=== PATIENT | female | born 1945 | race Two or more races ===

== ENCOUNTER 2019-11-11 18:24 | Inpatient (IN) | payer OTHER, MEDICAID ==
[~2019-11-11] VITALS: Ht 167.6 cm; Wt 69.5 kg
[~2019-11-11 18:24] MED LIST: LEVO25TA6
[2019-11-11 19:10] LABS: Basophils # (auto) 0 10 ^3/uL (0-0.2); Basophils % (auto) 0.5 % (0.0-2.0); Eosinophils # (auto) 0.1 10 ^3/uL (0-0.8); Eosinophils % (auto) 2.9 % (0.0-7.0); Hematocrit 39.8 % (36.0-46.0); Hemoglobin 13.4 g/dL (12.2-16.2); Lymphocytes # (auto) 0.8 10 ^3/uL (0.4-5.4); Lymphocytes % (auto) 25.9 % (10.0-50.0); Mean Corpuscular Hemoglobin 29.8 pg (28.0-32.0); Mean Corpuscular Hgb Conc. 33.8 g/dL (32.0-36.0); Mean Corpuscular Volume 88.4 fL (80.0-100.0); Monocytes # (auto) 0.4 10 ^3/uL (0-1.3); Neutrophils # (auto) 1.9 10 ^3/uL (1.6-8.6); Neutrophils % (auto) 59.7 % (37.0-80.0); Nucleated Red Blood Cells % 0.1 %; Platelet Count (auto) 182 10^3/uL (140-450); Red Cell Distribution Width 16.1 % (11.8-14.3); White Blood Cell 3.3 10^3/uL (4.4-10.8)
[2019-11-11 19:27] LABS: Albumin 3.4 g/dL (3.4-5.0); Calcium 8.3 mg/dL (8.5-10.1); Potassium 3.6 mmol/L (3.5-5.1)
[2019-11-11 19:30] LABS: Bilirubin, Total 0.5 mg/dL (0.2-1.0); Total Protein 7.1 g/dL (6.4-8.2)
[2019-11-11] MEDS ORDERED: cefTRIAXone 1GM/50ML D5W 50 ML IV ONE (20:00)
[2019-11-11] MEDS ORDERED: CLINDAMYCIN 900MG IV 50 ML IV ONE (20:00)
[2019-11-12] VITALS (10 sets, daily range): BP systolic 118–139; BP diastolic 54–79
[2019-11-12] MEDS ORDERED: DOCUSATE SOD 100 MG CAP PO PRN (02:30)
[2019-11-12] MEDS ORDERED: ACETAMINOPHEN 325 MG TAB PO PRN (02:30)
[2019-11-12] MEDS ORDERED: ONDANSETRON HCL 4 MG/2 ML VIAL IV PRN (02:30)
[2019-11-12] MEDS ORDERED: TEMAZEPAM 15 MG CAP PO PRN (02:30)
--- NOTE | 2019-11-12 05:00 | NUR ---
MS admit from ER TON LAY admitted to tele/MS. No SBAR received. Patient oriented to Satnam pleitez RN, west unit, 274 room, A bed, and unit policies regarding patient care and visiting hours. Patient weighed by bedscale and encouraged to call if they need something. All questions and concerns addressed, patient verbalized understanding. Pictures taken of right lower leg anterior for documentation of skin condition.
[2019-11-12] MEDS ORDERED: LEVO100T8 PO (05:11)
[2019-11-12] MEDS: CLINDAMYCIN 600MG IV 50 ML IV SCH ×3 (05:48→21:44)
[2019-11-12] MEDS: LEVOTHYROXINE SODIUM 50 MCG TAB PO SCH (06:11)
[2019-11-12] MEDS: cefTRIAXone 1GM/50ML D5W 50 ML IV SCH (08:46)
[2019-11-12] MEDS: FAMOTIDINE 20 MG TAB PO SCH ×2 (09:12→21:44)
--- NOTE | 2019-11-12 09:20 | NUR ---
REPORT RECEIVED FROM AMEYA OVIEDO Patient was upgraded to telemetry after cardiology consult. Awaiting Tele box.
--- NOTE | 2019-11-12 09:29 | NUR ---
EKG DONE sinus bradycardia 46 noted. Orion confirmed.
[2019-11-12 09:35] LABS: Magnesium 2.5 mg/dL (1.6-2.6)
--- NOTE | 2019-11-12 10:15 | NUR ---
RECYCLING WORKER AT BEDSIDE
--- NOTE | 2019-11-12 10:38 | NUR ---
TELE MONITOR PLACED ON PATIENT tele #55, reading shows SB 51.
--- NOTE | 2019-11-12 15:03 | NUR ---
AT BEDSIDE updated on patient status, plan of care reviewed with patient and she verbalized understanding. No new orders received.
--- NOTE | 2019-11-12 15:27 | NUR ---
PATIENT CONFUSED Patient pulled IV out and got dressed stating she was going home, Moved to 275A with a sitter.
--- NOTE | 2019-11-12 15:40 | NUR ---
CALLED PATIENT FAMILY after password verification, patient's daughter Danii was updated on patient being moved to a new room with a sitter. plan of care was discussed with the patient and she verbalized understanding. All questions answered.
--- NOTE | 2019-11-12 16:15 | NUR ---
IV insertion IV access obtained, via clean sterile technique by inserting 22 gauge catheter at left wrist after 2 attempts. IV secured properly. No trauma to site. Patient tolerated well. IV to left forearm was removed, pressure dressing applied, catheter intact. Patient tolerated well.
--- NOTE | 2019-11-12 19:30 | NUR ---
Opening Shift Note Received report from Samantha HOU. Assumed care of patient, awake and alert. Sitter at bedside. No S/S of distress/SOB or pain. Instructed on POC and to call for assist PRN. Fall precaution measures in place, will continue to monitor for changes Q1hr and PRN.
--- NOTE | 2019-11-12 23:21 | NUR ---
Received call from patient's daughter Danii requesting for update. I update her that patient is stable at this time and resting with sitter in the room.
--- NOTE | 2019-11-13 00:35 | NUR ---
Spoke to hospitalist Laurita Geronimo MD to request pain medication for severe pain since patient doesn't have one. made aware of allergy to Codeine, ordered Morphine IV see eMAR.
[2019-11-13] MEDS ORDERED: MORPHINE SULF INJ 2 MG/ML SYRINGE 1ML IV PRN (00:45)
--- NOTE | 2019-11-13 02:48 | NUR ---
Rounding Patient awake at this time with the sitter at bedside, no sob/distress or pain. Continue care.
[2019-11-13] MEDS: CLINDAMYCIN 600MG IV 50 ML IV SCH ×2 (06:05→14:35)
[2019-11-13 06:07] VITALS: BP 109/55
[2019-11-13] MEDS: LEVOTHYROXINE SODIUM 50 MCG TAB PO SCH (06:39)
[2019-11-13 07:28] LABS: Basophils # (auto) 0 10 ^3/uL (0-0.2); Basophils % (auto) 0.4 % (0.0-2.0); Eosinophils # (auto) 0.1 10 ^3/uL (0-0.8); Eosinophils % (auto) 3.3 % (0.0-7.0); Hematocrit 41.1 % (36.0-46.0); Hemoglobin 13.7 g/dL (12.2-16.2); Lymphocytes # (auto) 1.4 10 ^3/uL (0.4-5.4); Lymphocytes % (auto) 47.8 % (10.0-50.0); Mean Corpuscular Hemoglobin 29.5 pg (28.0-32.0); Mean Corpuscular Hgb Conc. 33.3 g/dL (32.0-36.0); Mean Corpuscular Volume 88.4 fL (80.0-100.0); Monocytes # (auto) 0.3 10 ^3/uL (0-1.3); Monocytes % (auto) 11.9 % (0.0-12.0); Neutrophils # (auto) 1.1 10 ^3/uL (1.6-8.6); Neutrophils % (auto) 36.6 % (37.0-80.0); Nucleated Red Blood Cells % 0.1 %; Platelet Count (auto) 217 10^3/uL (140-450); Red Blood Cells 4.65 10^6/uL (4.0-5.20); Red Cell Distribution Width 16.4 % (11.8-14.3); White Blood Cell 2.9 10^3/uL (4.4-10.8)
--- NOTE | 2019-11-13 07:30 | NUR ---
Opening Shift Note Assumed care of patient, awake and alert. No S/S of distress/SOB or pain. Instructed on POC and to call for assist PRN, will continue to monitor for changes Q1hr and PRN.
[2019-11-13 07:43] LABS: Calcium 8.5 mg/dL (8.5-10.1); Potassium 3.9 mmol/L (3.5-5.1)
[2019-11-13 07:45] LABS: BUN/Creatinine Ratio 15.4
[2019-11-13] MEDS: cefTRIAXone 1GM/50ML D5W 50 ML IV SCH (09:42)
[2019-11-13] MEDS: FAMOTIDINE 20 MG TAB PO SCH (09:42)
[2019-11-13] MEDS ORDERED: SACC250C PO (11:00)
[2019-11-13] MEDS ORDERED: CLIN300C8 PO (11:00)
--- NOTE | 2019-11-13 13:12 | NUR ---
assessment Patient is a 73 year old female who is alert and oriented. Patients cognitive abilities are intact. Prior to admission patient lived home with family and functioned independently. Patient informed me she is able to care for her own ADLs. Per patient she will return home to her prior living arrangements post discharge and family will transport her home. Patient has a cane for home use. Patient feels safe returning home on discharge. I informed patient she has a consult for home health PT, wound care, and medication management, vitals. Patient agreed. MD order has been sent to [facility]. Per Jackeline at [facility] she has accepted patient for service on 11/15/19. Patient has been notified. I informed patient she has a right to speak to a transition social worker regarding all care. I informed patient she has a right to participate in any and all discharge planning. Patient does not have a POA and advanced directive. I have offered patient information on POA and advanced directives. I informed the patient the advantages and benefits of having an Advanced Directive. Patient verbalized understanding and agreed to discharge plan. Addendum: 11/13/19 at 1318 by Dalila ALEXANDER Amended: Links added.
--- NOTE | 2019-11-13 14:52 | NUR ---
re-assessment Per Rosina from [facility] auth for Rachna Alberts is [id number]. Jackeline has been notified at [facility] health Addendum: 11/13/19 at 1452 by Dalila ALEXANDER Amended: Links added.
--- NOTE | 2019-11-13 17:34 | NUR ---
Discharge instructions given as ordered. Encourage to follow up with PMD as instructed. All questions and concerns addressed. Patient verbalized understanding. IV removed with catheter intact, pressure dressing applied. Telemetry unit returned to ICU. Patient taken to vehicle via wheelchair with all personal belongings, accompanied by staff and family member. No distress noted at time of departure.
== END 2019-11-13 18:40 | disposition home health service (06) | DRG 603 ==
LOC: ER 18:27 → WEST WING 18:28 → TELE-WESTW 11-12 09:21
PROVIDERS: ADMIT Nurse Practitioner; ATTEND Internal Medicine
DX: L03.115 Cellulitis of right lower limb (principal); E87.6 Hypokalemia; D72.829 Elevated white blood cell count, unspecified; F03.90 Unspecified dementia, unspecified severity, without behavioral disturbance, psychotic disturbance, mood disturbance, and anxiety; E03.9 Hypothyroidism, unspecified; Z88.5 Allergy status to narcotic agent; Z83.3 Family history of diabetes mellitus
CPT/HCPCS: 36415; 71045; 73700; 80048; 80053; 83735; 84443; 84484; 85025; 85379; 87040; 93306; 93886; 93971; 96365; 96368; G0378; J0696; J3490

== ENCOUNTER 2020-01-27 13:50 | Inpatient (IN) | payer OTHER, MEDICAID ==
[~2020-01-27] VITALS: Ht 165.1 cm; Wt 75.4 kg
[~2020-01-27 13:50] MED LIST changes: +CLIN300C8 PO; +LEVO100T8 PO; +SACC250C PO
[2020-01-27 15:14] LABS: Basophils # (auto) 0 10 ^3/uL (0-0.2); Basophils % (auto) 0.3 % (0.0-2.0); Eosinophils # (auto) 0 10 ^3/uL (0-0.8); Eosinophils % (auto) 0.4 % (0.0-7.0); Hematocrit 40.5 % (36.0-46.0); Hemoglobin 13.2 g/dL (12.2-16.2); Lymphocytes % (auto) 13.6 % (10.0-50.0); Mean Corpuscular Hemoglobin 29.8 pg (28.0-32.0); Mean Corpuscular Hgb Conc. 32.6 g/dL (32.0-36.0); Mean Corpuscular Volume 91.6 fL (80.0-100.0); Monocytes # (auto) 0.6 10 ^3/uL (0-1.3); Monocytes % (auto) 7.5 % (0.0-12.0); Neutrophils # (auto) 5.9 10 ^3/uL (1.6-8.6); Neutrophils % (auto) 78.2 % (37.0-80.0); Platelet Count (auto) 164 10^3/uL (140-450); Red Blood Cells 4.42 10^6/uL (4.0-5.20); Red Cell Distribution Width 14.5 % (11.8-14.3); White Blood Cell 7.6 10^3/uL (4.4-10.8)
[2020-01-27 15:25] LABS: Albumin 3.3 g/dL (3.4-5.0); Anion Gap 7 (5-15); Blood Urea Nitrogen 8 mg/dL (7-18); Calcium 8.8 mg/dL (8.5-10.1); Carbon Dioxide 28 mmol/L (21-32); Chloride 103 mmol/L (98-107); Glucose 90 mg/dL (74-106); Magnesium 2.4 mg/dL (1.6-2.6); Potassium 3.2 mmol/L (3.5-5.1); Sodium 138 mmol/L (136-145)
[2020-01-27 15:32] LABS: Alanine Aminotransferase 19 U/L (13-56); Alkaline Phosphatase 77 U/L (45-117); Aspartate Aminotransferase 16 U/L (15-37); Bilirubin, Total 0.9 mg/dL (0.2-1.0); GFR African American 90 mL/min; GFR Non-African American 75 mL/min; Total Protein 7.2 g/dL (6.4-8.2)
[2020-01-27] MEDS ORDERED: SODIUM CHLORIDE 0.9% 1,000 ML IVB ONE (15:34)
[2020-01-27] MEDS ORDERED: ONDANSETRON HCL 4 MG/2 ML VIAL IV ONE (15:45)
[2020-01-27] MEDS ORDERED: MORPHINE SULF INJ 2 MG/ML SYRINGE 1ML IV ONE (15:45)
[2020-01-27] MEDS ORDERED: cefTRIAXone 1GM/50ML D5W 50 ML IV ONE (16:30)
[2020-01-27] MEDS ORDERED: metroNIDAZOLE 500MG/100ML 100 ML IV ONE (16:30)
[2020-01-27 16:55] LABS: Urine Bacteria MOD /hpf (None Seen); Urine Blood 2+ /uL (Negative); Urine Specific Gravity 1.003 (1.001-1.035); Urine WBC 28 /hpf (0 - 5)
[2020-01-27] MEDS ORDERED: SODIUM CHLORIDE 0.9% 1,000 ML IV SCH ×2 (19:30→23:05)
[2020-01-27] MEDS ORDERED: MORPHINE SULF INJ 2 MG/ML SYRINGE 1ML IV PRN ×2 (19:30→23:15)
[2020-01-27] MEDS ORDERED: NITROGLYCERIN 0.4 MG SL TAB SL PRN ×2 (19:30→23:15)
[2020-01-27] MEDS ORDERED: POTASSIUM CHL 20MEQ/100ML 100 ML IV ONE (19:30)
--- NOTE | 2020-01-27 22:30 | NUR ---
Telemetry admit from ER TON LAY admitted to Telemetry unit after no SBAR received. With infiltrated IV to left outer AC. Patient oriented to BERTRAND PALACIOS RN primary RN, unit, room, bed, and unit policies regarding patient care and visiting hours. Patient now on continuous telemetry monitoring, tele box #53 and telemetry reading on arrival to unit is sinus bradycardia at 54. Patient weighed by bed scale and encouraged to call if they need something. All questions and concerns addressed, patient verbalized understanding. Note: Wound photos taken for reference. IV infusion stopped d/t infiltrated IV.
[2020-01-27] MEDS ORDERED: ALUM & MAG HYDROX-SIMETH LIQ(MAALOX) 30 ML PO PRN (23:15)
[2020-01-27] MEDS ORDERED: DOCUSATE SOD 100 MG CAP PO PRN (23:15)
[2020-01-27] MEDS ORDERED: ONDANSETRON HCL 4 MG/2 ML VIAL IV PRN (23:15)
[2020-01-27] MEDS ORDERED: LORazepam 0.5 MG TAB PO PRN (23:15)
[2020-01-27] MEDS ORDERED: ACETAMINOPHEN 325 MG TAB PO PRN (23:15)
--- NOTE | 2020-01-27 23:30 | NUR ---
IV insertion IV access obtained, via clean sterile technique by inserting 22 gauge catheter at right wrist after 2 attempts. IV secured properly. No trauma to site. Patient tolerated well.
--- NOTE | 2020-01-28 02:14 | NUR ---
Received call from [employer] reporting that patient is bradycardic at 40. Patient is resting in bed with eyes closed at this time. Respirations are even and non-labored. No distress noted.
--- NOTE | 2020-01-28 04:25 | NUR ---
Spoke with Gilles in lab. Previous urine sample sent for UA will be utilized for Bacterial culture.
[2020-01-28 05:00] VITALS: BP 106/67
[2020-01-28] MEDS: metroNIDAZOLE 500MG/100ML 100 ML IV SCH ×3 (06:20→21:17)
[2020-01-28] MEDS: GABAPENTIN 100 MG CAP PO SCH ×3 (06:20→21:17)
[2020-01-28] MEDS: LEVOTHYROXINE SODIUM 100 MCG TAB PO SCH (06:21)
[2020-01-28] MEDS ORDERED: LEVOTHYROXINE SODIUM 100 MCG TAB PO SCH (07:00)
[2020-01-28 07:15] LABS: Basophils # (auto) 0 10 ^3/uL (0-0.2); Basophils % (auto) 0.3 % (0.0-2.0); Eosinophils # (auto) 0.1 10 ^3/uL (0-0.8); Hematocrit 39.8 % (36.0-46.0); Hemoglobin 13.2 g/dL (12.2-16.2); Lymphocytes # (auto) 0.9 10 ^3/uL (0.4-5.4); Lymphocytes % (auto) 17.6 % (10.0-50.0); Mean Corpuscular Hemoglobin 29.9 pg (28.0-32.0); Mean Corpuscular Hgb Conc. 33.3 g/dL (32.0-36.0); Monocytes # (auto) 0.4 10 ^3/uL (0-1.3); Monocytes % (auto) 8.4 % (0.0-12.0); Neutrophils # (auto) 3.5 10 ^3/uL (1.6-8.6); Neutrophils % (auto) 71.7 % (37.0-80.0); Platelet Count (auto) 183 10^3/uL (140-450); Red Blood Cells 4.42 10^6/uL (4.0-5.20); Red Cell Distribution Width 14.3 % (11.8-14.3); White Blood Cell 4.8 10^3/uL (4.4-10.8)
[2020-01-28 07:29] LABS: INR 0.97 (0.9-1.15); Partial Thromboplastin Time 26.2 sec (23.0-31.2)
[2020-01-28 07:32] LABS: Albumin 2.8 g/dL (3.4-5.0); Magnesium 2.3 mg/dL (1.6-2.6)
[2020-01-28 07:36] LABS: Bilirubin, Total 0.6 mg/dL (0.2-1.0); Phosphorus 3.2 mg/dL (2.5-4.90); Total Protein 5.9 g/dL (6.4-8.2)
[2020-01-28 07:37] LABS: Cholesterol 140 mg/dL (< 200); HDL Cholesterol 63 mg/dL (40-59); LDL Cholesterol 66 mg/dL (< 100); Triglycerides 64 mg/dL (< 150)
--- NOTE | 2020-01-28 08:00 | NUR ---
Received pt resting in bed, call light within reach, pt reports mild back pain 3/10, pt offered pain medication, pt refused at this time, bed alarm on, will continue to monitor pt.
[2020-01-28 09:14] VITALS: BP 117/61
[2020-01-28] MEDS: cefTRIAXone 1GM/50ML D5W 50 ML IV SCH (09:30)
[2020-01-28] MEDS: FLORASTOR (S. BOULARDII) 250 MG CAP PO SCH (09:31)
[2020-01-28] MEDS: ENOXAPARIN SOD 40 MG/0.4 ML SYRINGE SC SCH (09:31)
--- NOTE | 2020-01-28 10:12 | NUR ---
WOUND CARE NOTE: Wound care in to see patient per wound care request regarding "chronic wound RLE, prolapse" that are noted present on admission. Bedside nurse took photograph of patient's wound/skin issue upon admission for reference. Patient is 74 years old female admitted for Acute Pyelonephritis likely secondary to Gram Negative Bacteria. Patient is resting in bed in Rm. 297A. Patient is awake,alert and fully oriented. She's in no stated pain at this time. She's self turning and repositioning and her Nathanael score is 20. Noted patient's open ulceration to her Rt distal hatch. Wound measuring 1.8x1cm. Wound bed is red with dark red sil wound, minimal serous drainage noted, no odor noted. Patient reported that she has had the R hatch wound "years ago" when she hurt her legs and "wound never heal". Patient denies Diabetes. Cleansed patient's Rt lower leg wound with NS, patted dry with gauze, applied Thera honey gel and covered with Opti foam gentle dressing. Patient also came in with bladder prolapse, advised to keep site clean and moist. AMEYA Chan made aware. Patient tolerated well, bed in low position, call wolf on hand, bed alarm on. RECOMMENDATION: Nursing to continue with EOD/PRN dressing change to Rt lower leg wound per MD order,redistribute pressure points with pillows, continue monitoring by wound care while patient is hospitalized. Addendum: 01/28/20 at 1608 by Kerry Guerrero RN Amended: Links added.
[2020-01-28] MEDS: POTASSIUM CHL 20MEQ/100ML 100 ML IV SCH ×2 (11:12→13:07)
--- NOTE | 2020-01-28 12:40 | NUR ---
Dr. Saavedra / GI at bed side to see pt, doctor discussed the plan of care for pt, pt educated to be npo for MRCP by nurse and doctor, pt verbalized understanding.
[2020-01-28 13:13] VITALS: BP 101/50
--- NOTE | 2020-01-28 16:28 | NUR ---
As per MRI, unable to do the MRCP due to pt drinking fluids. Pt was re-educated not to eat or drink after midnight for procedure.
[2020-01-28 16:41] VITALS: BP 108/63
--- NOTE | 2020-01-28 17:14 | NUR ---
Gutierrez catheter insertion Patient assessed by Dr. Marie / urologist and determined to be in need of gutierrez catheter. Order received from MD. Patient educated on catheter and reason for insertion. All questions answered. Gutierrez catheter 16 guage Italian inserted with clean sterile technique. Patient tolerated well.
--- NOTE | 2020-01-28 20:00 | NUR ---
Opening Shift Note Assumed care of patient, awake and alert. No S/S of distress/SOB or pain. Instructed on POC and to call for assist PRN, will continue to monitor for changes Q1hr and PRN.
[2020-01-28 22:00] VITALS: BP 135/62
[2020-01-29 05:00] VITALS: BP 112/48
[2020-01-29] MEDS: GABAPENTIN 100 MG CAP PO SCH ×3 (05:13→22:17)
[2020-01-29] MEDS: LEVOTHYROXINE SODIUM 100 MCG TAB PO SCH (05:13)
[2020-01-29] MEDS: metroNIDAZOLE 500MG/100ML 100 ML IV SCH ×3 (05:30→22:16)
--- NOTE | 2020-01-29 08:10 | NUR ---
URINE SENT TO LAB FOR PENDING CULTURE ORDER.
--- NOTE | 2020-01-29 08:21 | NUR ---
OPENING SHIFT NOTE: PATIENT RESTING IN BED AWAKE. PATIENT A/OX4 WITH MILD FORGETFULNESS, RESPIRATIONS EVEN AND UNLABORED. NORRIS HUNG BELOW BLADDER, FREE OF KINKS. THIS RN OBTAINED URINE SPECIMEN FOR CULTURE. PATIENT UPDATED ON PLAN OF CARE. CALL LIGHT PLACED WITHIN REACH, WILL CONTINUE TO MONITOR.
[2020-01-29 08:28] LABS: Urine Bacteria FEW /hpf (None Seen); Urine Blood 2+ /uL (Negative); Urine Mucus FEW (None Seen); Urine WBC 3 /hpf (0 - 5)
[2020-01-29 08:36] LABS: Alcohol, Urine < 3.0 mg/dL (0-10); Amphetamine Screen, Urine NEGATIVE (NEGATIVE); Barbiturate Scree,Urine NEGATIVE (NEGATIVE); Benzodiazephine Screen, Urine NEGATIVE (NEGATIVE); Cannabinoid Screen, Urine NEGATIVE (NEGATIVE); Cocaine Screen, Urine NEGATIVE (NEGATIVE); Opiate Scree,Urine NEGATIVE (NEGATIVE); Phencyclidine Screen, Urine NEGATIVE (NEGATIVE)
[2020-01-29 09:00] VITALS: BP 113/58
[2020-01-29] MEDS: cefTRIAXone 1GM/50ML D5W 50 ML IV SCH (09:24)
[2020-01-29] MEDS: FLORASTOR (S. BOULARDII) 250 MG CAP PO SCH (09:25)
[2020-01-29] MEDS: ENOXAPARIN SOD 40 MG/0.4 ML SYRINGE SC SCH (09:25)
--- NOTE | 2020-01-29 09:40 | NUR ---
MD CHAPMAN ROUNDING.
--- NOTE | 2020-01-29 09:48 | NUR ---
MD KARINE NAGEL.
--- NOTE | 2020-01-29 09:48 | NUR ---
MRI VERIFIED PATIENT IS ON THE SCHEDULE FOR MRCP TODAY.
--- NOTE | 2020-01-29 09:50 | NUR ---
UNABLE TO SCHEDULE FOLLOW UP WITH DR. CORCORAN: PATIENT IS [facility], AND PER UROLOGY RISK PROFESSIONAL PATIENT MUST GET REFERRAL FROM PRIMARY
--- NOTE | 2020-01-29 12:00 | NUR ---
PATIENT TAKEN DOWN TO MRI.
[2020-01-29 13:00] VITALS: BP 133/79
--- NOTE | 2020-01-29 15:30 | NUR ---
HOME HEALTH: PER PATIENT AND PATIENT FAMILY, THEY CURRENTLY HAVE HOME CARE, HOME HEALTH FOR WOUND CARE.
--- NOTE | 2020-01-29 17:54 | NUR ---
CONSENTS: PATIENT UNABLE TO RECALL MD YIN SPEAKING WITH HER ABOUT ERCP PROCEDURE . PATIENT UNABLE TO SIGN INFORMED CONSENTS AT THIS TIME. BLOOD TRANSFUSION CONSENT SIGNED AND PLACED IN THE HARD CHART.
[2020-01-29 18:02] VITALS: BP 133/69
--- NOTE | 2020-01-29 18:52 | NUR ---
CARE ENDORSED TO NOC RN.
--- NOTE | 2020-01-29 19:00 | NUR ---
Received report from the Day RN. Bullock.
--- NOTE | 2020-01-29 19:24 | NUR ---
SB @ 58 per minute @ the Tele # 54. Pt. SB @ the 50's to 60's per minute.
--- NOTE | 2020-01-29 20:00 | NUR ---
Complete assessment done.
[2020-01-29 22:00] VITALS: BP 149/67
--- NOTE | 2020-01-29 22:16 | NUR ---
Meds. as scheduled given. Pt. made aware about the mechanism of action of the scheduled meds. Pt. verbalized understanding.
--- NOTE | 2020-01-30 00:10 | NUR ---
Pt. SB @ the monitor, stimulated pt. by waking up. Pt. HR returned to 50's to 60's
--- NOTE | 2020-01-30 02:00 | NUR ---
Pt. sleeping well. No s/s of pain or discomfort.
[2020-01-30 05:00] VITALS: BP 115/62
[2020-01-30] MEDS: GABAPENTIN 100 MG CAP PO SCH ×3 (06:31→21:36)
[2020-01-30] MEDS: metroNIDAZOLE 500MG/100ML 100 ML IV SCH ×3 (06:31→21:36)
[2020-01-30] MEDS: LEVOTHYROXINE SODIUM 100 MCG TAB PO SCH (06:32)
--- NOTE | 2020-01-30 08:00 | NUR ---
OPENING SHIFT NOTE: PATIENT RESTING IN BED AWAKE. PATIENT A/OX4 WITH MILD FORGETFULNESS, RESPIRATIONS EVEN AND UNLABORED. NORRIS HUNG BELOW BLADDER, FREE OF KINKS. PATIENT UPDATED ON PLAN OF CARE. CURRENTLY NPO STATUS. CALL LIGHT PLACED WITHIN REACH, WILL CONTINUE TO MONITOR.
[2020-01-30 09:00] VITALS: BP 130/72
[2020-01-30] MEDS: HYDROcodone-ACET 5/325MG TAB PO PRN (09:33)
[2020-01-30] MEDS: ENOXAPARIN SOD 40 MG/0.4 ML SYRINGE SC SCH (09:33)
[2020-01-30] MEDS: FLORASTOR (S. BOULARDII) 250 MG CAP PO SCH (09:33)
[2020-01-30] MEDS: cefTRIAXone 1GM/50ML D5W 50 ML IV SCH (09:33)
--- NOTE | 2020-01-30 10:29 | NUR ---
MD SAINZ ROUNDING: EKG TO BE DONE PRIOR TO PROCEDURE. PATIENT UPDATED ON PLAN OF CARE.
--- NOTE | 2020-01-30 11:20 | NUR ---
EKG: MD AT BEDSIDE, HR 38 AND 41BPM. SINUS BRADYCARDIA. PATIENT ASYMPTOMATIC. MD TO PLACE CARDIOLOGY CONSULT.
--- NOTE | 2020-01-30 11:40 | NUR ---
CALL FROM PRINTING PRESS MACHINIST VIRI: UPDATED ON CURRENT CARDIAC STATUS, PRINTING PRESS MACHINIST TO UPDATE ANAESTHESIA. SHE ALSO RECOMMEND PER PROTOCOL COVID SWAB. THIS RN TO CALL LAB FOR SWAB. MD SAINZ MADE AWARE.
[2020-01-30 11:49] LABS: BUN/Creatinine Ratio 5.9; Calcium 8.3 mg/dL (8.5-10.1)
[2020-01-30 12:00] LABS: Potassium 2.9 mmol/L (3.5-5.1)
--- NOTE | 2020-01-30 12:06 | NUR ---
CRITICAL LAB: K+ 2.9 PAGE MADE TO EMELI.
--- NOTE | 2020-01-30 12:18 | NUR ---
MD DINH ROUNDING: "PATIENT CLEARED FOR PROCEDURE FROM CARDIAC STANDPOINT," PER DR. DINH.
--- NOTE | 2020-01-30 12:21 | NUR ---
CALL FROM MD YIN: INQUIRING ABOUT CARDIAC CLEARANCE, INFORMED MD THAT DR. DINH JUST CLEARED PATIENT. THEN MD YIN INQUIRED ABOUT POTASSIUM, INFORMED HIM THAT I AM WAITING FOR CALL BACK FROM MD SAINZ. INSISTED I BRING PATIENT DOWN TO OR AND THEY CAN HANG POTASSIUM IN THE OR.
[2020-01-30] MEDS ORDERED: POTASSIUM CHL 20MEQ/100ML 100 ML IV SCH (12:30)
--- NOTE | 2020-01-30 12:31 | NUR ---
CANCELLED: THIS RN EN ROUTE TO OR WITH COVID SWAB IN HAND. CALL FROM MD YIN STATING PROCEDURE IS CANCELLED AND SCHEDULED TOMORROW. THIS RN INFORMED MD PATIENT CONFUSED AND WOULD LIKE A DR. TO COME SPEAK WITH HER AT BEDSIDE REGARDING, "WHAT IS HAPPENING." MD AGREED. PATIENT TAKEN BACK TO ROOM.
--- NOTE | 2020-01-30 12:35 | NUR ---
CECI WALKED TO LAB.
--- NOTE | 2020-01-30 12:35 | NUR ---
MD YIN SEEN LEAVING PATIENT BEDSIDE. PATIENT CONFIRMED HE UPDATED HER ON PLAN OF CARE.
[2020-01-30 13:00] VITALS: BP 126/70
--- NOTE | 2020-01-30 15:31 | NUR ---
ECHO READ FROM OCTOBER VISIT. CURRENT ORDER CANCELLED.
[2020-01-30] MEDS ORDERED: POTASSIUM EFFERVESENT TAB 25 MEQ PO ONE (15:45)
--- NOTE | 2020-01-30 16:16 | NUR ---
CALL FROM EMELI: CMP SCHEDULED FOR 01/30 0000 CHANGED TO 0400 01/30, AND ADDITIONAL BMP ORDER PLACED FOR 01/29 FOR PRIMARY MD SAINZ TO ADDRESS PRIOR TO GOING HOME PER REQUEST. COMMUNICATION ORDER ALSO CHANGED, TEXT KEPT THE SAME BUT TO NOTIFY TOWER EQUIPMENT INSTALLER NIGHT HOSPITALIST IF K+ IS LESS THAN OR EQUAL TO 3.5 AT 0400.
[2020-01-30] MEDS: POTASSIUM CHLORIDE 40 MEQ in D5W 5% 1,000 ML IV SCH (16:20)
[2020-01-30 17:00] VITALS: BP 127/76
--- NOTE | 2020-01-30 18:42 | NUR ---
WOUND CARE PERFORMED ORDERED.
--- NOTE | 2020-01-30 18:43 | NUR ---
CARE ENDORSED TO NOC RN.
--- NOTE | 2020-01-30 19:10 | NUR ---
Received report to from the Day Shift RN. Bullock. Initial assessment done.
--- NOTE | 2020-01-30 19:38 | NUR ---
Pt. SB @ 45/min. with BBB @ [employer] # 54. Pt. denies chest pain and denies chest discomfort.
--- NOTE | 2020-01-30 20:00 | NUR ---
Complete assessment done. Pt. resting in bed, calm and resting quietly watching TV. Pt. with D5 W with 40 meq. KCl @ 50 ml./hr. @ the Right Wrist G # 22 running continuous to consume for K level today of 2.9. Will continue to monitor pt. lab. result of K level as ordered by .
--- NOTE | 2020-01-30 21:36 | NUR ---
Meds. as scheduled given. Pt. provided health teachings on the use and benefits of these meds. Pt. verbalized understanding. Pt. ready to sleep, keep safe and fundraising director bed. Keep room free from clutter. Call-light @ the bedside.
[2020-01-30 21:40] LABS: Anion Gap 7 (5-15); BUN/Creatinine Ratio 5.6; Blood Urea Nitrogen 3 mg/dL (7-18); Calcium 7.9 mg/dL (8.5-10.1); Carbon Dioxide 26 mmol/L (21-32); Chloride 108 mmol/L (98-107); GFR African American 142 mL/min; GFR Non-African American 118 mL/min; Glucose 106 mg/dL (74-106); Sodium 141 mmol/L (136-145)
[2020-01-30 23:12] VITALS: BP 137/72
--- NOTE | 2020-01-31 00:10 | NUR ---
Pt. calm and sleeping undisturbed. No s/s of pain or discomfort. Pt. still SB @ the 40's to 50's. Pt. on NPO post MN for possible ERCP tomorrow once K level is within normal range. Pt. on D5W with 40 meq. KCL @ 50 ml./hr. continuous till 1 liter bag consume. Continue to monitor pt. telemetry status and labs. q daily. Call-light @ the bedside.
--- NOTE | 2020-01-31 02:00 | NUR ---
Pt. sleeping and resting quietly. No s/s of pain or discomfort. Kept on NPO since midnight for possible ERCP today as ordered once K level is within normal range result.
--- NOTE | 2020-01-31 04:00 | NUR ---
Sleeping well. Kept. pt. on NPO for possible ERCP today. Latest K Level = 4.0
[2020-01-31 05:28] VITALS: BP 121/66
[2020-01-31] MEDS: GABAPENTIN 100 MG CAP PO SCH ×3 (06:22→21:55)
[2020-01-31] MEDS: metroNIDAZOLE 500MG/100ML 100 ML IV SCH ×3 (06:22→21:55)
[2020-01-31] MEDS: LEVOTHYROXINE SODIUM 100 MCG TAB PO SCH (06:23)
[2020-01-31] MEDS ORDERED: IOHEXOL 300 MG/ML 100ML BOTTLE IJ ONE (06:33)
[2020-01-31 06:44] LABS: Albumin 2.6 g/dL (3.4-5.0); Calcium 8.5 mg/dL (8.5-10.1); Potassium 3.4 mmol/L (3.5-5.1)
[2020-01-31 06:46] LABS: BUN/Creatinine Ratio 4.9
[2020-01-31 06:49] LABS: Bilirubin, Total 0.5 mg/dL (0.2-1.0)
[2020-01-31] MEDS ORDERED: fentaNYL CITRATE 100 MCG/2 ML VL ONE (07:23)
[2020-01-31] MEDS ORDERED: MIDAZOLAM HCL 1MG/1ML-2 ML VIAL ONE (07:24)
--- NOTE | 2020-01-31 07:24 | NUR ---
PATIENT TAKEN DOWN TO PACU.
[2020-01-31] MEDS ORDERED: ROCURONIUM 10MG/ML 10ML VIAL IV ONE (07:27)
[2020-01-31] MEDS ORDERED: SUCCINYLCHOLINE CHLORIDE 20 MG/ML 10ML VIAL IV ONE (07:36)
[2020-01-31] MEDS ORDERED: ONDANSETRON HCL 4 MG/2 ML VIAL ONE (08:13)
[2020-01-31] MEDS ORDERED: PROPOFOL 10 MG/ML 20 ML IV ONE (08:13)
[2020-01-31] MEDS ORDERED: NEOSTIGMINE 1 MG/ML INJ (10mg/10ML VIAL) ONE (08:23)
[2020-01-31] MEDS ORDERED: GLYCOPYRROLATE 0.2 MG/ML 1ML VIAL ONE (08:24)
[2020-01-31] MEDS: POTASSIUM CHLORIDE 40 MEQ in D5W 5% 1,000 ML IV SCH (08:54)
[2020-01-31] MEDS ORDERED: HYDROmorphone HCL 2 MG/ML VL ONE (08:57)
[2020-01-31] MEDS ORDERED: METOCLOPRAMIDE HCL 5MG/ml INJ 2ml VIAL ONE (08:57)
[2020-01-31] MEDS ORDERED: METOCLOPRAMIDE HCL 5MG/ml INJ 2ml VIAL IV PRN (09:00)
[2020-01-31] MEDS ORDERED: HYDROmorphone HCL 2 MG/ML VL IV PRN (09:00)
--- NOTE | 2020-01-31 09:30 | NUR ---
PATIENT BACK IN ROOM FROM OR. VS STABLE, PATIENT RESTING COMFORTABLY.
[2020-01-31] MEDS: FLORASTOR (S. BOULARDII) 250 MG CAP PO SCH (10:24)
[2020-01-31] MEDS: cefTRIAXone 1GM/50ML D5W 50 ML IV SCH (10:24)
[2020-01-31] MEDS: ENOXAPARIN SOD 40 MG/0.4 ML SYRINGE SC SCH (10:24)
--- NOTE | 2020-01-31 10:50 | NUR ---
MD SAINZ ROUNDING: DC'D FLUIDS, POTASSIUM ORDERED.
[2020-01-31] MEDS ORDERED: POTASSIUM EFFERVESENT TAB 25 MEQ PO ONE (11:00)
--- NOTE | 2020-01-31 11:20 | NUR ---
PATIENT UP AMBULATING IN UNIT WITH PHYSICAL THERAPY.
[2020-01-31 13:00] VITALS: BP 81/53
[2020-01-31 13:24] VITALS: BP 104/62
--- NOTE | 2020-01-31 13:51 | NUR ---
Nutrition Assessment Notes Please refer to link for full assessment notes. Est Energy needs: 5192-4472 kcals (20-23 kcal/kgBW) Est Protein needs: 77-85 gms/day (1.0-1.1 gm/kgBW) Will continue to monitor and reassess prn. Addendum: 01/31/20 at [address] Amended: Links added.
[2020-01-31 16:07] VITALS: BP 98/59
[2020-01-31 16:49] VITALS: BP 118/53
--- NOTE | 2020-01-31 18:44 | NUR ---
CARE ENDORSED TO NOC RN.
--- NOTE | 2020-01-31 19:30 | NUR ---
Opening shift note Assumed care of patient who is A&Ox4, respirations even and non-labored with no s/s of distress. Discussed POC and NPO status for her procedure the following day and patient verbalized understanding. Noted Vicente patent draining yellow urine. Advised patient to call for assistance to the bathroom. Bed in lowest locked position with 2 side rails up, call light within reach. Will continue to monitor Q1hr and PRN
[2020-01-31 22:00] VITALS: BP 94/57
--- NOTE | 2020-01-31 22:28 | NUR ---
IV insertion IV access obtained, via clean sterile technique by inserting 20 gauge catheter at right AC after 1 attempt. IV secured properly. No trauma to site. Patient tolerated well.
[2020-02-01 05:00] VITALS: BP 101/57
[2020-02-01] MEDS: LEVOTHYROXINE SODIUM 100 MCG TAB PO SCH (06:00)
[2020-02-01] MEDS: GABAPENTIN 100 MG CAP PO SCH ×3 (06:00→22:22)
--- NOTE | 2020-02-01 06:30 | NUR ---
Patient prepared for surgery CHG wipes, linen change, gown change. Patient tolerated well.
[2020-02-01] MEDS: metroNIDAZOLE 500MG/100ML 100 ML IV SCH ×3 (06:33→22:22)
[2020-02-01 06:59] LABS: INR 1.09 (0.9-1.15); Partial Thromboplastin Time 25.9 sec (23.0-31.2)
[2020-02-01 07:06] LABS: Bilirubin, Direct 0.2 mg/dL (0-0.2); Bilirubin, Total 0.4 mg/dL (0.2-1.0)
--- NOTE | 2020-02-01 07:55 | NUR ---
Opening Shift Note Assumed care of patient, asleep but easily aroused. No S/S of distress/SOB or pain. Will follow up with instructions on POC and to call for assist PRN, will continue to monitor for changes Q1hr and PRN. Bed alarm on for safety.
--- NOTE | 2020-02-01 08:20 | NUR ---
Surgery Patient is not on list for surgery today as per per-op RN. Addendum: 02/01/20 at 2004 by JESSICA SMALL RN Patient is not on list for surgery today as per pre-op RN.
[2020-02-01 09:00] VITALS: BP 112/59
[2020-02-01] MEDS: ENOXAPARIN SOD 40 MG/0.4 ML SYRINGE SC SCH (09:44)
[2020-02-01] MEDS: FLORASTOR (S. BOULARDII) 250 MG CAP PO SCH (09:44)
[2020-02-01] MEDS: cefTRIAXone 1GM/50ML D5W 50 ML IV SCH (09:45)
[2020-02-01 13:00] VITALS: BP 125/77
[2020-02-01 16:57] VITALS: BP 119/59
--- NOTE | 2020-02-01 19:25 | NUR ---
Opening shift note Assumed care of patient who is A&Ox4, respirations even and non-labored with no s/s of distress at this time. Discussed patients POC and NPO status, patient verbalized understanding. Vicente patent draining clear yellow urine. Bed in lowest locked position with 2 side rails up, bed alarm on, call light within reach. Will continue to monitor.
[2020-02-01] MEDS ORDERED: LACTATED RINGER'S 1,000 ML IV SCH (19:30)
[2020-02-01] MEDS: LACTATED RINGER'S 1,000 ML IV SCH (19:30)
[2020-02-01 22:00] VITALS: BP 130/52
--- NOTE | 2020-02-01 22:56 | NUR ---
WOUND CARE Patient wound cleansed/irrigated, thera-honey applied, covered with optifoam as ordered. Patient tolerated well.
[2020-02-02 05:00] VITALS: BP 106/61
[2020-02-02] MEDS: LEVOTHYROXINE SODIUM 100 MCG TAB PO SCH (05:35)
[2020-02-02] MEDS: GABAPENTIN 100 MG CAP PO SCH ×3 (05:35→22:04)
[2020-02-02] MEDS: metroNIDAZOLE 500MG/100ML 100 ML IV SCH ×3 (05:35→22:04)
[2020-02-02] MEDS: LACTATED RINGER'S 1,000 ML IV SCH ×2 (07:30→13:23)
[2020-02-02 09:00] VITALS: BP 127/47
[2020-02-02] MEDS: ENOXAPARIN SOD 40 MG/0.4 ML SYRINGE SC SCH (09:53)
[2020-02-02] MEDS: FLORASTOR (S. BOULARDII) 250 MG CAP PO SCH (09:53)
[2020-02-02] MEDS: cefTRIAXone 1GM/50ML D5W 50 ML IV SCH (09:54)
--- NOTE | 2020-02-02 12:20 | NUR ---
PT SIGNED CONSENT FOR LAP JUSTYN
[2020-02-02 13:00] VITALS: BP 120/65
--- NOTE | 2020-02-02 14:54 | NUR ---
Nutrition Followup Note Wt 72.2 kg Pt was sleeping with no family by bedside. per records pt s/p ERCP and to have cholecystectomy mellissa. pt is currently NPO Est Energy needs: 1080-1796 kcals (20-23 kcal/kgBW), Est Protein needs: 77-85 gms/day (1.0-1.1 gm/kgBW). Will continue to monitor and reassess prn. Labs: AMYLASE 354 H, LIPASE 654 H BM: Pt with 2 BM today per RN note Skin: BS 19 low risk, full details in rn wound care note. PES: Altered nutrition related labs aeb pt with elevated pancreatic enzymes Will continue to monitor NPO status, skin status, pertinent labs and weight trends. Will f/u in 2-3 days. Rec: 1) Continue to carefully monitor pt NPO status. 2) Gradually advance pt to oral ( ) diet when medically feasible and as tolerated 2) Continue current plan of care
[2020-02-02 17:00] VITALS: BP 126/63
[2020-02-02 22:00] VITALS: BP 140/70
[2020-02-03 05:00] VITALS: BP 114/64
[2020-02-03] MEDS: GABAPENTIN 100 MG CAP PO SCH ×3 (05:53→22:12)
[2020-02-03] MEDS: metroNIDAZOLE 500MG/100ML 100 ML IV SCH ×3 (05:53→22:12)
[2020-02-03] MEDS: LEVOTHYROXINE SODIUM 100 MCG TAB PO SCH (05:53)
[2020-02-03 09:00] VITALS: BP 106/57
[2020-02-03] MEDS: cefTRIAXone 1GM/50ML D5W 50 ML IV SCH (09:07)
[2020-02-03] MEDS: LACTATED RINGER'S 1,000 ML IV SCH (09:07)
[2020-02-03] MEDS: FLORASTOR (S. BOULARDII) 250 MG CAP PO SCH (09:11)
[2020-02-03] MEDS: ENOXAPARIN SOD 40 MG/0.4 ML SYRINGE SC SCH (09:11)
[2020-02-03 10:46] LABS: Basophils # (auto) 0 10 ^3/uL (0-0.2); Basophils % (auto) 0.3 % (0.0-2.0); Eosinophils # (auto) 0.1 10 ^3/uL (0-0.8); Eosinophils % (auto) 2.2 % (0.0-7.0); Hematocrit 41.7 % (36.0-46.0); Hemoglobin 14.1 g/dL (12.2-16.2); Lymphocytes # (auto) 1.1 10 ^3/uL (0.4-5.4); Lymphocytes % (auto) 18.1 % (10.0-50.0); Mean Corpuscular Hemoglobin 30.1 pg (28.0-32.0); Mean Corpuscular Hgb Conc. 33.8 g/dL (32.0-36.0); Mean Corpuscular Volume 88.9 fL (80.0-100.0); Monocytes # (auto) 0.6 10 ^3/uL (0-1.3); Monocytes % (auto) 9.3 % (0.0-12.0); Neutrophils # (auto) 4.4 10 ^3/uL (1.6-8.6); Neutrophils % (auto) 70.1 % (37.0-80.0); Platelet Count (auto) 255 10^3/uL (140-450); Red Blood Cells 4.69 10^6/uL (4.0-5.20); Red Cell Distribution Width 14.1 % (11.8-14.3); White Blood Cell 6.3 10^3/uL (4.4-10.8)
[2020-02-03 11:00] LABS: Albumin 3.1 g/dL (3.4-5.0); Calcium 8.7 mg/dL (8.5-10.1); Potassium 3.3 mmol/L (3.5-5.1)
[2020-02-03 11:04] LABS: BUN/Creatinine Ratio 12.7; Bilirubin, Total 0.6 mg/dL (0.2-1.0)
--- NOTE | 2020-02-03 12:35 | NUR ---
PT TO OR VIA BED AT 1220.
[2020-02-03] MEDS ORDERED: ceFAZolin 1GM/50ML 50 ML IV ONE (12:42)
[2020-02-03] MEDS ORDERED: SUCCINYLCHOLINE CHLORIDE 20 MG/ML 10ML VIAL IV ONE (12:49)
[2020-02-03] MEDS ORDERED: ETOMIDATE (2MG/ML) 20ML VIAL IV ONE (12:49)
[2020-02-03] MEDS ORDERED: POVIDONE IODINE 10 % TOPICAL OINT 30GM TOP ONE (12:52)
[2020-02-03] MEDS ORDERED: MIDAZOLAM HCL 1MG/1ML-2 ML VIAL ONE (12:56)
[2020-02-03] MEDS ORDERED: SODIUM CHLORIDE LOCK 10 ML ONE (12:56)
[2020-02-03] MEDS ORDERED: NEOSTIGMINE 1 MG/ML INJ (10mg/10ML VIAL) ONE (12:56)
[2020-02-03] MEDS ORDERED: ROCURONIUM 10MG/ML 10ML VIAL IV ONE (12:56)
[2020-02-03] MEDS ORDERED: ONDANSETRON HCL 4 MG/2 ML VIAL ONE (12:56)
[2020-02-03] MEDS ORDERED: GLYCOPYRROLATE 0.2 MG/ML 1ML VIAL ONE (12:56)
[2020-02-03] MEDS ORDERED: fentaNYL CITRATE 100 MCG/2 ML VL ONE (12:56)
[2020-02-03] MEDS ORDERED: MEPERIDINE HCL (25 MG/ML) 1ML VIAL ONE (12:56)
[2020-02-03 13:00] VITALS: BP 86/45
[2020-02-03] MEDS ORDERED: fentaNYL CITRATE 100 MCG/2 ML VL IV PRN (13:00)
[2020-02-03] MEDS ORDERED: HYDROmorphone HCL 2 MG/ML VL IV PRN (13:00)
[2020-02-03] MEDS ORDERED: MORPHINE SULFATE 4 MG/ML SYR/VIAL IV PRN (13:00)
[2020-02-03] MEDS ORDERED: ONDANSETRON HCL 4 MG/2 ML VIAL IV PRN (13:00)
--- NOTE | 2020-02-03 15:43 | NUR ---
pt returned to floor approx. 1520. drowsy, easily arousable. vss. pt denies pain/nausea. 3 lap sites to abd inact. abdominal binder in place. continuing to monitor closely.
[2020-02-03 16:59] VITALS: BP 108/61
--- NOTE | 2020-02-03 19:20 | NUR ---
Opening Shift Note Assumed care of patient after receiving report from Ela. Patient is awake and alert with no S/S of distress/SOB or pain. Call light within reach, bed in lowest locked position, HOB semi fowlers. Instructed on POC and to call for assist PRN, will continue to monitor for changes Q1hr and PRN.
[2020-02-03] MEDS: POTASSIUM CHL 20MEQ/100ML 100 ML IV SCH ×2 (19:45→21:26)
[2020-02-03] MEDS: MORPHINE SULF INJ 2 MG/ML SYRINGE 1ML IV PRN (20:25)
[2020-02-03 22:00] VITALS: BP 108/60
[2020-02-04] MEDS: MORPHINE SULF INJ 2 MG/ML SYRINGE 1ML IV PRN (03:14)
--- NOTE | 2020-02-04 05:29 | NUR ---
IV removal After noting IV was leaking, IV DC'd with clean sterile technique, catheter fully intact. Pressure dressing applied to site. Patient tolerated well.
[2020-02-04] MEDS: metroNIDAZOLE 500MG/100ML 100 ML IV SCH ×2 (05:46→13:31)
[2020-02-04] MEDS: GABAPENTIN 100 MG CAP PO SCH ×3 (05:46→21:29)
[2020-02-04] MEDS: LEVOTHYROXINE SODIUM 100 MCG TAB PO SCH (05:47)
[2020-02-04 06:01] VITALS: BP 100/63
[2020-02-04] MEDS: LACTATED RINGER'S 1,000 ML IV SCH (06:42)
--- NOTE | 2020-02-04 06:42 | NUR ---
Delay in administering scheduled 05:00 LR due to current bag not being finished. New bag of LR hung and running.
[2020-02-04 07:07] LABS: Basophils # (auto) 0 10 ^3/uL (0-0.2); Basophils % (auto) 0.1 % (0.0-2.0); Eosinophils # (auto) 0.1 10 ^3/uL (0-0.8); Eosinophils % (auto) 1.6 % (0.0-7.0); Hematocrit 39.5 % (36.0-46.0); Hemoglobin 13.6 g/dL (12.2-16.2); Lymphocytes # (auto) 0.7 10 ^3/uL (0.4-5.4); Mean Corpuscular Hemoglobin 30.5 pg (28.0-32.0); Mean Corpuscular Hgb Conc. 34.4 g/dL (32.0-36.0); Mean Corpuscular Volume 88.8 fL (80.0-100.0); Monocytes # (auto) 0.6 10 ^3/uL (0-1.3); Monocytes % (auto) 8.8 % (0.0-12.0); Neutrophils % (auto) 78.5 % (37.0-80.0); Nucleated Red Blood Cells % 0.1 %; Platelet Count (auto) 229 10^3/uL (140-450); Red Blood Cells 4.45 10^6/uL (4.0-5.20); Red Cell Distribution Width 14.2 % (11.8-14.3); White Blood Cell 6.4 10^3/uL (4.4-10.8)
[2020-02-04 07:30] LABS: Potassium 3.7 mmol/L (3.5-5.1)
[2020-02-04 07:55] LABS: Albumin 2.9 g/dL (3.4-5.0); BUN/Creatinine Ratio 13.8; Bilirubin, Total 0.5 mg/dL (0.2-1.0); Calcium 8.5 mg/dL (8.5-10.1); Total Protein 6.6 g/dL (6.4-8.2)
[2020-02-04] MEDS: cefTRIAXone 1GM/50ML D5W 50 ML IV SCH (08:54)
--- NOTE | 2020-02-04 08:57 | NUR ---
TOLERATING ORANGE JUICE AND CRACKERS. FINGERSTICK 88 AT THIS TIME. STILL AWAITING ON RETURN CALL FROM HOSPITALIST.
--- NOTE | 2020-02-04 08:59 | NUR ---
AT 0811 RECEIVED CALL FROM LAB WITH CRITICAL VALUE BLOOD GLUCOSE 48. FINGERSTICK BLOOD SUGAR AT 0815 WAS 54. RECHECK WAS 49. PT AWAKE, ALERT. SITTING UP IN BED TALKING. ORANGE JUICE AND CRACKERS GIVEN. VSS. HOSPITALIST PAGED. AT 0850 FINGERSTICK 88. MONITORING PT CAREFULLY.
[2020-02-04 09:00] VITALS: BP 98/62
[2020-02-04] MEDS: FLORASTOR (S. BOULARDII) 250 MG CAP PO SCH (09:42)
[2020-02-04] MEDS ORDERED: D5W/SOD CHLO 0.9% 1,000 ML IV SCH ×3 (09:45→14:30)
--- NOTE | 2020-02-04 09:49 | NUR ---
DR MILTON NOTIFIED OF PT BLOOD SUGAR. NEW ORDERS RECEIVED AND CARRIED OUT.
--- NOTE | 2020-02-04 12:30 | NUR ---
WOUND CARE NOTE: IN TO SEE PATIENT AT THIS TIME FOR SKIN INTEGRITY MONITORING. PATIENT HAS CURRENT WHITLEY SCORE OF 12. SHE IS UP IN CHAIR, WITH GOOD BALANCE NOTED. PATIENT HAS A PUNCTURE WOUND TO THE RIGHT GARCIA. WOUND APPEARS TO BE RESOLVING/IMPROVING WELL. WOUND MEASURES 1 X 0.5 CM. WOUNDBED IS DUSKY RED, WITH SCANT SEROUS DRAINAGE NOTED. PERIWOUND IS BROWN WITH HEMOSIDERIN STAIN. WOUND PHOTOGRAPHED FOR REFERENCE AT THIS TIME. CLEANSED AND DRESSED WOUND PER MD ORDER. NO OTHER SKIN INTEGRITY ISSUES NOTED. SKIN/WOUND CARE PLAN UPDATED. RECOMMEND: CONTINUATION WITH ALL WOUND CARE ORDERS PREVIOUSLY PRESCRIBED BY MD. WOUND CARE TEAM WILL CONTINUE TO MONITOR. Addendum: 02/04/20 at 1502 by Kaitlin Ying RN Amended: Links added.
[2020-02-04 12:54] VITALS: BP 85/53
--- NOTE | 2020-02-04 14:20 | NUR ---
bp 85/53. DR MILTON NOTIFIED. NEW ORDERS NOTED.
--- NOTE | 2020-02-04 14:51 | NUR ---
Nutrition Followup Note Wt 71.9kg Pt was with care team at time of rounds. Pt is s/p ERCP with lap elisa scheduled for 02/02. Pt consumed 100% of CLD 02/02 per RN note. Will continue to monitor pt diet advance and tolerance of diet as it advances. Est Energy needs: 0655-4084 kcals (20-23 kcal/kgBW), Est Protein needs: 77-85 gms/day (1.0-1.1 gm/kgBW). Will continue to monitor and reassess prn. Labs: AMYLASE 354 H, LIPASE 654 H, Alb 2.9L BM: Pt with 1 BM 02/02 per RN note Skin: BS 19 low risk, full details in care provider note. PES: Altered nutrition related labs aeb pt with elevated pancreatic enzymes Will continue to monitor NPO status, skin status, pertinent labs and weight trends. Will f/u in 2-3 days. Rec: 1) Continue to carefully monitor pt NPO status. 2) Gradually advance pt to oral diet when medically feasible and as tolerated 2) Continue current plan of care
--- NOTE | 2020-02-04 15:34 | NUR ---
assessment Patient is a 73 year old female who is alert and oriented. Prior to admission patient lived home with family and functioned independently. Per patient she will return home to her prior living arrangements post discharge and family will transport her home. Patient has a cane for home use. Patient feels safe returning home on discharge. Patient is on service with [employer]. Patient will need a resumption order on discharge. I informed patient she has a right to speak to a social work msw regarding all care. I informed patient she has a right to participate in any and all discharge planning. Patient does not have a POA and advanced directive. I have offered patient information on POA and advanced directives. I informed the patient the advantages and benefits of having an Advanced Directive. Patient verbalized understanding and agreed to discharge plan. Addendum: 02/04/20 at 1535 by Dalila ALEXANDER Amended: Links added.
[2020-02-04 16:40] VITALS: BP 102/66
--- NOTE | 2020-02-04 19:20 | NUR ---
Opening Shift Note Assumed care of patient after receiving report. Patient is awake and alert with no S/S of distress/SOB or pain. Call light within reach, bed in lowest locked position x3 bed rails, HOB semi fowlers. Instructed on POC and to call for assist PRN, will continue to monitor for changes Q1hr and PRN.
[2020-02-04 22:00] VITALS: BP 115/67
[2020-02-05] MEDS: MORPHINE SULF INJ 2 MG/ML SYRINGE 1ML IV PRN (00:33)
--- NOTE | 2020-02-05 00:35 | NUR ---
IV insertion IV access obtained, via clean sterile technique by inserting 22 gauge catheter at left hand after 2 attempts. IV secured properly. No trauma to site. Patient tolerated well.
[2020-02-05 05:00] VITALS: BP 101/61
[2020-02-05] MEDS: LEVOTHYROXINE SODIUM 100 MCG TAB PO SCH (05:35)
[2020-02-05] MEDS: GABAPENTIN 100 MG CAP PO SCH ×3 (05:35→21:21)
[2020-02-05 06:30] LABS: Basophils # (auto) 0 10 ^3/uL (0-0.2); Basophils % (auto) 0.3 % (0.0-2.0); Eosinophils # (auto) 0.2 10 ^3/uL (0-0.8); Eosinophils % (auto) 4.2 % (0.0-7.0); Hematocrit 37.9 % (36.0-46.0); Hemoglobin 12.8 g/dL (12.2-16.2); Lymphocytes # (auto) 0.7 10 ^3/uL (0.4-5.4); Lymphocytes % (auto) 13.9 % (10.0-50.0); Mean Corpuscular Hemoglobin 30.2 pg (28.0-32.0); Mean Corpuscular Hgb Conc. 33.7 g/dL (32.0-36.0); Mean Corpuscular Volume 89.4 fL (80.0-100.0); Monocytes # (auto) 0.5 10 ^3/uL (0-1.3); Monocytes % (auto) 10.7 % (0.0-12.0); Neutrophils # (auto) 3.6 10 ^3/uL (1.6-8.6); Neutrophils % (auto) 70.9 % (37.0-80.0); Nucleated Red Blood Cells % 0.1 %; Platelet Count (auto) 205 10^3/uL (140-450); Red Blood Cells 4.23 10^6/uL (4.0-5.20); Red Cell Distribution Width 14.4 % (11.8-14.3); White Blood Cell 5.1 10^3/uL (4.4-10.8)
[2020-02-05 06:46] LABS: Albumin 2.5 g/dL (3.4-5.0); Calcium 8.1 mg/dL (8.5-10.1); Potassium 3.3 mmol/L (3.5-5.1)
[2020-02-05 06:52] LABS: BUN/Creatinine Ratio 9.3; Bilirubin, Total 0.4 mg/dL (0.2-1.0)
[2020-02-05 09:23] VITALS: BP 104/60
[2020-02-05] MEDS: FLORASTOR (S. BOULARDII) 250 MG CAP PO SCH (09:23)
[2020-02-05] MEDS: cefTRIAXone 1GM/50ML D5W 50 ML IV SCH (09:23)
--- NOTE | 2020-02-05 10:00 | NUR ---
MD AWARE OF RIGHT UPPER EXTREMITIES SWELLING, NEW ORDER RECEIVED.
--- NOTE | 2020-02-05 10:23 | NUR ---
Oxygen room air 95-99 %, no respiratory distress noted. Will continue to monitor.
[2020-02-05] MEDS: HYDROcodone-ACET 5/325MG TAB PO PRN ×2 (10:28→21:22)
--- NOTE | 2020-02-05 11:32 | NUR ---
K 3.3 , received new order from Dr. Muller, noted and carried it out.
[2020-02-05] MEDS ORDERED: POTASSIUM CHL 20 Meq TABLET PO ONE ×2 (11:45→15:45)
[2020-02-05 12:43] VITALS: BP 106/52
--- NOTE | 2020-02-05 15:07 | NUR ---
D/C Planning Regarding social service consult for home health service. Faxed clinical information to [facility] and [facility]. Per Jackeline with [facility] will accept patient and will be seen within 24-48hrs upon d/c day. Obtain authorization from [facility] [id number].
[2020-02-05] MEDS ORDERED: FUROSEMIDE 40 MG/4 ML VIAL IV ONE (15:45)
[2020-02-05 16:28] VITALS: BP 107/65
--- NOTE | 2020-02-05 19:45 | NUR ---
Opening Shift Note Assumed care of patient, awake and alert. No S/S of distress/SOB. Fall and safety precautions in place. Instructed on POC and to call for assist PRN, patient verbalized understanding and in agreement. Vicente collection bag hung below level of bladder, tubing is free of kinks/obstructions, and urine is draining to gravity. Call light within reach and able to use. Will continue to monitor for changes Q1hr and PRN.
[2020-02-05 22:19] VITALS: BP 102/54
[2020-02-06] MEDS: MORPHINE SULF INJ 2 MG/ML SYRINGE 1ML IV PRN (05:04)
[2020-02-06] MEDS: LEVOTHYROXINE SODIUM 100 MCG TAB PO SCH (05:04)
[2020-02-06] MEDS: GABAPENTIN 100 MG CAP PO SCH ×3 (05:05→21:55)
[2020-02-06 05:22] VITALS: BP 126/66
[2020-02-06 09:00] VITALS: BP 101/43
[2020-02-06] MEDS: FLORASTOR (S. BOULARDII) 250 MG CAP PO SCH (09:07)
[2020-02-06] MEDS ORDERED: cefTRIAXone 1GM/50ML D5W 50 ML IV ONE (12:00)
--- NOTE | 2020-02-06 12:57 | NUR ---
Nutrition Followup Note Wt 73.4 kg Pt sleeping when rounded this am. Pt is s/p ERCP with lap elisa scheduled for 02/02. pt is currently on clear liq diet with adequate PO of > 75% x 3 per RN doc Est Energy needs: 7640-6822 kcals (20-23 kcal/kgBW), Est Protein needs: 77-85 gms/day (1.0-1.1 gm/kgBW). Will continue to monitor and reassess prn. Labs: CA 8.1 L, ALB 2.5 L FOR today BM: Pt with 1 BM 02/04 per RN note Skin: BS 21 low risk, full details in district manager primary care sales note. PES: Altered nutrition related labs aeb pt with elevated pancreatic enzymes Will continue to monitor NPO status, skin status, pertinent labs and weight trends. Will f/u in 2-3 days. Rec: 1) Gradually advance pt to oral diet when medically feasible and as tolerated 2) Continue current plan of care
[2020-02-06 13:00] VITALS: BP 108/57
[2020-02-06] MEDS ORDERED: LACTULOSE 20Gm/30ML SOLN PO PRN (13:00)
--- NOTE | 2020-02-06 13:00 | NUR ---
IV insertion IV access obtained, via clean sterile technique by inserting 22 gauge catheter at after attempt(s). IV secured properly. No trauma to site. Patient tolerated procedure well.
[2020-02-06] MEDS: metroNIDAZOLE 500MG/100ML 100 ML IV SCH ×2 (14:19→21:54)
--- NOTE | 2020-02-06 15:45 | NUR ---
Patient has BM.
[2020-02-06 17:00] VITALS: BP 84/46
[2020-02-06 17:37] VITALS: BP 113/66
--- NOTE | 2020-02-06 19:40 | NUR ---
Opening Shift Note Assumed care of patient, awake and alert. No S/S of distress/SOB. Fall and safety precautions in place. Instructed on POC and to call for assist PRN, patient verbalized understanding and in agreement. Call light within reach and able to use. Will continue to monitor for changes Q1hr and PRN.
[2020-02-06 22:00] VITALS: BP 97/54
[2020-02-07 05:00] VITALS: BP 109/60
[2020-02-07] MEDS: metroNIDAZOLE 500MG/100ML 100 ML IV SCH ×3 (05:05→21:03)
[2020-02-07] MEDS: GABAPENTIN 100 MG CAP PO SCH ×3 (05:05→21:05)
--- NOTE | 2020-02-07 06:00 | NUR ---
WOUND CARE EDUCATED PATIENT ON INDICATION FOR WOUND CARE, PATIENT VERBALIZED UNDERSTANDING AND IN AGREEMENT. PER MD ORDER AND MAINSPRING REVERSE WINDER RECOMMENDATION, WOUND CARE PERFORMED AT THIS TIME. PATIENT TOLERATED WELL. WILL CONTINUE TO MONITOR.
[2020-02-07 06:30] LABS: Albumin 2.5 g/dL (3.4-5.0); BUN/Creatinine Ratio 11.1; Calcium 8.5 mg/dL (8.5-10.1); Potassium 3.2 mmol/L (3.5-5.1)
[2020-02-07 06:32] LABS: Bilirubin, Total 0.4 mg/dL (0.2-1.0)
--- NOTE | 2020-02-07 07:27 | NUR ---
Opening Shift Note Assumed care of patient, awake and alert. No S/S of distress/SOB or pain. Incision to abdomen , dry and intact, no drainage noted. Instructed on POC and to call for assist PRN, will continue to monitor for changes Q1hr and PRN.
[2020-02-07 09:00] VITALS: BP 113/67
[2020-02-07] MEDS ORDERED: POTASSIUM CHL 20 Meq TABLET PO ONE (09:00)
--- NOTE | 2020-02-07 09:00 | NUR ---
IV insertion IV access obtained, via clean sterile technique by inserting 22 gauge catheter at [right hand] after [1] attempt(s). IV secured properly. No trauma to site. Patient tolerated procedure well.
[2020-02-07] MEDS: cefTRIAXone 1GM/50ML D5W 50 ML IV SCH (09:04)
[2020-02-07] MEDS: FLORASTOR (S. BOULARDII) 250 MG CAP PO SCH (09:04)
[2020-02-07 13:00] VITALS: BP 99/60
[2020-02-07 16:58] VITALS: BP 120/72
--- NOTE | 2020-02-07 19:35 | NUR ---
Opening Shift Note Assumed care of patient, awake and alert. Fall and safety precautions in place. No S/S of distress/SOB. Instructed on POC and to call for assist PRN, patient verbalized understanding and in agreement. Vicente intact, securement device in place, tubing free of kinks/obstructions, and collection bag hung below level of bladder. Call light within reach and able to use. will continue to monitor for changes Q1hr and PRN.
[2020-02-07 22:00] VITALS: BP 130/71
--- NOTE | 2020-02-07 22:00 | NUR ---
PAIN PATIENT REPORTS 10/10 PAIN USING ADULT SCALE TO RIGHT LOWER LEG AROUND WOUND AREA. PAIN METHODS DISCUSSED WITH PATIENT, PATIENT VERBALIZED UNDERSTANDING AND IN AGREEMENT WITH DISTRACTION/RELAXATION TECHNIQUES. PATIENT OFFERED MEDICATION FOR PAIN RELIEF IN ADDITION, PATIENT STATES SHE DO NOT WANT MEDICATION FOR PAIN RELIEF AT THIS TIME. PATIENT INFORMED TO NOTIFY THIS RN OF ANY CHANGES, PATIENT IN AGREEMENT. WILL CONTINUE TO MONITOR.
[2020-02-08 05:00] VITALS: BP 120/69
[2020-02-08] MEDS: GABAPENTIN 100 MG CAP PO SCH ×2 (05:24→14:57)
[2020-02-08] MEDS: metroNIDAZOLE 500MG/100ML 100 ML IV SCH (05:24)
--- NOTE | 2020-02-08 08:00 | NUR ---
Opening Shift Note Assumed care of patient, awake and alert. No S/S of distress/SOB or pain. Vicente catheter draining to gravity. Call light within reach. Bed alarm on. Instructed on POC and to call for assist PRN, will continue to monitor for changes Q1hr and PRN.
[2020-02-08] MEDS: FLORASTOR (S. BOULARDII) 250 MG CAP PO SCH (09:13)
[2020-02-08] MEDS: cefTRIAXone 1GM/50ML D5W 50 ML IV SCH (09:14)
[2020-02-08 12:43] VITALS: BP 113/72
[2020-02-08] MEDS ORDERED: MET500T PO (14:20)
[2020-02-08] MEDS ORDERED: CIP500T PO (14:20)
[2020-02-08 15:57] VITALS: BP 113/72
--- NOTE | 2020-02-08 16:35 | NUR ---
Called and spoke to Dalila Bach / bilingual social worker, as per bilingual social worker pt has [facility] home health arrange and it is ok to d/c pt.
[2020-02-08 16:55] VITALS: BP 113/66
--- NOTE | 2020-02-08 17:00 | NUR ---
Discharge instructions given as ordered. Encourage to follow up with PMD, GI, urologist, and surgeon as instructed. All questions and concerns addressed. Patient and pt's daughter Danii verbalized understanding. Medication reconciliation form completed and copy given to patient. No home medications held in Pharmacy, and no needed vaccines to be given. IV removed with catheter intact, pressure dressing applied, pt discharged with gutierrez catheter, pt and granddaughter Ashtyn educated on how to emptied the gutierrez . Telemetry unit returned to ICU.
--- NOTE | 2020-02-08 17:30 | NUR ---
Patient taken to vehicle via wheelchair with all personal belongings, accompanied by staff member, pt's granddaughter awaiting for pt outside. No distress noted at time of departure.
[2020-02-08] MEDS ORDERED: CIPROFLOXACIN HCL 500 MG TAB PO SCH (22:00)
[2020-02-08] MEDS ORDERED: metroNIDAZOLE 500 MG TAB PO SCH (22:00)
== END 2020-02-08 17:30 | disposition home health service (06) | DRG 417 ==
LOC: ER 13:50 → TELE 13:51 → TELE-WESTW 21:41
PROVIDERS: ADMIT Hospitalist; ATTEND Internal Medicine Nephrology
PROC: 0FC98ZZ Extirpation of Matter from Common Bile Duct, Via Natural or Artificial Opening Endoscopic (ICD-10-PCS; 2020-01-31)
PROC: BF101ZZ Fluoroscopy of Bile Ducts using Low Osmolar Contrast (ICD-10-PCS; 2020-01-31)
PROC: 0F798ZZ Dilation of Common Bile Duct, Via Natural or Artificial Opening Endoscopic (ICD-10-PCS; principal; 2020-01-31 07:35)
PROC: 0FT44ZZ Resection of Gallbladder, Percutaneous Endoscopic Approach (ICD-10-PCS; 2020-02-03)
DX: K80.65 Calculus of gallbladder and bile duct with chronic cholecystitis with obstruction (principal); K85.90 Acute pancreatitis without necrosis or infection, unspecified; K57.32 Diverticulitis of large intestine without perforation or abscess without bleeding; N10 Acute pyelonephritis; R78.81 Bacteremia; E44.0 Moderate protein-calorie malnutrition; E87.6 Hypokalemia; E03.9 Hypothyroidism, unspecified; E66.9 Obesity, unspecified; I45.10 Unspecified right bundle-branch block; R53.81 Other malaise; N81.10 Cystocele, unspecified; R00.1 Bradycardia, unspecified; Z68.27 Body mass index [BMI] 27.0-27.9, adult; Z83.3 Family history of diabetes mellitus; Z82.49 Family history of ischemic heart disease and other diseases of the circulatory system; Z03.818 Encounter for observation for suspected exposure to other biological agents ruled out; Z88.5 Allergy status to narcotic agent; Z98.51 Tubal ligation status
CPT/HCPCS: 36415; 71045; 74018; 74176; 74181; 76000; 76705; 80048; 80053; 80061; 80307; 81001; 82150; 82247; 82248; 82962; 83036; 83690; 83735; 84100; 84132; 84439; 84443; 84484; 84702; 85025; 85610; 85730; 86850; 86900; 86901; 87040; 87086; 93005; 93971; 97116; 97163; 97530; G0378; J0330; J0690; J0696; J2250; J2405; J2704; J3480; J3490; J7042

== ENCOUNTER → 2020-02-11 | Emergency (ER) | payer OTHER, MEDICAID ==
[~2020-02-11] VITALS: Ht 165.1 cm; Wt 63.5 kg
[~2020-02-11] MED LIST changes: +CIP500T PO; -CLIN300C8 PO; +HYDROcodone-ACET 5/325MG TAB PO ONE; -LEVO25TA6; +MET500T PO; +ONDANSETRON HCL 4 MG/2 ML VIAL IV ONE; +ONDANSETRON ODT 4 MG TAB PO ONE; -SACC250C PO; +SODIUM CHLORIDE 0.9% 1,000 ML IVB ONE; +cefTRIAXone 1GM/50ML D5W 50 ML IV ONE
[2020-02-11 21:47] LABS: Basophils # (auto) 0 10 ^3/uL (0-0.2); Basophils % (auto) 0.8 % (0.0-2.0); Eosinophils # (auto) 0.2 10 ^3/uL (0-0.8); Eosinophils % (auto) 2.9 % (0.0-7.0); Hematocrit 38.3 % (36.0-46.0); Hemoglobin 12.8 g/dL (12.2-16.2); Lymphocytes # (auto) 1.2 10 ^3/uL (0.4-5.4); Lymphocytes % (auto) 20.9 % (10.0-50.0); Mean Corpuscular Hemoglobin 30.2 pg (28.0-32.0); Mean Corpuscular Hgb Conc. 33.6 g/dL (32.0-36.0); Monocytes # (auto) 0.6 10 ^3/uL (0-1.3); Neutrophils # (auto) 3.7 10 ^3/uL (1.6-8.6); Neutrophils % (auto) 65.4 % (37.0-80.0); Nucleated Red Blood Cells % 0.1 %; Platelet Count (auto) 206 10^3/uL (140-450); Red Blood Cells 4.25 10^6/uL (4.0-5.20); Red Cell Distribution Width 14.9 % (11.8-14.3); White Blood Cell 5.7 10^3/uL (4.4-10.8)
[2020-02-11 22:03] LABS: INR 1.03 (0.9-1.15); Partial Thromboplastin Time 25.6 sec (23.0-31.2)
[2020-02-11 22:04] LABS: Albumin 3.5 g/dL (3.4-5.0); Calcium 8.8 mg/dL (8.5-10.1); Potassium 3.2 mmol/L (3.5-5.1)
[2020-02-11 22:08] LABS: Bilirubin, Total 0.8 mg/dL (0.2-1.0); Total Protein 7.2 g/dL (6.4-8.2)
[2020-02-12 02:59] LABS: Urine Bacteria NONE SEEN /hpf (None Seen); Urine Blood 3+ /uL (Negative); Urine Mucus FEW (None Seen); Urine Specific Gravity 1.016 (1.001-1.035); Urine WBC 176 /hpf (0 - 5)
[2020-02-12 06:17] VITALS: BP 117/78
== END | disposition home or self-care (01) ==
LOC: ER 18:50
DX: N39.0 Urinary tract infection, site not specified (principal); E07.9 Disorder of thyroid, unspecified; Z90.49 Acquired absence of other specified parts of digestive tract; Z88.5 Allergy status to narcotic agent
CPT/HCPCS: 36415; 71045; 74176; 80053; 81001; 82150; 83605; 83690; 83735; 85025; 85610; 85730; 87040; 87086; 96361; 96365; 99285; J7030; 87088; J0696; Q0162

== ENCOUNTER 2020-03-28 12:42 | Emergency (ER) | payer OTHER, MEDICAID ==
[~2020-03-28] VITALS: Ht 165.1 cm; Wt 63.5 kg
[~2020-03-28 12:42] MED LIST changes: -HYDROcodone-ACET 5/325MG TAB PO ONE; -ONDANSETRON HCL 4 MG/2 ML VIAL IV ONE; -ONDANSETRON ODT 4 MG TAB PO ONE; -SODIUM CHLORIDE 0.9% 1,000 ML IVB ONE; -cefTRIAXone 1GM/50ML D5W 50 ML IV ONE
[2020-03-28 13:55] LABS: Basophils # (auto) 0 10 ^3/uL (0-0.2); Basophils % (auto) 0.6 % (0.0-2.0); Eosinophils # (auto) 0.1 10 ^3/uL (0-0.8); Eosinophils % (auto) 1.5 % (0.0-7.0); Hematocrit 39.9 % (36.0-46.0); Hemoglobin 13.6 g/dL (12.2-16.2); Lymphocytes # (auto) 1.4 10 ^3/uL (0.4-5.4); Lymphocytes % (auto) 30.4 % (10.0-50.0); Mean Corpuscular Hemoglobin 30.7 pg (28.0-32.0); Mean Corpuscular Volume 90.3 fL (80.0-100.0); Monocytes # (auto) 0.4 10 ^3/uL (0-1.3); Monocytes % (auto) 7.8 % (0.0-12.0); Neutrophils # (auto) 2.8 10 ^3/uL (1.6-8.6); Neutrophils % (auto) 59.7 % (37.0-80.0); Nucleated Red Blood Cells % 0.1 %; Platelet Count (auto) 211 10^3/uL (140-450); Red Blood Cells 4.42 10^6/uL (4.0-5.20); Red Cell Distribution Width 15.6 % (11.8-14.3); White Blood Cell 4.6 10^3/uL (4.4-10.8)
[2020-03-28 14:20] LABS: Albumin 3.5 g/dL (3.4-5.0); Anion Gap 5 (5-15); Blood Urea Nitrogen 15 mg/dL (7-18); Calcium 8.7 mg/dL (8.5-10.1); Carbon Dioxide 28 mmol/L (21-32); Chloride 107 mmol/L (98-107); Glucose 91 mg/dL (74-106); Potassium 3.9 mmol/L (3.5-5.1); Sodium 140 mmol/L (136-145)
[2020-03-28 14:27] LABS: Alanine Aminotransferase 25 U/L (13-56); Alkaline Phosphatase 88 U/L (45-117); Aspartate Aminotransferase 31 U/L (15-37); BUN/Creatinine Ratio 22.1; Bilirubin, Total 0.6 mg/dL (0.2-1.0); GFR African American 109 mL/min; GFR Non-African American 90 mL/min; Total Protein 7.2 g/dL (6.4-8.2)
[2020-03-28 15:39] VITALS: BP 110/62
== END 2020-03-28 15:48 | disposition home or self-care (01) ==
LOC: ER 12:42
DX: S40.012A Contusion of left shoulder, initial encounter (principal); S09.8XXA Other specified injuries of head, initial encounter; Z88.6 Allergy status to analgesic agent; W18.39XA Other fall on same level, initial encounter; Y93.89 Activity, other specified; Y92.89 Other specified places as the place of occurrence of the external cause; Y99.8 Other external cause status
CPT/HCPCS: 36415; 70450; 73030; 80053; 84484; 85025; 93005

== ENCOUNTER → 2021-10-11 | Outpatient (CLI) | payer OTHER, MEDICAID | END | disposition home or self-care (01) | LOC: Rad HDHVI 11:46 | PROVIDERS: ATTEND Internal Medicine | DX: R91.8 Other nonspecific abnormal finding of lung field (principal); R06.02 Shortness of breath | CPT/HCPCS: 71046 ==

== ENCOUNTER 2022-01-02 14:43 | Emergency (ER) | payer OTHER, MEDICAID ==
[~2022-01-02] VITALS: Ht 162.6 cm; Wt 130.0 kg
[2022-01-02 14:43] VITALS: BP 127/67
[2022-01-02 16:15] LABS: Basophils # (auto) 0 10 ^3/uL (0-0.2); Basophils % (auto) 0.8 % (0.0-2.0); Eosinophils # (auto) 0.1 10 ^3/uL (0-0.8); Eosinophils % (auto) 2.5 % (0.0-7.0); Hematocrit 37.9 % (36.0-46.0); Hemoglobin 12.5 g/dL (12.2-16.2); Lymphocytes # (auto) 1.2 10 ^3/uL (0.4-5.4); Lymphocytes % (auto) 33.9 % (10.0-50.0); Mean Corpuscular Hemoglobin 29.7 pg (28.0-32.0); Mean Corpuscular Hgb Conc. 32.8 g/dL (32.0-36.0); Mean Corpuscular Volume 90.5 fL (80.0-100.0); Monocytes # (auto) 0.3 10 ^3/uL (0-1.3); Monocytes % (auto) 9.1 % (0.0-12.0); Neutrophils # (auto) 1.8 10 ^3/uL (1.6-8.6); Neutrophils % (auto) 53.7 % (37.0-80.0); Red Blood Cells 4.19 10^6/uL (4.0-5.20); Red Cell Distribution Width 15.1 % (11.8-14.3); White Blood Cell 3.4 10^3/uL (4.4-10.8)
[2022-01-02] MEDS ORDERED: NAPROXEN 500 MG TAB PO ONE (16:15)
[2022-01-02] MEDS ORDERED: LIDOCAINE 5% TOPICAL PATCH TOP ONE (16:15)
[2022-01-02 16:33] LABS: Albumin 3.3 g/dL (3.4-5.0); Calcium 8.3 mg/dL (8.5-10.1); Potassium 3.4 mmol/L (3.5-5.1)
[2022-01-02 16:35] LABS: BUN/Creatinine Ratio 18.1
[2022-01-02 16:38] LABS: Bilirubin, Total 0.7 mg/dL (0.2-1.0); Total Protein 6.8 g/dL (6.4-8.2)
[2022-01-02] MEDS ORDERED: POTASSIUM EFFERVESENT TAB 25 MEQ PO ONE (17:45)
== END 2022-01-03 03:24 | disposition left against medical advice (07) ==
LOC: ER 14:43
DX: M25.512 Pain in left shoulder (principal); E03.9 Hypothyroidism, unspecified; Z90.49 Acquired absence of other specified parts of digestive tract; Z79.2 Long term (current) use of antibiotics; Z79.899 Other long term (current) drug therapy; Z88.5 Allergy status to narcotic agent
CPT/HCPCS: 36415; 71045; 73030; 80053; 84484; 85025; 93005

== ENCOUNTER 2023-04-08 08:42 | Day surgery (SDC) | payer OTHER, MEDICAID ==
[2023-04-04 11:45] LABS: Basophils # (auto) 0 10 ^3/uL (0-0.2); Basophils % (auto) 0.5 % (0.0-2.0); Eosinophils # (auto) 0.1 10 ^3/uL (0-0.8); Eosinophils % (auto) 1.5 % (0.0-7.0); Hematocrit 42.2 % (36.0-46.0); Hemoglobin 14.1 g/dL (12.2-16.2); Lymphocytes # (auto) 1.3 10 ^3/uL (0.4-5.4); Lymphocytes % (auto) 34.6 % (10.0-50.0); Mean Corpuscular Hemoglobin 30.4 pg (28.0-32.0); Mean Corpuscular Hgb Conc. 33.4 g/dL (32.0-36.0); Mean Corpuscular Volume 90.8 fL (80.0-100.0); Monocytes # (auto) 0.3 10 ^3/uL (0-1.3); Monocytes % (auto) 8.5 % (0.0-12.0); Neutrophils # (auto) 2.1 10 ^3/uL (1.6-8.6); Neutrophils % (auto) 54.9 % (37.0-80.0); Red Blood Cells 4.64 10^6/uL (4.0-5.20); White Blood Cell 3.8 10^3/uL (4.4-10.8)
[2023-04-04 12:05] LABS: INR 1.01 (0.9-1.15); Partial Thromboplastin Time 27.3 SEC (24.5-34.5); Prothrombin Time 10.6 sec (9.3-11.8)
[2023-04-04 12:37] LABS: Alanine Aminotransferase 11 U/L (7-40); Albumin 4.3 g/dL (3.2-4.8); Alkaline Phosphatase 74 U/L (46-116); Anion Gap 6 (5-15); Aspartate Aminotransferase 15 U/L (13-40); BUN/Creatinine Ratio 15.2 (10.0-20.0); Blood Urea Nitrogen 12 mg/dL (9-23); Calcium 9.2 mg/dL (8.5-10.1); Carbon Dioxide 31 mmol/L (20-30); Chloride 105 mmol/L (98-107); Glucose 82 mg/dL (74-106); Potassium 4.2 mmol/L (3.5-5.1); Sodium 142 mmol/L (136-145)
[2023-04-04 12:38] LABS: Bilirubin, Total 0.9 mg/dL (0.2-1.0); Total Protein 7.2 g/dL (5.7-8.2)
[2023-04-05 14:28] LABS: Urine Bacteria NONE SEEN /hpf (None Seen); Urine Blood 1+ /uL (Negative); Urine Clarity HAZY (Clear); Urine Color Yellow (Yellow); Urine Mucus FEW (None Seen); Urine Protein, UAD TRACE (Negative); Urine Specific Gravity 1.025 (1.001-1.035); Urine Urobilinogen Normal (Negative); Urine WBC 5 /hpf (0 - 5); Urine pH 5.5 (5.0-8.0)
[~2023-04-08] VITALS: Ht 160 cm; Wt 65.8 kg
[~2023-04-08 08:42] MED LIST changes: -CIP500T PO; -LEVO100T8 PO; +LEVO75TA6 PO; +MEMA1TAB5 PO; -MET500T PO; +RIVA1CAP PO
[2023-04-08] MEDS ORDERED: ceFAZolin 1GM/50ML 100 ML IV ONE (08:58)
[2023-04-08] MEDS ORDERED: MIDAZOLAM HCL 2MG/2ML 2ml VIAL (1mg/ml) ONE (09:19)
[2023-04-08] MEDS ORDERED: MEPERIDINE HCL (25 MG/ML) 1ML VIAL ONE (09:19)
[2023-04-08] MEDS ORDERED: fentaNYL CITRATE 100 MCG/2 ML VL ONE (09:19)
[2023-04-08] MEDS ORDERED: PROPOFOL 10 MG/ML 20 ML IV ONE (09:20)
[2023-04-08] MEDS ORDERED: DexAMETHasone SOD PHOS 10MG/1ML VIAL INJ ONE (09:20)
[2023-04-08] MEDS ORDERED: ONDANSETRON HCL 4 MG/2 ML VIAL ONE (09:20)
[2023-04-08] MEDS ORDERED: SODIUM CHLORIDE LOCK 10 ML ONE (09:20)
[2023-04-08] MEDS ORDERED: BUPIVACAINE HCL 0.25% P/F 10 ML VIAL ONE (11:18)
[2023-04-08] MEDS ORDERED: MORPHINE SULFATE INJ 2 MG/ml SYRG IV PRN (11:30)
[2023-04-08] MEDS ORDERED: HYDROmorphone HCL 2 MG/ML VL/or syr IV PRN ×2 (11:30)
[2023-04-08] MEDS ORDERED: METOCLOPRAMIDE HCL 5MG/ml INJ 2ml VIAL IV PRN (11:30)
[2023-04-08] MEDS ORDERED: LACTATED RINGER'S 1,000 ML IV SCH (11:45)
[2023-04-08] MEDS ORDERED: ONDANSETRON HCL 4 MG/2 ML VIAL IV PRN (11:45)
[2023-04-08] MEDS ORDERED: CONJ ESTROGENS 0.625MG/GM VAG CRM 30GM PV ONE (12:02)
[2023-04-08] MEDS ORDERED: KETOROLAC TROMETH 60MG/2ML VIAL ONE (12:44)
[2023-04-08 12:57] VITALS: PULSE 74; RESP 13; TEMP 96.8; O2SAT 94
[2023-04-08 13:56] VITALS: BP 104/73; PULSE 65; RESP 14; O2SAT 94
== END 2023-04-08 14:15 | disposition home or self-care (01) ==
LOC: SUR 08:42
PROVIDERS: ATTEND Obstetrics & Gynecology
DX: N81.6 Rectocele (principal); N81.5 Vaginal enterocele; N81.10 Cystocele, unspecified; L83 Acanthosis nigricans; Z98.51 Tubal ligation status; Z98.890 Other specified postprocedural states
CPT/HCPCS: 36415; 45560; 57135; 57282; 80053; 81001; 85025; 85610; 85730; 86850; 86900; 86901; 87086; 88307; J0690; J1100; J1885; J2175; J2250; J2405; J2704; J3010; J3490

== ENCOUNTER 2023-05-24 13:28 | Inpatient (IN) | payer OTHER, MEDICAID ==
[~2023-05-24] VITALS: Ht 157.5 cm; Wt 65.0 kg
[2023-05-24] MEDS ORDERED: SODIUM CHLORIDE 0.9% 1,000 ML IV ONE ×3 (14:30→21:15)
[2023-05-24] MEDS ORDERED: ACETAMINOPHEN 500 MG TAB PO ONE (14:30)
[2023-05-24 14:37] VITALS: PULSE 68; RESP 10; O2SAT 98
[2023-05-24 15:40] LABS: Hematocrit 39.4 % (36.0-46.0); Hemoglobin 12.9 g/dL (12.2-16.2); Mean Corpuscular Hemoglobin 30.3 pg (28.0-32.0); Mean Corpuscular Hgb Conc. 32.9 g/dL (32.0-36.0); Mean Corpuscular Volume 92.1 fL (80.0-100.0); Red Blood Cells 4.28 10^6/uL (4.0-5.20); Red Cell Distribution Width 14.8 % (11.8-14.3); White Blood Cell 4.1 10^3/uL (4.4-10.8)
[2023-05-24 15:45] LABS: Alanine Aminotransferase 13 U/L (7-40); Albumin 3.5 g/dL (3.2-4.8); Alkaline Phosphatase 77 U/L (46-116); Anion Gap 6 (5-15); Aspartate Aminotransferase 26 U/L (13-40); BUN/Creatinine Ratio 13.8 (10.0-20.0); Bilirubin, Total 0.8 mg/dL (0.2-1.0); Blood Urea Nitrogen 11 mg/dL (9-23); Calcium 8.3 mg/dL (8.7-10.4); Carbon Dioxide 26 mmol/L (20-30); Chloride 110 mmol/L (98-107); Glucose 107 mg/dL (74-106); Lipase 35 U/L (12-53); Potassium 3.8 mmol/L (3.5-5.1); Sodium 142 mmol/L (136-145); Total Protein 6.4 g/dL (5.7-8.2)
[2023-05-24 15:48] LABS: Basophils % (manual) 0 (0.0-2.0); Eosinophils % (manual) 0 (0-7); Metamyelocytes % 0
[2023-05-24 15:49] LABS: Blast Cells 0; Myelocytes % 0; Promyelocytes % 0; Reactive Lymphocytes 0
[2023-05-24 16:38] LABS: Band Neutrophils % (manual) 5; Lymphocytes % (manual) 13 (10.0-50.0); Monocytes % (manual) 2 (0-12); Platelet Estimate Adequate
[2023-05-24] MEDS ORDERED: FLEET ENEMA(ADULT) 135 ML PR ONE (18:15)
[2023-05-24] MEDS ORDERED: LACTULOSE 20Gm/30ML SOLN PO ONE (18:15)
[2023-05-24 19:35] VITALS: PULSE 60; RESP 12; O2SAT 98
[2023-05-24] MEDS ORDERED: NOREPINEPHRINE 8 MG/250ML KIT 250 ML IV SCH (23:15)
[2023-05-25] MEDS ORDERED: AZITHROMYCIN 500MG/ 250ML 250 ML IV ONE (01:15)
[2023-05-25 02:25] LABS: Urine Bacteria NONE SEEN /hpf (None Seen); Urine Blood TRACE /uL (Negative); Urine Clarity HAZY (Clear); Urine Color Yellow (Yellow); Urine Protein, UAD TRACE (Negative); Urine Specific Gravity 1.023 (1.001-1.035); Urine Urobilinogen Normal (Negative); Urine WBC 101 /hpf (0 - 5); Urine pH 5.5 (5.0-8.0)
[2023-05-25] MEDS ORDERED: DOCUSATE SOD 100 MG CAP PO PRN (03:00)
[2023-05-25] MEDS ORDERED: ACETAMINOPHEN 325 MG TAB PO PRN (03:00)
[2023-05-25] MEDS ORDERED: ONDANSETRON HCL 4 MG/2 ML VIAL IV PRN (03:00)
[2023-05-25] MEDS ORDERED: MORPHINE SULFATE INJ 2 MG/ml SYRG IV PRN (03:00)
[2023-05-25] MEDS ORDERED: NITROGLYCERIN 0.4 MG SL TAB SL PRN (03:00)
[2023-05-25 03:30] VITALS: PULSE 54; RESP 13; O2SAT 97
[2023-05-25] MEDS: SODIUM CHLOR 0.9% PF (SALINE LOCK) 10ML VIAL/SYR IV SCH ×3 (06:00→22:00)
[2023-05-25] MEDS ORDERED: LEVOTHYROXINE SODIUM 25 MCG TAB PO SCH (07:00)
[2023-05-25 07:16] LABS: Basophils # (auto) 0 10 ^3/uL (0-0.2); Basophils % (auto) 0.2 % (0.0-2.0); Eosinophils # (auto) 0 10 ^3/uL (0-0.8); Eosinophils % (auto) 0.6 % (0.0-7.0); Hematocrit 36.5 % (36.0-46.0); Hemoglobin 12.2 g/dL (12.2-16.2); Lymphocytes % (auto) 11.2 % (10.0-50.0); Mean Corpuscular Hemoglobin 30.2 pg (28.0-32.0); Mean Corpuscular Hgb Conc. 33.4 g/dL (32.0-36.0); Mean Corpuscular Volume 90.6 fL (80.0-100.0); Monocytes # (auto) 0.5 10 ^3/uL (0-1.3); Monocytes % (auto) 5.8 % (0.0-12.0); Neutrophils % (auto) 82.2 % (37.0-80.0); Red Blood Cells 4.03 10^6/uL (4.0-5.20); Red Cell Distribution Width 14.7 % (11.8-14.3); White Blood Cell 8.5 10^3/uL (4.4-10.8)
[2023-05-25 07:53] LABS: Alanine Aminotransferase 18 U/L (7-40); Albumin 3.5 g/dL (3.2-4.8); Alkaline Phosphatase 75 U/L (46-116); Anion Gap 7 (5-15); Aspartate Aminotransferase 30 U/L (13-40); BUN/Creatinine Ratio 13.9 (10.0-20.0); Bilirubin, Total 0.7 mg/dL (0.2-1.0); Blood Urea Nitrogen 10 mg/dL (9-23); Calcium 8.4 mg/dL (8.5-10.1); Carbon Dioxide 26 mmol/L (20-30); Chloride 110 mmol/L (98-107); Glucose 92 mg/dL (74-106); Potassium 3.5 mmol/L (3.5-5.1); Sodium 143 mmol/L (136-145); Total Protein 5.8 g/dL (5.7-8.2)
[2023-05-25 08:05] VITALS: PULSE 63; RESP 11; O2SAT 96
[2023-05-25] MEDS: cefTRIAXone 1GM/50ML D5W 50 ML IV SCH (09:48)
[2023-05-25] MEDS ORDERED: LEVOTHYROXINE SODIUM 100 MCG/5 ML INJ IV ONE (13:00)
[2023-05-25] MEDS ORDERED: SODIUM CHLORIDE 0.9% 1,000 ML IV ONE (13:15)
[2023-05-25 19:45] VITALS: PULSE 63; RESP 14; O2SAT 97
[2023-05-26] VITALS (9 sets, daily range): BP systolic 98–133; BP diastolic 50–74; PULSE 49–79; RESP 16–18; TEMP 97.7–98.7; O2SAT 92–98
[2023-05-26] MEDS ORDERED: QUET1TAB11 PO (00:50)
[2023-05-26 05:25] LABS: Basophils # (auto) 0 10 ^3/uL (0-0.2); Basophils % (auto) 0.3 % (0.0-2.0); Eosinophils # (auto) 0 10 ^3/uL (0-0.8); Eosinophils % (auto) 0.8 % (0.0-7.0); Hematocrit 38.7 % (36.0-46.0); Hemoglobin 12.8 g/dL (12.2-16.2); Lymphocytes # (auto) 1.4 10 ^3/uL (0.4-5.4); Lymphocytes % (auto) 25.4 % (10.0-50.0); Mean Corpuscular Hemoglobin 29.8 pg (28.0-32.0); Mean Corpuscular Volume 90.4 fL (80.0-100.0); Monocytes # (auto) 0.3 10 ^3/uL (0-1.3); Monocytes % (auto) 5.7 % (0.0-12.0); Neutrophils # (auto) 3.8 10 ^3/uL (1.6-8.6); Neutrophils % (auto) 67.8 % (37.0-80.0); Nucleated Red Blood Cells % 0.2 %; Red Blood Cells 4.29 10^6/uL (4.0-5.20); Red Cell Distribution Width 14.5 % (11.8-14.3); White Blood Cell 5.6 10^3/uL (4.4-10.8)
[2023-05-26 05:50] LABS: Alanine Aminotransferase 17 U/L (7-40); Albumin 3.7 g/dL (3.2-4.8); Alkaline Phosphatase 82 U/L (46-116); Aspartate Aminotransferase 27 U/L (13-40); BUN/Creatinine Ratio 13.9 (10.0-20.0); Blood Urea Nitrogen 10 mg/dL (9-23); Chloride 108 mmol/L (98-107); Glucose 86 mg/dL (74-106); Potassium 3.5 mmol/L (3.5-5.1); Sodium 141 mmol/L (136-145)
[2023-05-26 05:51] LABS: Anion Gap 11 (5-15); Bilirubin, Total 0.5 mg/dL (0.2-1.0); Carbon Dioxide 22 mmol/L (20-30); Total Protein 6.3 g/dL (5.7-8.2)
[2023-05-26] MEDS ORDERED: HALOPERIDOL LACTATE 5 MG/ML INJ VIAL IM PRN (06:00)
[2023-05-26] MEDS: SODIUM CHLOR 0.9% PF (SALINE LOCK) 10ML VIAL/SYR IV SCH ×3 (06:25→22:00)
[2023-05-26] MEDS: LEVOTHYROXINE SODIUM 112 MCG TAB PO SCH (06:54)
[2023-05-26] MEDS: LEVOTHYROXINE SODIUM 25 MCG TAB PO SCH (06:54)
[2023-05-26] MEDS ORDERED: LEVOTHYROXINE SODIUM 25 MCG TAB PO SCH (07:00)
[2023-05-26] MEDS: cefTRIAXone 1GM/50ML D5W 50 ML IV SCH (09:02)
[2023-05-26] MEDS ORDERED: LEVOTHYROXINE SODIUM 100 MCG/5 ML INJ IV SCH (10:00)
[2023-05-26] MEDS ORDERED: VANCOMYCIN 1GM/250ML 250 ML IV ONE (10:30)
[2023-05-26] MEDS ORDERED: VANCOMYCIN PER PHARMACY 0 MG IV SCH (10:30)
[2023-05-26] MEDS ORDERED: POLYETHYLENE GLYCOL 17 GM PWDR PO ONE (10:30)
[2023-05-26] MEDS: MEMANTINE HCL 5 MG TAB PO SCH (19:59)
[2023-05-26] MEDS: QUEtiapine FUMARATE 25 MG TAB PO SCH (20:00)
[2023-05-26] MEDS: RIVASTIGMINE 1.5 MG PO SCH (20:05)
[2023-05-27] VITALS (7 sets, daily range): BP systolic 105–122; BP diastolic 68–80; PULSE 52–98; RESP 14–18; TEMP 36.9; O2SAT 95–96
[2023-05-27] MEDS: LEVOTHYROXINE SODIUM 25 MCG TAB PO SCH (05:06)
[2023-05-27] MEDS: LEVOTHYROXINE SODIUM 112 MCG TAB PO SCH (05:06)
[2023-05-27] MEDS: SODIUM CHLOR 0.9% PF (SALINE LOCK) 10ML VIAL/SYR IV SCH ×2 (05:10→15:05)
[2023-05-27] MEDS: cefTRIAXone 1GM/50ML D5W 50 ML IV SCH (08:52)
[2023-05-27] MEDS: POLYETHYLENE GLYCOL 17 GM PWDR PO SCH (11:12)
[2023-05-27] MEDS: RIVASTIGMINE 1.5 MG PO SCH ×2 (11:13→19:46)
[2023-05-27] MEDS: VANCOMYCIN 1GM/250ML 250 ML IV SCH (11:13)
[2023-05-27] MEDS: MEMANTINE HCL 5 MG TAB PO SCH ×2 (11:13→19:45)
[2023-05-27] MEDS: QUEtiapine FUMARATE 25 MG TAB PO SCH (19:45)
[2023-05-28 05:00] VITALS: BP 96/61; PULSE 53; RESP 16; TEMP 98.2; O2SAT 95
[2023-05-28] MEDS: LEVOTHYROXINE SODIUM 112 MCG TAB PO SCH (06:23)
[2023-05-28] MEDS: LEVOTHYROXINE SODIUM 25 MCG TAB PO SCH (06:23)
[2023-05-28] MEDS: SODIUM CHLOR 0.9% PF (SALINE LOCK) 10ML VIAL/SYR IV SCH ×2 (06:23→06:24)
[2023-05-28 08:00] VITALS: PULSE 51; PULSE 55; RESP 16; O2SAT 95
[2023-05-28] MEDS: cefTRIAXone 1GM/50ML D5W 50 ML IV SCH (08:54)
[2023-05-28 09:00] VITALS: BP 100/48; PULSE 55; RESP 16; TEMP 97.6; O2SAT 95
[2023-05-28] MEDS: POLYETHYLENE GLYCOL 17 GM PWDR PO SCH (09:49)
[2023-05-28] MEDS: VANCOMYCIN 1GM/250ML 250 ML IV SCH (09:49)
[2023-05-28] MEDS: MEMANTINE HCL 5 MG TAB PO SCH (09:49)
[2023-05-28] MEDS: RIVASTIGMINE 1.5 MG PO SCH (09:50)
[2023-05-28] MEDS ORDERED: LEV100T PO (11:22)
[2023-05-28] MEDS ORDERED: CIPR-173 PO (11:22)
[2023-05-28] MEDS ORDERED: LEV50T PO (11:22)
[2023-05-28 12:20] VITALS: BP 100/48; PULSE 55; RESP 16; TEMP 97.6; O2SAT 95
== END 2023-05-28 18:57 | disposition home or self-care (01) | DRG 871 ==
LOC: EDUNIT# 13:28 → EDBD 13:28 → ER 13:28 → TELE 05-25 02:57 → TELE-WESTW 05-25 23:58
PROVIDERS: ADMIT Nurse Practitioner Family; ATTEND Family Medicine
DX: A41.9 Sepsis, unspecified organism (principal); J18.9 Pneumonia, unspecified organism; R65.21 Severe sepsis with septic shock; N12 Tubulo-interstitial nephritis, not specified as acute or chronic; K59.00 Constipation, unspecified; K52.9 Noninfective gastroenteritis and colitis, unspecified; G30.9 Alzheimer's disease, unspecified; E03.9 Hypothyroidism, unspecified; F02.C0 Dementia in other diseases classified elsewhere, severe, without behavioral disturbance, psychotic disturbance, mood disturbance, and anxiety; Z88.5 Allergy status to narcotic agent; Z82.49 Family history of ischemic heart disease and other diseases of the circulatory system; Z83.3 Family history of diabetes mellitus; Z90.49 Acquired absence of other specified parts of digestive tract
CPT/HCPCS: 36415; 71045; 74176; 80053; 81001; 82565; 83605; 83690; 83880; 84443; 84484; 85007; 85025; 85027; 87040; 87077; 87086; 87186; 93005; 96361; 96365; G0378; J0696; J3490

== ENCOUNTER 2024-01-26 12:45 | Inpatient (IN) | payer OTHER, MEDICAID ==
[~2024-01-26] VITALS: Ht 162.6 cm; Wt 55.4 kg
[~2024-01-26 12:45] MED LIST changes: +CIPR-173 PO; +LEVO-848 PO; +LEVO-849 PO; +QUET1TAB11 PO
[2024-01-26] MEDS: SODIUM CHLORIDE 0.9% 1,000 ML IVB ONE (13:34)
[2024-01-26 13:54] LABS: Basophils # (auto) 0 10 ^3/uL (0-0.2); Basophils % (auto) 0.5 % (0.0-2.0); Eosinophils # (auto) 0 10 ^3/uL (0-0.8); Eosinophils % (auto) 0.5 % (0.0-7.0); Hematocrit 40.9 % (36.0-46.0); Hemoglobin 13.6 g/dL (12.2-16.2); Lymphocytes # (auto) 1.2 10 ^3/uL (0.4-5.4); Lymphocytes % (auto) 31.5 % (10.0-50.0); Mean Corpuscular Hemoglobin 30.3 pg (28.0-32.0); Mean Corpuscular Hgb Conc. 33.3 g/dL (32.0-36.0); Mean Corpuscular Volume 90.8 fL (80.0-100.0); Monocytes # (auto) 0.3 10 ^3/uL (0-1.3); Monocytes % (auto) 7.9 % (0.0-12.0); Neutrophils # (auto) 2.3 10 ^3/uL (1.6-8.6); Neutrophils % (auto) 59.6 % (37.0-80.0); Nucleated Red Blood Cells % 0.2 %; Red Cell Distribution Width 15.1 % (11.8-14.3); White Blood Cell 3.9 10^3/uL (4.4-10.8)
[2024-01-26] MEDS ORDERED: NITROGLYCERIN 0.4 MG SL TAB SL PRN (15:30)
[2024-01-26] MEDS ORDERED: MORPHINE SULFATE INJ 2 MG/ml SYRG IV PRN (15:30)
[2024-01-26 15:31] LABS: Alanine Aminotransferase 24 U/L (7-40); Albumin 4.3 g/dL (3.2-4.8); Alkaline Phosphatase 83 U/L (46-116); Anion Gap 6 (5-15); Aspartate Aminotransferase 24 U/L (13-40); BUN/Creatinine Ratio 16.7 (10.0-20.0); Blood Urea Nitrogen 15 mg/dL (9-23); Carbon Dioxide 29 mmol/L (20-30); Chloride 108 mmol/L (98-107); Glucose 120 mg/dL (74-106); Potassium 3.7 mmol/L (3.5-5.1); Sodium 143 mmol/L (136-145)
[2024-01-26 15:32] LABS: Bilirubin, Total 1.1 mg/dL (0.2-1.0); Total Protein 6.5 g/dL (5.7-8.2)
[2024-01-26 16:56] VITALS: PULSE 55; RESP 16; O2SAT 100
[2024-01-26 21:09] VITALS: PULSE 48; RESP 14; O2SAT 96
[2024-01-27 04:15] LABS: Basophils # (auto) 0 10 ^3/uL (0-0.2); Basophils % (auto) 0.4 % (0.0-2.0); Eosinophils # (auto) 0.1 10 ^3/uL (0-0.8); Eosinophils % (auto) 2.4 % (0.0-7.0); Hematocrit 35.5 % (36.0-46.0); Lymphocytes # (auto) 1.4 10 ^3/uL (0.4-5.4); Lymphocytes % (auto) 42.5 % (10.0-50.0); Mean Corpuscular Hemoglobin 30.6 pg (28.0-32.0); Mean Corpuscular Hgb Conc. 33.8 g/dL (32.0-36.0); Mean Corpuscular Volume 90.6 fL (80.0-100.0); Monocytes # (auto) 0.4 10 ^3/uL (0-1.3); Monocytes % (auto) 13.1 % (0.0-12.0); Neutrophils # (auto) 1.4 10 ^3/uL (1.6-8.6); Neutrophils % (auto) 41.6 % (37.0-80.0); Nucleated Red Blood Cells % 0.1 %; Red Blood Cells 3.92 10^6/uL (4.0-5.20); Red Cell Distribution Width 14.6 % (11.8-14.3); White Blood Cell 3.4 10^3/uL (4.4-10.8)
[2024-01-27 04:30] LABS: Alanine Aminotransferase 17 U/L (7-40); Albumin 3.4 g/dL (3.2-4.8); Alkaline Phosphatase 65 U/L (46-116); Anion Gap 7 (5-15); Aspartate Aminotransferase 17 U/L (13-40); BUN/Creatinine Ratio 14.3 (10.0-20.0); Bilirubin, Total 0.9 mg/dL (0.2-1.0); Blood Urea Nitrogen 11 mg/dL (9-23); Calcium 8.7 mg/dL (8.7-10.4); Carbon Dioxide 29 mmol/L (20-30); Chloride 109 mmol/L (98-107); Glucose 94 mg/dL (74-106); Potassium 3.5 mmol/L (3.5-5.1); Sodium 145 mmol/L (136-145); Total Protein 5.6 g/dL (5.7-8.2)
[2024-01-27] MEDS: ACETAMINOPHEN 325 MG TAB PO PRN (04:30)
[2024-01-27 07:25] VITALS: PULSE 42; RESP 15; O2SAT 98
[2024-01-27] MEDS: ENOXAPARIN SOD 40 MG/0.4 ML SYRINGE SC SCH (09:35)
[2024-01-27 12:09] LABS: Amphetamine Screen, Urine Neg (NEGATIVE); Barbiturate Scree,Urine Neg (NEGATIVE); Benzodiazephine Screen, Urine Neg (NEGATIVE); Cocaine Screen, Urine Neg (NEGATIVE); Opiate Scree,Urine Neg (NEGATIVE); Phencyclidine Screen, Urine Neg (NEGATIVE)
[2024-01-27 12:10] LABS: Cannabinoid Screen, Urine Neg (NEGATIVE)
[2024-01-27 12:22] LABS: Urine Bacteria FEW /hpf (None Seen); Urine Blood TRACE /uL (Negative); Urine Color Light-Yellow (Yellow); Urine Protein, UAD Negative (Negative); Urine Specific Gravity 1.016 (1.001-1.035); Urine Urobilinogen Normal (Negative); Urine WBC 49 /hpf (0 - 5)
[2024-01-27 12:34] LABS: Urine Clarity Hazy (Clear)
[2024-01-27 19:25] VITALS: PULSE 51; RESP 18; O2SAT 95
[2024-01-27] MEDS: HALOPERIDOL LACTATE 5 MG/ML INJ VIAL IM ONE (20:17)
[2024-01-28 09:00] VITALS: PULSE 54; RESP 16; O2SAT 95
[2024-01-28 16:12] VITALS: BP 144/57; PULSE 91; RESP 15; TEMP 98; O2SAT 99
== END 2024-01-28 16:51 | disposition home or self-care (01) | DRG 308 ==
LOC: ER 12:45 → TELE 15:31
PROVIDERS: ADMIT Nurse Practitioner Family; ATTEND Nurse Practitioner Acute Care
DX: R00.1 Bradycardia, unspecified (principal); G93.41 Metabolic encephalopathy; F41.9 Anxiety disorder, unspecified; G30.9 Alzheimer's disease, unspecified; E03.9 Hypothyroidism, unspecified; F02.80 Dementia in other diseases classified elsewhere, unspecified severity, without behavioral disturbance, psychotic disturbance, mood disturbance, and anxiety; Z88.5 Allergy status to narcotic agent; Z98.51 Tubal ligation status; Z90.49 Acquired absence of other specified parts of digestive tract; Z90.710 Acquired absence of both cervix and uterus; Z83.3 Family history of diabetes mellitus; Z82.49 Family history of ischemic heart disease and other diseases of the circulatory system
CPT/HCPCS: 36415; 70450; 71045; 80053; 80307; 81001; 82607; 83605; 84443; 84484; 85025; 93005; 93306; 93886; 97163; G0378

== ENCOUNTER 2025-04-06 15:58 | Inpatient (IN) | payer MEDICARE, MEDICAID ==
[~2025-04-06] VITALS: Ht 160 cm; Wt 97.8 kg
[~2025-04-06 15:58] MED LIST changes: +QUET50TA PO
--- NOTE | 2025-04-06 16:54 | ED.PDOC ---
Musculoskeletal HPI Comments Discharge diagnosis from 01/28/24 Syncope with collapse Secondary Diagnosis: -? Symptomatic bradycardia with heart rate dropping into the 30s -recent diarrhea -dementia -hypothyroidism HPI: 79 year old female presents to the ED with a chief complaint of fall injury onset today (04/06/25). Per daughter, patient was getting dressed, standing position, when she experienced a witnessed fall by daughter, landing on her Lt side. Patient is currently experiencing LT thigh pain, pain worsens with movement. Patient has dementia, poor historian. Denies LOC, head injury, nausea, vomiting, diarrhea, headache, dizziness, fever, chills. No other symptoms or mod ifying factors present at this time. Initial Vitals BP: 144/91 HR: 46 RR: 18 O2: 97% Temp: 98.7 F Past Medical History: Alzheimer, anxiety, CHF, dementia, thyroid disease Past Surgical History: BTL, cholecystectomy, hysterectomy Social History: Denies ETOH, smoking, and drug use. Medications: Levothyroxine Allergies: Codeine HPI: Poor Historian. REVIEW OF SYSTEMS: CONSTITUTIONAL: Denies acute: fever, diaphoresis, chills, generalized weakness. HEAD: Denies acute: headache, photophobia Eyes: Denies acute: Double vision, vision loss, eye pain, eye discharge. EARS: Denies acute: tinnitus, hearing loss, ear discharge, ear pain, THROAT: Denies acute: sore throat, swelling, difficulty swallowing , pain with swallowing, change in voice. NECK: Denies acute: neck pain, neck swelling, stiff neck. HEART: Denies acute : chest pain, palpitations, LUNGS: Denies acute: SOB, wheezing, cough, hemoptysis ABDOMEN: Denies acute: abdominal pain, Nausea, Vomiting, diarrhea, melena , hematemesis, hematochezia SKIN: Denies acute: rash, redness, lesions, itchiness. EXTREMITIES: Denies acute: calf pain, numbness, tingling, weakness, Denies acute: Low back pain. Neuro: Denies acute: focal neurological deficit, motor or sensory focal neurological deficit, tremors, seizure like activity, confusion, dizziness, change in mental status, loss of bowel or bladder function, cauda equina like symptoms. : Denies acute: dysuria, hematuria, flank pain, increase in urinary frequency. PSYCH: Denies acute: hallucination, suicidal ideation, homicidal ideation. FEMALE: Denies acute: abnormal vaginal bleeding, foul odor, unusual discharge. PHYSICAL EXAM: General: -----moderate---acute distress, awake and alert. Head: normocephalic, atraumatic. Neck: supple, trachea is midline, no swelling. Throat: Normal phonation. Eyes:, no erythema, no purulent discharge, no proptosis, no icterus. Heart: regular rate, regular rhythm, no significant murmur appreciated. Lungs: no apparent respiratory distress, Able to speak in full sentences. No wheezing, no rhonchi, no crackles. No stridors Clear to auscultation bilaterally. Abdomen: non tender to palpation, non distended, soft, no guarding, no rebound, + bowel sounds. Neuro: Awake, Alert, oriented to name, self, situation, follows commands At baseline per caregivers and family members at bedside. Speech is normal. Skin: no petechia, no purpura, no cyanosis, non-pale, not jaundice. Lower extremities: --no - Pitting edema no deformity, no focal swelling, no calf TTP. Decreased range of motion of left hip secondary to left hip pain. Patient is neurovascularly intact in the affected his left lower extremity. Palpation of the left knee does not produce any pain. Normal range of motion of the left knee. Makes eye contact. moves all four extremities. Face: no apparent facial droop. Pedal pulses are palpable. No nuchal rigidity, Kernig's sign, Brudzinski's sign, no meningeal signs. ED COURSE: DISCLAIMER: This medical document was created using an electronic medical record system with voice recognition software and computerized dictation system. Although this document has been carefully reviewed, there might still be some phonetic and typographical errors. Occasional wrong-word or "sound-alike" substitutions may have occurred due to the inherent limitations of voice recognition software. These areas are purely typographical due to imperfections of the software programs and do not reflect any compromise in the patient's medical care. Please read the chart carefully and recognize, using context, where these substitutions have occurred. Chief Complaint: Fall Injury Time Seen by MD: 16:35 Primary Care Provider: SALOME Reviewed Notes: Medications, Allergies Allergies: Coded Allergies: Codeine (Verified Allergy, Unknown, 01/16/15) Home Meds Reported Medications Donepezil Hydrochloride (DONEPEZIL HCL) 10 Mg Tab, 1 TAB PO DAILY, #90 TAB 1 Refill 04/06/25 Quetiapine Fumerate (Seroquel) 50 Mg Tab, 1 TAB PO BID for 90 Days, #180 04/06/25 Rivastigmine Tartrate (Rivastigmine Tartrate) 1.5 Mg Cap, 1 CAP PO BID for 90 Days, #180 04/06/25 Memantine Hydrochloride (Memantine HCl) 10 Mg Tab, 1 TAB PO BID for 90 Days, #180 04/04/23 Levothyroxine Sodium (Levothyroxine Sodium) 75 Mcg Tab, 1 TAB PO DAILY for 90 Days, #90 04/04/23 Information Source: Patient, Relative Mode of Arrival: Wheelchair Location: Left Extremity Location: Thigh Timing: Hours Prehospital treatment: None Severity: Moderate Past Medical History PAST MEDICAL HISTORY: Alzheimer, Anxiety, CHF, Dementia, Thyroid Surgical History: BTL, Cholecystectomy, Hysterectomy WRAPPER STRIPPER History: No Pertinent WRAPPER STRIPPER History Family History Family History: Family hx of DM, Family hx of HTN Social History Smoker: Non-Smoker Alcohol: Denies ETOH Use Drugs: Denies Drug Use Lives In: Home Was a procedure done? Was a procedure done?: No Differential Diagnosis EXT Differential Diagnosis: Fracture, Dislocation, Neurovascular injury, Other (Hematoma, intra-abdominal bleed,) X-Ray, Labs, Meds, VS Vital Signs Date Time Temp Pulse Resp B/P (MAP) Pulse Ox O2 Delivery O2 Flow Rate FiO2 04/06/25 18:59 58 16 129/61 (83) 96 04/06/25 15:59 98.7 46 18 144/[address] [address] Ph: [phone] DIAGNOSTIC IMAGING Diagnostic Imaging Report : [id number] Signed PATIENT: TON LAY ACCT: [id number] UNIT: [id number] : 1945 LOC: ER ROOM / BED: / AGE / SEX: 79 / F ADM STATUS: REG ER SERVICE [id number] ORDERING PHYSICIAN: NESSA SUGGS DO PROCEDURE(s): ABPL - CT AB PEL WO CON-NO ORAL OR IV REASON: fall L HIP PAIN ORDER NUMBER(s): [id number], ACCESSION NUMBER(s): [id number] Indication: fall L HIP PAIN Technique: CT axial images of the abdomen and pelvis are obtained without contra st. Coronal and sagittal reformats were obtained. Comparison: CT ABD/PEL on DOS: 12/02/24, FINDINGS: There is limited interpretation of the abdomen and pelvis without administration of intravenous contrast. The lung bases demonstrate atelectasis. Adrenal glands, spleen, pancreas unremarkable in shape. Liver unremarkable in shape. Cholecystectomy. 7 mm left renal hemorrhagic / proteinaceous cysts. No hydronephrosis bilaterally. Stomach is partially distended. Small bowel loops are demonstrating fecal like contents. Large volume stool throughout the colon. Normal appendix. Abdominal aortic atherosclerotic disease and tortuosity. Bladder distended. No free pelvic fluid. No inguinal lymphadenopathy. There is acute left femur intertrochanteric fracture. Thoracolumbar degenerative disc disease. Moderate to advanced lumbar degenerative disc disease IMPRESSION: Limited evaluation without contrast. Acute left femur intertrochanteric fracture. Large volume stool throughout the colon. Fecal like contents within the small bowel which can be seen with ileus, hypomotility, bowel obstruction. Other findings as described. ATED BY: BLAIR MADERA MD DICTATED DATE/TIME: 04/06/251747 SIGNED BY: BLAIR MADERA MD SIGNED DATE/TIME: 04/06/251747 CC: Time of 1ST Reevaluation: 17:05 Reevaluation 1ST: Unchanged Patient Education/Counseling: Diagnosis, Treatment Family Education/Counseling: Diagnosis, Treatment Comments MDM: patient presented with the above HPI.--fall/left hip pain----workup was initiated. patient was found with the above mentioned diagnosis. the following medications were ordered: please refer to order lists of meds and tests obtained by myself Dr. Suggs. Patient ED course and VS have been stabilized. Patient has been reassessed in the ED and remained in a stable condition. Pertinent incidental findings were discussed with the patient and/or family. Patient/family voices understanding and is agreeable with plan. Patient has been observed in the ED adequate length of time to insure improvement/stability. Escalation of care considered: Consideration of escalation to observation or admission Patient was ADMITTED to the medicine team for further evaluation and treatment of their presentation. All the reports of any imaging studies that were ordered by myself were reviewed by myself. Departure 1 Departure Time of Disposition: 18:41 Impression: Primary Impression: Intertrochanteric fracture of left femur Additional Impression: Abnormal finding on CT scan Disposition: ADMITTED INPATIENT Admit to: [facility] Condition: Guarded Discharged With: Self Critical Care Note Critical Care Time?: No I personally scribed for NESSA SUGGS DO ([email or web address]) on 04/06/25 at 16:54. Electronically submitted by Autumn Shaw ([email or web address]). I personally scribed for NESSA SUGGS DO ([email or web address]) on 04/06/25 at 16:55. Electronically submitted by Autumn Shaw ([email or web address]). I personally scribed for NESSA SUGGS DO ([email or web address]) on 04/06/25 at 18:11. Electronically submitted by Autumn Shaw ([email or web address]). NESSA SUGGS DO Apr 06, 2025 16:54
--- NOTE | 2025-04-06 17:47 | DVH ---
Indication: fall L HIP PAIN Technique: CT axial images of the abdomen and pelvis are obtained without contrast. Coronal and sagit eduardo reformats were obtained. Comparison: CT ABD/PEL on DOS: 12/02/24, FINDINGS: There is limited interpretation of the abdomen and pelvis without administration of intravenous contr ast. The lung bases demonstrate atelectasis. Adrenal glands, spleen, pancreas unremarkable in shape. Liver unremarkable in shape. Cholecystectom y. 7 mm left renal hemorrhagic / proteinaceous cysts. No hydronephrosis bilaterally. Stomach is partially distended. Small bowel loops are demonstrating fecal like contents. Large volume stool throughout the colon. Normal appendix. Abdominal aortic atherosclerotic disease and tortuosity. Bladder distended. No free pelvic fluid. No inguinal lymphadenopathy. There is acute left femur intertrochanteric fracture. Thoracolumbar degenerative disc disease. Moderate to advanced lumbar degenerative disc disease IMPRESSION: Limited evaluation without contrast. Acute left femur intertrochanteric fracture. Large volume stool throughout the colon. Fecal like contents within the small bowel which can be seen with ileus, hypomotility, bowel obstruct ion. Other findings as described.
[2025-04-06] MEDS ORDERED: NITROGLYCERIN 0.4 MG SL TAB SL PRN (20:00)
[2025-04-06] MEDS ORDERED: MORPHINE SULFATE INJ 2 MG/ml SYRG IV PRN (20:00)
[2025-04-06 20:16] LABS: Hematocrit 39.8 % (36.0-46.0); Hemoglobin 13.3 g/dL (12.2-16.2); Mean Corpuscular Hemoglobin 30.6 pg (28.0-32.0); Mean Corpuscular Volume 91.4 fL (80.0-100.0); Nucleated Red Blood Cells % 0.0 %
[2025-04-06 20:31] LABS: Alanine Aminotransferase 17 U/L (7-40); Alkaline Phosphatase 104 U/L (46-116); Calcium 9.0 mg/dL (8.7-10.4); INR 0.98 (0.9-1.15); Partial Thromboplastin Time 25.9 SEC (24.5-34.5); Prothrombin Time 10.4 sec (9.3-11.8)
[2025-04-06 20:32] LABS: Albumin 4.1 g/dL (3.2-4.8); Anion Gap 12 (5-15); BUN/Creatinine Ratio 14.8 (10.0-20.0); Bilirubin, Total 0.5 mg/dL (0.2-1.0); Blood Urea Nitrogen 12 mg/dL (9-23); Carbon Dioxide 26 mmol/L (20-31); Sodium 145 mmol/L (136-145); Total Protein 7.2 g/dL (5.7-8.2)
[2025-04-06 21:15] LABS: Chloride 107 mmol/L (98-107); Glucose 198 mg/dL (74-106); Potassium 3.5 mmol/L (3.5-5.1)
--- NOTE | 2025-04-06 22:13 | DVHHP2 ---
History of Present Illness Reason for Visit: Left hip pain History of Present Illness 79-year-old female presents for evaluation of left hip pain. Patient is accompanied by family members. Patient with a history of dementia A&O x1 at baseline. Is reported the patient had a witnessed fall where she fell onto her left side while getting dressed. No head trauma or loss of consciousness. Past Medical History Alzheimer's, CHF, anxiety, thyroid disease Past Surgical History Cholecystectomy, hysterectomy Family History Noncontributory Smoke: No ALCOHOL: none Drugs: None Lives: with Family Review of Systems Review of Systems Unable to complete review of systems due to the patient's advanced dementia Allergies: Coded Allergies: Codeine (Verified Allergy, Unknown, 01/16/15) Medications Current Medications Medications Dose Ordered Sig/Chrissy Route Start Time Stop Time Status Last Admin Dose Admin Nitroglycerin 0.4 mg Q5MINP PRN SL 04/06/25 20:00 Morphine Sulfate 2 mg Q30M PRN IV 04/06/25 20:00 Exam Vital Signs Vital Signs Date Time Temp Pulse Resp B/P (MAP) Pulse Ox O2 Delivery O2 Flow Rate FiO2 04/06/25 18:59 58 16 129/61 (83) 96 04/06/25 15:59 98.7 98.7 Exam Gen: 79-year-old female in mild distress Skin: Warm, dry, normal color and texture, no rash. HEENT: Normocephalic atraumatic, mucous membranes moist and pink. Neck: Cervical and supraclavicular nodes normal without enlargement, trachea is midline, thyroid gland is normal without masses. Pulmonary: Clear to auscultation and percussion bilaterally. Cardiac: Regular rate and rhythm. No murmur Abdomen: Soft, nontender, nondistended, bowel sounds present all 4 quadrants, no guarding, no rigidity, no organomegaly. Extremities: No cyanosis, clubbing, left lower extremity with limited range of motion with positive distal pulses. Neuro: Cranial nerves II through XII grossly intact, normal affect and speech, no focal motor deficits. Labs/Xrays ORDERING PHYSICIAN: NESSA SUGGS DO PROCEDURE(s): ABPL - CT AB PEL WO CON-NO ORAL OR IV REASON: fall L HIP PAIN ORDER NUMBER(s): [id number], ACCESSION NUMBER(s): [id number] Indication: fall L HIP PAIN Technique: CT axial images of the abdomen and pelvis are obtained without contrast. Coronal and sagittal reformats were obtained. Comparison: CT ABD/PEL on DOS: 12/02/24, FINDINGS: There is limited interpretation of the abdomen and pelvis without administration of intravenous contrast. The lung bases demonstrate atelectasis. Adrenal glands, spleen, pancreas unremarkable in shape. Liver unremarkable in shape. Cholecystectomy. 7 mm left renal hemorrhagic / proteinaceous cysts. No hydronephrosis bilaterally. Stomach is partially distended. Small bowel loops are demonstrating fecal like contents. Large volume stool throughout the colon. Normal appendix. Abdominal aortic atherosclerotic disease and tortuosity. Bladder distended. No free pelvic fluid. No inguinal lymphadenopathy. There is acute left femur intertrochanteric fracture. Thoracolumbar degenerative disc disease. Moderate to advanced lumbar degener ative disc disease IMPRESSION: Limited evaluation without contrast. Acute left femur intertrochanteric fracture. Large volume stool throughout the colon. Fecal like contents within the small bowel which can be seen with ileus, hypomotility, bowel obstruction. Other findings as described. Labs Test 04/06/25 20:03 Range/Units White Blood Count 9.1 4.4-10.8 10^3/uL Red Blood Count 4.36 4.0-5.20 10^6/uL Hemoglobin 13.3 12.2-16.2 g/dL Hematocrit 39.8 36.0-46.0 % Mean Corpuscular Volume 91.4 80.0-100.0 fL Mean Corpuscular Hemoglobin 30.6 28.0-32.0 pg Mean Corpuscular Hemoglobin Concent 33.5 32.0-36.0 g/dL Red Cell Distribution Width 14.5 H 11.8-14.3 % Platelet Count 222 140-450 10^3/uL Mean Platelet Volume 6.6 L 6.9-10.8 fL Neutrophils (%) (Auto) 83.9 H 37.0-80.0 % Lymphocytes (%) (Auto) 8.5 L 10.0-50.0 % Monocytes (%) (Auto) 7.2 0.0-12.0 % Eosinophils (%) (Auto) 0.1 0.0-7.0 % Basophils (%) (Auto) 0.3 0.0-2.0 % Neutrophils # (Auto) 7.6 1.6-8.6 10 ^3/uL Lymphocytes # (Auto) 0.8 0.4-5.4 10 ^3/uL Monocytes # (Auto) 0.6 0-1.3 10 ^3/uL Eosinophils # (Auto) 0 0-0.8 10 ^3/uL Basophils # (Auto) 0 0-0.2 10 ^3/uL Nucleated Red Blood Cells 0.0 % Prothrombin Time 10.4 9.3-11.8 sec Prothrombin Time INR 0.98 0.9-1.15 Activated Partial Thromboplast Time 25.9 24.5-34.5 SEC Sodium Level 145 136-145 mmol/L Potassium Level 3.5 3.5-5.1 mmol/L Chloride Level 107 98-107 mmol/L Carbon Dioxide Level 26 20-31 mmol/L Anion Gap 12 5-15 Blood Urea Nitrogen 12 9-23 mg/dL Creatinine 0.81 0.550-1.02 mg/dL Glomerular Filtration Rate Calc 74 >90 mL/min BUN/Creatinine Ratio 14.8 10.0-20.0 Serum Glucose 198 H 74-106 mg/dL Calcium Level 9.0 8.7-10.4 mg/dL Total Bilirubin 0.5 0.2-1.0 mg/dL Aspartate Amino Transferase (AST) 26 13-40 U/L Alanine Aminotransferase (ALT) 17 7-40 U/L Alkaline Phosphatase 104 46-116 U/L Troponin I High Sensitivity 4 </=34 ng/L Total Protein 7.2 5.7-8.2 g/dL Albumin 4.1 3.2-4.8 g/dL SEPSIS Sepsis Screen Date sepsis recognized/suspect: Apr 06, 2025 Time Sepsis recognized/suspect: 1558 Recent Procedure: No On Antibiotic Therapy: No Respiratory Rate >20: No Heart Rate >90: No Temp<36 C (96.8 F) or >38.3 C: No SBP <90 or MAP <65 mmHG: No New Acute Mental Status Change: No Is the patient on CPAP, BIPAP,: No Physician Orders Ct Ab Pel Wo Con-No Oral Or Iv (04/06/25 16:54) Admit (04/06/25 19:48) Nitroglycerin Sublingual (Ntrostat Subli (04/06/25 20:00) Morphine Sulfate Injection (04/06/25 20:00) Stat Ekg For Chest Pain (04/06/25 19:48) Notify Md Of Changes From Base (04/06/25 19:48) Pipe And Tank Fabricator For 24 Hours (04/06/25 19:48) Emergency Dysrhythmia Protocol (04/06/25 19:48) Rhythm Strips Once Every Shift (04/06/25 19:48) Oxygen By Nasal Cannula (04/06/25 19:48) * Orthopedic Consult (04/06/25 22:03) Insert Vicente Catheter QSHIFT (04/06/25 22:03) Levothyroxine Tablet (Synthroid Tablet) (04/07/25 06:00) Memantine Tablet (Namenda Tablet) (04/07/25 10:00) Basic Metabolic Panel (04/07/25 04:00) Urinalysis (04/06/25 22:03) Ketorolac Injection (Toradol Injection) (04/06/25 22:15) Hydrocodone-Acet 5/325mg Tab (Lindsay 5/32 (04/06/25 22:15) Ondansetron Hcl (Zofran) (04/06/25 22:15) Complete Blood Count (04/07/25 04:00) Cardiac Diet-2gna,Lofat,Lochol (04/07/25 Breakfast) Condition: Stable (04/06/25 22:03) Acetaminophen Tablet (Tylenol Tablet) (04/06/25 22:15) Maintain Bed Rest (04/06/25 22:03) Sequential Compression Device (04/06/25 ) Vital Signs Date Time Temp Pulse Resp B/P (MAP) Pulse Ox O2 Delivery O2 Flow Rate FiO2 04/06/25 18:59 58 16 129/61 (83) 96 04/06/25 15:59 98.7 46 18 144/91 97 98.7 Laboratory Tests Test 04/06/25 20:03 White Blood Count 9.1 10^3/uL (4.4-10.8) Assessment/Plan Assessment/Plan Assessment Left femur fracture Bradycardia Dementia Plan Admit the patient to telemetry to the hospitalist Orthopedic consultation Pain management Resume home medications Continue treatment per orders. Plan discussed with: Other My Orders Orders - ROSHNI MARTINEZ Procedure Category Date Status Time Admit ADMIT 04/06/25 Transmitted 19:48 Nitroglycerin PHA 04/06/25 In Process Sublingual (Ntrostat 20:00 Morphine Sulfate PHA 04/06/25 In Process Injection 20:00 Stat Ekg For Chest KELSEY 04/06/25 In Process Pain 19:48 Notify Of Changes KELSEY 04/06/25 In Process From Base 19:48 Pipe And Tank Fabricator For KELSEY 04/06/25 In Process 24 Hours 19:48 Emergency Dysrhythmia KELSEY 04/06/25 In Process Protocol 19:48 Rhythm Strips Once KELSEY 04/06/25 In Process Every Shift 19:48 Oxygen By Nasal RT 04/06/25 Transmitted Cannula 19:48 * Orthopedic Consult CONS 04/06/25 Transmitted 22:03 Insert Vicente Catheter KELSEY 04/06/25 Transmitted 22:03 Levothyroxine Tablet PHA 04/07/25 Transmitted (Synthroid Tablet) 06:00 Memantine Tablet PHA 04/07/25 Transmitted (Namenda Tablet) 10:00 Basic Metabolic Panel LAB 04/07/25 Verified 04:00 Urinalysis LAB 04/06/25 Transmitted 22:03 Ketorolac Injection PHA 04/06/25 Transmitted (Toradol Injection) 22:15 Hydrocodone-Acet PHA 04/06/25 Transmitted 5/325mg Tab (Lindsay 22:15 Ondansetron Hcl PHA 04/06/25 Transmitted (Zofran) 22:15 Complete Blood Count LAB 04/07/25 Verified 04:00 Cardiac DIET 04/07/25 Transmitted Diet-2gna,Lofat,Lochol Breakfast Condition: Stable KELSEY 04/06/25 Transmitted 22:03 Acetaminophen Tablet PHA 04/06/25 Transmitted (Tylenol Tablet) 22:15 Maintain Bed Rest KELSEY 04/06/25 Transmitted 22:03 Sequential KELSEY 04/06/25 Transmitted Compression Device Date of Service: Apr 06, 2025 Billing Provider: ROSHNI MARTINEZ Common Visit Codes: [id number] INP/OBS CARE (HIGH) ROSHNI MARTINEZ Apr 06, 2025 22:13
[2025-04-06] MEDS ORDERED: ONDANSETRON HCL 4 MG/2 ML VIAL IV PRN (22:15)
[2025-04-06] MEDS ORDERED: DONE1TAB88 PO (23:49)
[2025-04-07 01:02] VITALS: PULSE 50; RESP 16; O2SAT 98
[2025-04-07] MEDS: LEVOTHYROXINE SODIUM 100 MCG TAB PO SCH (06:49)
[2025-04-07] MEDS: ACETAMINOPHEN 325 MG TAB PO PRN (06:50)
[2025-04-07 07:32] LABS: Anion Gap 11 (5-15); Calcium 8.8 mg/dL (8.7-10.4); Carbon Dioxide 29 mmol/L (20-31); Chloride 106 mmol/L (98-107)
[2025-04-07 07:35] LABS: Potassium 3.1 mmol/L (3.5-5.1); Sodium 146 mmol/L (136-145)
[2025-04-07 07:38] LABS: BUN/Creatinine Ratio 18.3 (10.0-20.0); Blood Urea Nitrogen 11 mg/dL (9-23); Glucose 78 mg/dL (74-106)
[2025-04-07 07:39] LABS: Hematocrit 38.4 % (36.0-46.0); Hemoglobin 13.2 g/dL (12.2-16.2); Mean Corpuscular Hemoglobin 30.9 pg (28.0-32.0); Mean Corpuscular Volume 89.5 fL (80.0-100.0); Nucleated Red Blood Cells % 0.1 %
[2025-04-07 08:00] VITALS: PULSE 60; RESP 16; O2SAT 96
[2025-04-07 09:00] VITALS: BP 92/53; PULSE 50; RESP 16; TEMP 97.9; O2SAT 98
[2025-04-07] MEDS: MEMANTINE HCL 5 MG TAB PO SCH (09:49)
[2025-04-07] MEDS: KETOROLAC TROMETH 30 MG/ML 1ML VIAL IV PRN (09:56)
--- NOTE | 2025-04-07 12:44 | DVHPN2 ---
Progress Note Date Seen: Apr 07, 2025 Medical Necessity Reason Pt with a Central, PICC or Fol: No Subjective Patient reports: No new complaints Review of Systems: HEENT:Normal, CVS:Normal, RESPIRATORY:Normal, GI:Normal, :Normal, MSK:Normal, NEURO:Normal Objective vital signs Vital Sign Date Time Temp Pulse Resp B/P (MAP) Pulse Ox O2 Delivery O2 Flow Rate FiO2 04/07/25 09:00 97.9 50 16 92/53 (66) 98 97.9 04/07/25 01:02 Room Air* 0 21 Total Intake and Output 04/06/25 04/06/25 04/07/25 15:00 23:00 07:00 Intake Total 0 ml Balance 0 ml medications Current Medications Medications Dose Ordered Sig/Chrissy Route Start Time Stop Time Status Last Admin Dose Admin Nitroglycerin 0.4 mg Q5MINP PRN SL 04/06/25 20:00 Morphine Sulfate 2 mg Q30M PRN IV 04/06/25 20:00 Levothyroxine Sodium 100 mcg QAM@0600 PO 04/07/25 06:00 04/07/25 06:49 100 MCG Memantine 10 mg Q12HR PO 04/07/25 10:00 04/07/25 09:49 10 MG Ketorolac Tromethamine 15 mg Q6HPRN PRN IV 04/06/25 22:15 04/11/25 22:14 04/07/25 09:56 15 MG Acetaminophen/ Hydrocodone Bitart 1 tab Q4HP PRN PO 04/06/25 22:15 Ondansetron HCl 4 mg Q4HP PRN IV 04/06/25 22:15 Acetaminophen 650 mg Q6HP PRN PO 04/06/25 22:15 04/07/25 06:50 650 MG Examination: GENERAL:Normal, HEENT:Normal, NECK:Normal, LUNGS:Normal, CVS:Normal, ABDOMEN:Normal, MSK:Normal, SKIN:Normal, NEURO:Normal, :Normal laboratory and microbiology Laboratory Tests 04/07/25 06:05 Test 04/07/25 06:05 Range/Units Serum Glucose 78 74-106 mg/dL Problem List/Assessment/Plan Problem List/Assessment/Plan #1 left femur fracture: surg in am #2 dementia #3 bradycardia #4 hypothyroidism advance care planning- full code- time spent 18 mins Plan discussed with: Patient My Orders My Orders Orders - ROSHNI WHITAKER MD Procedure Category Date Status Time Polyethylene Glycol PHA 04/07/25 Verified 17g Powder (Miralax 12:45 Polyethylene Glycol PHA 04/07/25 Verified 17g Powder (Miralax 12:45 Docusate Sodium PHA 04/07/25 Verified Capsule (Colace 12:45 Docusate Sodium PHA 04/07/25 Verified Capsule (Colace 22:00 D5 1/2 Ns Potassium PHA 04/07/25 Verified 20meq 12:45 Potassium Er Tablet PHA 04/07/25 Verified (Klor-Con Tablet) 12:45 Date of Service: Apr 07, 2025 Billing Provider: ROSHNI WHITAKER MD Common Visit Codes: [id number] INP/OBS CARE(HIGH) Secondary Visit Codes: [id number] CARE PLAN 30 MINUTES ROSHNI WHITAKER MD Apr 07, 2025 12:44
[2025-04-07 13:00] VITALS: BP 138/82; PULSE 55; RESP 17; O2SAT 96
--- NOTE | 2025-04-07 13:31 | DVH ---
EXAM: XY CHEST PORTABLE Indication: Pain Technique: Single frontal view of the chest was obtained Comparison: XY CHEST XRAY 1 VIEW on DOS: 01/26/24, XY CHEST PORTABLE on DOS: 05/24/23, XY CHEST TWO VIE WS ROUTINE on DOS: 04/04/23, CHEST XRAY 1 VIEW on DOS: 01/02/22, CXR2 on DOS: 10/11/21 FINDINGS: Lines and Tubes: None Lungs: No focal consolidation. Pleura: No effusion. No pneumothorax. Cardiomediastinal contours: Unremarkable Bones: No acute osseous abnormality. IMPRESSION: No acute cardiopulmonary disease.
[2025-04-07] MEDS: DOCUSATE SOD 100 MG CAP PO ONE (13:42)
[2025-04-07] MEDS: POLYETHYLENE GLYCOL 17 GM PWDR PO ONE (13:42)
--- NOTE | 2025-04-07 14:02 | DVHINCON2 ---
Date Seen: Apr 07, 2025 Referring Physician MD Kati Reason for Consultation Cardiac risk stratification History of Present Illness This is a 79-year-old female who presented to the emergency room with a chief complaint of right hip pain. Patient is A&O x1 secondary to dementia. Info rmation obtained from granddaughter at bedside who witnessed the event. States the patient experienced a mechanical fall injury while attempting to take off her pants landing onto her right side. Given continuous complains of pain, the patient was brought in for further evaluation. He has been diagnosed with an acute left femur intertrochanteric fracture with surgical team requesting cardiac evaluation prior to interventional procedure. Granddaughter denies the patient complaining of any chest pain, SOB, palpitations, dizziness, or syncopal events. States the patient is functional and able to walk around the house without assistance. A twelve-lead electrocardiogram revealed a sinus bradycardia rhythm without AV blocks or pauses and an associated RBBB. Baseline troponin level is negative. Significant medical history includes Alzheimer's dementia, thyroid disease, and anxiety. Past Medical History Past medical history reviewed. No other significant than mentioned above. Past Surgical History Hysterectomy Family History: Diabetes mellitus G8 SISTER FH: dementia G8 MOTHER FH: dementia G8 MOTHER Family History Per granddaughter negative for CV disease. Social History Per grand-daughter, there is no use of illicit drugs, alcohol, or tobacco use. Allergies: Coded Allergies: Codeine (Verified Allergy, Unknown, 01/16/15) Home Meds Active Scripts Levothyroxine Sodium (SYNTHROID TABLET) 100 Mcg Tb, 1 TAB PO DAILY, #90 TAB 1 R efill Prov:ISABELLA TUCKER MD 05/28/23 Levothyroxine Sodium (SYNTHROID TABLET) 50 Mcg Tb, 1 TAB PO DAILY, #90 TAB 1 Refill Prov:ISABELLA TUCKER MD 05/28/23 Ciprofloxacin Hcl (Cipro) 500 Mg Tab, 1 TAB PO BID, #20 TAB Prov:ISABELLA TUCKER MD 05/28/23 Reported Medications Donepezil Hydrochloride (DONEPEZIL HCL) 10 Mg Tab, 1 TAB PO DAILY, #90 TAB 1 Refill 04/06/25 Quetiapine Fumerate (Seroquel) 50 Mg Tab, 50 MG PO BID, TAB 04/06/25 Rivastigmine Tartrate (Rivastigmine Tartrate) 1.5 Mg Cap, 1.5 MG PO BID, CAP 04/06/25 Quetiapine Fumerate (QUETIAPINE FUMARATE) 25 Mg Tab, 1 TAB PO 05/26/23 Rivastigmine Tartrate (Rivastigmine Tartrate) 1.5 Mg Cap, 1.5 MG PO BID, CAP 04/04/23 Memantine Hydrochloride (Memantine HCl) 10 Mg Tab, 10 MG PO BID, TAB 04/04/23 Levothyroxine Sodium (Levothyroxine Sodium) 75 Mcg Tab, 75 MCG PO DAILY, TAB 04/04/23 Home Meds Home medicines reviewed. Current Medications Current Medications Medications (Trade) Dose Ordered Sig/Chrissy Route PRN Reason Start Time Stop Time Status Last Admin Nitroglycerin (Ntrostat Sublingual) 0.4 mg Q5MINP PRN SL FOR CHEST PAIN 04/06/25 20:00 Morphine Sulfate 2 mg Q30M PRN IV FOR CHEST PAIN 04/06/25 20:00 Levothyroxine Sodium (Synthroid Tablet) 100 mcg QAM@0600 PO 04/07/25 06:00 04/07/25 06:49 Memantine (Namenda Tablet) 10 mg Q12HR PO 04/07/25 10:00 04/07/25 09:49 Ketorolac Tromethamine (Toradol Injection) 15 mg Q6HPRN PRN IV SEVERE PAIN (7-10 PAIN SCALE) 04/06/25 22:15 04/11/25 22:14 04/07/25 09:56 Acetaminophen/ Hydrocodone Bitart (Santa 5/325MG Tab) 1 tab Q4HP PRN PO MODERATE PAIN (4-6 PAIN SCALE) 04/06/25 22:15 Ondansetron HCl (Zofran) 4 mg Q4HP PRN IV NAUSEA / VOMITING 04/06/25 22:15 Acetaminophen (Tylenol Tablet) 650 mg Q6HP PRN PO PAIN SCALE 1-3 OR TEMP>100.4 04/06/25 22:15 04/07/25 06:50 Polyethylene Glycol (Miralax 17GM Powder) 17 gm DAILYPRN PRN PO FOR CONSTIPATION 04/07/25 12:45 Docusate Sodium (Colace Capsule) 100 mg BID PO 04/07/25 22:00 Potassium Chloride/Dextrose/ Sod Cl 1,000 ml @ 75 mls/hr [id number] IV 04/07/25 12:45 Review of Systems Constitutional: No symptom reported Ears, Nose, & Throat: No symptom reported Eyes: No symptom reported Neurological: No symptoms reported Pulmonary/Respiratory: No symptom reported Cardiovascular: No symptom reported Gastrointestinal: No symptom reported Genitourinary: No symptom reported Musculoskeletal: Right lower extremity pain Skin: No symptom reported Psychiatric: No symptom reported Endocrine: No symptom reported Hemotologic/Lymphatic: No symptom reported Vital Signs Vital Signs Date Time Temp Pulse Resp B/P (MAP) Pulse Ox O2 Delivery O2 Flow Rate FiO2 04/07/25 09:00 97.9 50 16 92/53 (66) 98 97.9 04/07/25 08:00 Room Air* 0 21 Physical Exam General Appearance: A&O x 1. Thin. In no acute distress Head Exam: Normal inspection Neck Exam: Normal inspection. Normal alignment Pulmonary/Respiratory: Clear bilateral breath sounds Cardiovascular/Chest: Regular rate and rhythm. S1, S2. Sinus bradycardia with RBBB. No murmurs. No JVD. Peripheral Pulses: 2+ Radial (R). 2+ Radial (L). 2+ Pedal (R). 2+ Pedal (L) Abdominal Exam: Normal bowel sounds. Soft. Ankle Exam: Negative ankle edema Lower extremities: Negative lower extremity edema. Left lower extremity shortening. -external rotation Neuro/Mental Status: A&O x1. Non-verbal, tremors present Thoughts/Psych: Unable to assess Appearance: In no acute distress Skin Exam: Normal inspection. Normal color. Warm. Dry Labs/Diagnostic Data Labs Test 04/07/25 06:05 04/06/25 20:03 Range/Units White Blood Count 5.3 # 4.4-10.8 10^3/uL Red Blood Count 4.29 4.0-5.20 10^6/uL Hemoglobin 13.2 12.2-16.2 g/dL Hematocrit 38.4 36.0-46.0 % Mean Corpuscular Volume 89.5 80.0-100.0 fL Mean Corpuscular Hemoglobin 30.9 28.0-32.0 pg Mean Corpuscular Hemoglobin Concent 34.5 32.0-36.0 g/dL Red Cell Distribution Width 13.9 11.8-14.3 % Platelet Count 213 140-450 10^3/uL Mean Platelet Volume 6.6 L 6.9-10.8 fL Neutrophils (%) (Auto) 71.9 37.0-80.0 % Lymphocytes (%) (Auto) 18.1 10.0-50.0 % Monocytes (%) (Auto) 9.2 0.0-12.0 % Eosinophils (%) (Auto) 0.6 0.0-7.0 % Basophils (%) (Auto) 0.2 0.0-2.0 % Neutrophils # (Auto) 3.8 1.6-8.6 10 ^3/uL Lymphocytes # (Auto) 1.0 0.4-5.4 10 ^3/uL Monocytes # (Auto) 0.5 0-1.3 10 ^3/uL Eosinophils # (Auto) 0 0-0.8 10 ^3/uL Basophils # (Auto) 0 0-0.2 10 ^3/uL Nucleated Red Blood Cells 0.1 % Sodium Level 146 H 136-145 mmol/L Potassium Level 3.1 L 3.5-5.1 mmol/L Chloride Level 106 98-107 mmol/L Carbon Dioxide Level 29 20-31 mmol/L Anion Gap 11 5-15 Blood Urea Nitrogen 11 9-23 mg/dL Creatinine 0.60 0.550-1.02 mg/dL Glomerular Filtration Rate Calc 92 >90 mL/min BUN/Creatinine Ratio 18.3 10.0-20.0 Serum Glucose 78 74-106 mg/dL Calcium Level 8.8 8.7-10.4 mg/dL Prothrombin Time 10.4 9.3-11.8 sec Prothrombin Time INR 0.98 0.9-1.15 Activated Partial Thromboplast Time 25.9 24.5-34.5 SEC Total Bilirubin 0.5 0.2-1.0 mg/dL Aspartate Amino Transferase (AST) 26 13-40 U/L Alanine Aminotransferase (ALT) 17 7-40 U/L Alkaline Phosphatase 104 46-116 U/L Troponin I High Sensitivity 4 </=34 ng/L Total Protein 7.2 5.7-8.2 g/dL Albumin 4.1 3.2-4.8 g/dL Thyroid Stimulating Hormone (TSH) 2.06 0.55-4.78 uIU/mL Assessment Preprocedural cardiovascular examination Left femur fracture Thyroid disease Hypokalemia Alzheimer's dementia Anxiety Plan/Recommendation (Dr. Carlton) Revised cardiac risk index (Frank criteria): Class I at 0.5% risk of , ND or cardiac arrest. Patient has no underlying history of congestive heart failure, coronary artery disease, and has an optimal functional capacity. Per Cardiology standpoint, the patient is at an acceptable-risk for moderate-risk surgery. There is no additional cardiac workup indicated prior to surgery. Thank you for allowing us to care for this patient. Please call with any questions or concerns. This medical document was created using an electronic medical record system with voice recognition software and computerized dictation system. Although this document has been carefully reviewed, there might still be some phonetic and typographical errors. Occasional wrong-word or ``sound-alike substitutions m ay have occurred due to the inherent limitations of voice recognition software. These areas are purely typographical due to imperfections of the software programs and do not reflect any compromise in the patient's medical care. Please read the chart carefully and recognize, using context, where these substitutions have occurred. Plan discussed with: Other (Grand-daughter) NYHA Physical activity limitations: NA Date of Service: Apr 07, 2025 Billing Provider: MARCELL SMITH Cardiology Common Codes: [id number] INP/OBS CARE (High) MARCELL SMITH Apr 07, 2025 14:02
--- NOTE | 2025-04-07 14:29 | DVH ---
INDICATION: HTN TECHNIQUE: Frontal view of the chest. COMPARISON: XY CHEST PORTABLE on DOS: 04/07/25, XY CHEST XRAY 1 VIEW on DOS: 01/26/24, XY CHEST PORTAB LE on DOS: 05/24/23, XY CHEST TWO VIEWS ROUTINE on DOS: 04/04/23, CHEST XRAY 1 VIEW on DOS: 01/02/22 FINDINGS: . The heart and mediastinal contours are grossly unremarkable. There is no evidence of pleural disea se. The lungs are clear. The bony structures of the chest are intact without fracture. IMPRESSION: 1. No evidence of acute disease.
[2025-04-07] MEDS: POTASSIUM CHL 20 Meq TABLET PO ONE (15:26)
[2025-04-07] MEDS: D5W/SOD CHL 0.45%/KCL 20MEQ 1,000 ML IV SCH (15:27)
[2025-04-07 16:04] LABS: Urine Protein, UAD Negative (Negative)
[2025-04-07 17:00] VITALS: BP 150/94; PULSE 49; RESP 18; TEMP 97.4; O2SAT 99
--- NOTE | 2025-04-07 20:56 | DVHINCON2 ---
Consult Note Consult Consult Note Reason for Consultation: Left hip pain following ground-level fall. History of Present Illness: David Pena was seen in the Emergency Department after sustaining a ground- level fall yesterday. The patient reports acute onset of left hip pain since the incident. X-rays completed in the ER revealed a left hip fracture. No other joint pain, head injury, or loss of consciousness reported. Patient denies chest pain, shortness of breath, dizziness, or numbness/tingling of the extremities. hx od dementia. lives at home with family. Physical Examination: General: Alert, oriented 3, resting in bed, in mild distress due to hip pain. Left Lower Extremity: Positive tenderness to palpation over the left groin and lateral hip region. No erythema, edema, ecchymosis, or open skin lesions noted. Unable to perform range of motion testing of the left hip due to pain. Distal motor and sensory function intact. Capillary refill <2 seconds; distal pulses palpable. Other Extremities: No deformity, swelling, or tenderness. Imaging: CT PELVIS : Acute left hip fracture consistent with intertrochanteric pattern . Assessment: Left intertrochanteric femur fracture secondary to ground-level fall. Patient is an appropriate surgical candidate pending medical clearance. Plan: 1. Surgical Plan: Proceed with intramedullary (IM) nail fixation of the left hip scheduled for tomorrow at 11:[address] Upton. 2. Preoperative Instructions: NPO after midnight. Medical clearance and echocardiogram to be completed prior to surgery (nurse notified). 3. Pain Management: Continue multimodal pain control as per primary team. 4. Activity: Bedrest, non-weight bearing to left lower extremity. 5. DVT Prophylaxis: Hold chemical prophylaxis tonight; resume per postoperative protocol. 6. Labs/Imaging: CBC, CMP, coagulation panel, type & screen. 7. Consent: Obtained by nursing staff at bedside; risks and benefits discussed. 8. Follow-up: Ortho team to follow patient pre- and postoperatively. Discussion: Plan of care and surgical details discussed with the patient/FAMILY, who verbalized understanding and agreement. Nursing staff notified and in agreement with the plan. Plan discussed with: Patient, Other (BEDSIDE NURSE , FAMILY) Visit Coding Surgery Date of Service if different f: Apr 07, 2025 Billing Provider: YAIR WASHINGTON PAC Surgery Visit Codes: [id number] - INP CONSULT <55 MIN YAIR WASHINGTON PAC Apr 07, 2025 20:56
[2025-04-07] MEDS: DOCUSATE SOD 100 MG CAP PO SCH (21:44)
[2025-04-08] VITALS (11 sets, daily range): BP systolic 110–136; BP diastolic 70–81; PULSE 48–78; RESP 15–92; TEMP 97.3–98.2; O2SAT 0–99
--- NOTE | 2025-04-08 07:11 | ECG ---
[facility] Test Date: 2025-04-07 Test Time: 13:32:29 Pat Name: TON LAY [facility]: F Director Of Epidemiology: jesse : 1945 Requested By: RAJESH FUNES Order Number: [id number] Reading MD: Rogers Carlton Measurements Intervals [place] Rate: 49 P: 76 CA: 154 QRS: -40 QRSD: 141 T: 30 QT: 484 QTc: 437 Interpretive Statements Sinus bradycardia RBBB and LAFB Baseline wander in lead(s) V1 Electronically Signed On 04-12-2025 15:25:49 PDT by Rogers Carlton Please click the below link to view image of tracing.
--- NOTE | 2025-04-08 07:11 | ECG ---
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
[2025-04-08 07:34] LABS: Hematocrit 39.9 % (36.0-46.0); Hemoglobin 13.6 g/dL (12.2-16.2); Mean Corpuscular Hemoglobin 30.9 pg (28.0-32.0); Mean Corpuscular Volume 90.7 fL (80.0-100.0); Nucleated Red Blood Cells % 0.1 %
[2025-04-08 07:51] LABS: Chloride 106 mmol/L (98-107); Potassium 4.2 mmol/L (3.5-5.1); Sodium 142 mmol/L (136-145)
[2025-04-08 07:52] LABS: Anion Gap 12 (5-15); Carbon Dioxide 24 mmol/L (20-31)
[2025-04-08 07:57] LABS: BUN/Creatinine Ratio 15.0 (10.0-20.0); Blood Urea Nitrogen 9 mg/dL (9-23); Glucose 92 mg/dL (74-106)
[2025-04-08 08:07] LABS: Calcium 8.3 mg/dL (8.7-10.4)
[2025-04-08] MEDS ORDERED: KETAMINE 50mg/ML 1ml syringe ONE ×2 (12:55→14:01)
[2025-04-08] MEDS ORDERED: fentaNYL CITRATE 100 MCG/2 ML VL ONE (12:55)
[2025-04-08] MEDS ORDERED: ONDANSETRON HCL 4 MG/2 ML VIAL ONE (12:56)
[2025-04-08] MEDS ORDERED: GLYCOPYRROLATE 0.2 MG/ML 1ML VIAL ONE (12:56)
[2025-04-08] MEDS ORDERED: MIDAZOLAM HCL 2MG/2ML 2ml VIAL (1mg/ml) ONE (12:56)
[2025-04-08] MEDS ORDERED: PROPOFOL 10 MG/ML 20 ML IV ONE (12:56)
[2025-04-08] MEDS: ceFAZolin 2 GM/D5W50ml 50 ML IV ONE (13:19)
--- NOTE | 2025-04-08 13:21 | DVHHP2 ---
History Allergies: Coded Allergies: Codeine (Verified Allergy, Unknown, 01/16/15) Chief Complaint: left groin pain Present Illness(Onset/Duration 79F, left groin pain s/p mechanical fall on 04/06/25 Physical Exam EENT non oriented to person place date Chest and Lungs CTA B Heart RRR neg MRG Abdomen NBS ND NT Extremities Left hip/groin pain with PROM Vital Signs Vital Signs Date Time Temp Pulse Resp B/P (MAP) Pulse Ox O2 Delivery O2 Flow Rate FiO2 04/08/25 12:35 98.2 52 16 133/70 (91) 99 98.2 04/08/25 08:00 Room Air* 0 21 Impressions/Description Left hip intertrochanteric fracture Plan pre-op clearance done surgery ORIF left hip IT fracture RAJESH FUNES MD Apr 08, 2025 13:21
[2025-04-08] MEDS ORDERED: METOCLOPRAMIDE HCL 5MG/ml INJ 2ml VIAL IV PRN (13:30)
[2025-04-08] MEDS ORDERED: hydrALAZINE HCL 20 MG/ML VL IV PRN (13:30)
[2025-04-08] MEDS ORDERED: HYDROmorphone HCL 2 MG/ML VL/or syr IV PRN (13:30)
[2025-04-08] MEDS ORDERED: ONDANSETRON HCL 4 MG/2 ML VIAL IV PRN (13:30)
--- NOTE | 2025-04-08 14:15 | DVHPN2 ---
Progress Note Date Seen: Apr 08, 2025 Medical Necessity Reason Pt with a Central, PICC or Fol: No Subjective Patient reports: No new complaints Review of Systems: HEENT:Normal, CVS:Normal, RESPIRATORY:Normal, GI:Normal, :Normal, MSK:Normal, NEURO:Normal Objective vital signs Vital Sign Date Time Temp Pulse Resp B/P (MAP) Pulse Ox O2 Delivery O2 Flow Rate FiO2 04/08/25 12:35 98.2 52 16 133/70 (91) 99 98.2 04/08/25 08:00 Room Air* 0 21 Total Intake and Output 04/07/25 04/07/25 04/08/25 15:00 23:00 07:00 Intake Total 480 ml 120 ml Output Total 8 ml Balance 480 ml 112 ml medications Current Medications Medications Dose Ordered Sig/Chrissy Route Start Time Stop Time Status Last Admin Dose Admin Nitroglycerin 0.4 mg Q5MINP PRN SL 04/06/25 20:00 Morphine Sulfate 2 mg Q30M PRN IV 04/06/25 20:00 Levothyroxine Sodium 100 mcg QAM@0600 PO 04/07/25 06:00 04/08/25 06:10 100 MCG Memantine 10 mg Q12HR PO 04/07/25 10:00 04/07/25 21:45 10 MG Ketorolac Tromethamine 15 mg Q6HPRN PRN IV 04/06/25 22:15 04/11/25 22:14 04/08/25 01:27 15 MG Acetaminophen/ Hydrocodone Bitart 1 tab Q4HP PRN PO 04/06/25 22:15 Ondansetron HCl 4 mg Q4HP PRN IV 04/06/25 22:15 Acetaminophen 650 mg Q6HP PRN PO 04/06/25 22:15 04/07/25 06:50 650 MG Polyethylene Glycol 17 gm DAILYPRN PRN PO 04/07/25 12:45 Docusate Sodium 100 mg BID PO 04/07/25 22:00 04/07/25 21:44 100 MG Potassium Chloride/Dextrose/ Sod Cl 1,000 ml @ 75 mls/hr [id number] IV 04/07/25 12:45 04/08/25 05:42 75 MLS/HR Ondansetron HCl 4 mg ONCE PRN IV 04/08/25 13:30 04/08/25 13:31 UNV Hydralazine HCl 2.5 mg Q20M PRN IV 04/08/25 13:30 04/08/25 14:31 UNV Metoclopramide HCl 10 mg ONCE PRN IV 04/08/25 13:30 04/08/25 13:31 UNV Hydromorphone HCl 0.5 mg Q10M PRN IV 04/08/25 13:30 04/08/25 14:11 UNV Examination: GENERAL:Normal, HEENT:Normal, NECK:Normal, LUNGS:Normal, CVS:Normal, ABDOMEN:Normal, MSK:Normal, SKIN:Normal, NEURO:Normal, :Normal laboratory and microbiology Laboratory Tests 04/08/25 06:52 Test 04/08/25 06:52 Range/Units Serum Glucose 92 74-106 mg/dL Problem List/Assessment/Plan Problem List/Assessment/Plan #1 left femur fracture: surg today #2 dementia #3 bradycardia #4 hypothyroidism advance care planning- full code- time spent 18 mins Plan discussed with: Other (rn) My Orders My Orders Orders - ROSHNI WHITAKER MD Procedure Category Date Status Time Urinalysis LAB 04/07/25 Logged 12:38 Date of Service: Apr 08, 2025 Billing Provider: ROSHNI WHITAKER MD Common Visit Codes: [id number] INP/OBS CARE(HIGH) ROSHNI WHITAKER MD Apr 08, 2025 14:15
--- NOTE | 2025-04-08 14:28 | DVHOP2 ---
Operative Report - 2 Report Details Date: 04/08/25 Preop Diagnosis: left intertrochanteric femur ffracture Postop Diagnosis: same Surgeon: Rajesh Parkih MD Cleaner Furniture: none Anesthesiologist: Dr Mueller Anesthesia: Regional Drains: none Implant: Uzma IT nail, 9 mm 135deg, two proxiaml screws, locked, one distal Consent: The patient was informed of the risks and benefits of the procedure. These include but are not limited to complications of anesthesia, postoperative infection, incomplete relief of symptoms, recurrence of symptoms, damage to blood vessels, nerves and tendons, deep venous thrombosis, pulmonary embolism and possible need for repeat surgery in the future. Complications: none Estimated Blood Loss: 50 cc Fluids: 500 cc crystalloid Findings: above Indications for Surgery: unstable fracture pattern with requistie bed rest and complications associated with bedrest Name of Procedure Performed ORIF left IT femur fracture Procedure Details Procedure Details: Patient brought into the operating room given Ancef 1 g IV piggyback preoperatively a spinal anesthetic Dr. Franco without complication placed on a fracture table well-padded peroneal post well-padded well leg trejo right leg well-padded walker boot for traction left leg in traction applied with a slight longitudinal traction adduction and internal rotation C-arm fluoro AP and lateral showed anatomic alignment of fracture sterile prep and drape of the left hip and lower extremity time-out performed confirmation left side correct side after review of the operative consent history and physical my initials on left buttock this 3 cm incision made 3 cm proximal to tip of greater trochanter sharp dissection through skin down to deep fascia sharp division of deep fascia pl acement of guide pin on tip of greater trochanter and push it pushed independent femoral canal then a reaming to gain access to [place] femoral canal placement of 9 x 135 proximal Uzma IT ashok then guide sleeves prep a push to bone for distal large screw just inferior to mid aspect of femoral neck good position of guide pin seen on AP and lateral views reaming then performed a placement of primary femoral neck screw then anti rotation screw placed above this with C-arm with a guide pin placed under C-arm guidance and then reaming and placing on any rotation screw static distal screw then placed using C-arm guidance and a screw guide and proximal screws were then locked in place irrigation then performed excellent hemostasis noted C-arm fluoro showed anatomic alignment of fracture and good position of all hardware closure deep fascia 0 Vicryl subcutaneous 2-0 Vicryl skin margie fluffs ABD paper tape Specimen: none Condition Stable Disposition Still a Patient RAJESH PARIKH MD Apr 08, 2025 14:28
[2025-04-08] MEDS: ceFAZolin 1GM/50ML 50 ML IV SCH (17:07)
[2025-04-08] MEDS: LACTATED RINGER'S 1,000 ML IV SCH (18:15)
[2025-04-08] MEDS: ENOXAPARIN SOD 30 MG/0.3 ML SYRINGE SC SCH (22:00)
[2025-04-09] VITALS (7 sets, daily range): BP systolic 111–140; BP diastolic 61–83; PULSE 50–73; RESP 16–18; TEMP 97.9–99; O2SAT 90–98
[2025-04-09] MEDS: HYDROcodone-ACET 5/325MG TAB PO PRN (07:37)
--- NOTE | 2025-04-09 09:32 | DVHPN2 ---
Date of Progress Note Date of Progress Note Date of Progress Note: 04/09/25 Date of Admission Date of Admission Date of Admission: Date of Admission: Apr 06, 2025 at 19:48 Overnight Events Overnight events Overnight Events pt stable over night , tolerating pain on PO meds, no drainage, gutierrez in place, no change in mental status, baseline, confused Family History Family History Family History: Diabetes mellitus G8 SISTER FH: dementia G8 MOTHER FH: dementia G8 MOTHER Allergies: Coded Allergies: Codeine (Verified Allergy, Unknown, 01/16/15) Home Meds Reported Medications Donepezil Hydrochloride (DONEPEZIL HCL) 10 Mg Tab, 1 TAB PO DAILY, #90 TAB 1 Refill 04/06/25 Quetiapine Fumerate (Seroquel) 50 Mg Tab, 1 TAB PO BID for 90 Days, #180 04/06/25 Rivastigmine Tartrate (Rivastigmine Tartrate) 1.5 Mg Cap, 1 CAP PO BID for 90 Days, #180 04/06/25 Memantine Hydrochloride (Memantine HCl) 10 Mg Tab, 1 TAB PO BID for 90 Days, #180 04/04/23 Levothyroxine Sodium (Levothyroxine Sodium) 75 Mcg Tab, 1 TAB PO DAILY for 90 Days, #90 04/04/23 Current Medications Current Medications Medications (Trade) Dose Ordered Sig/Chrissy Route PRN Reason Start Time Stop Time Status Last Admin Ondansetron HCl (Zofran) 4 mg ONCE PRN IV NAUSEA / VOMITING 04/08/25 13:30 04/08/25 16:16 DC Hydralazine HCl (Apresoline Injection) 2.5 mg Q20M PRN IV SBP>150 04/08/25 13:30 04/08/25 16:16 DC Metoclopramide HCl (Reglan Injection) 10 mg ONCE PRN IV NAUSEA / VOMITING 04/08/25 13:30 04/08/25 16:16 DC Hydromorphone HCl (Dilaudid Injection) 0.5 mg Q10M PRN IV SEVERE PAIN (7-10 PAIN SCALE) 04/08/25 13:30 04/08/25 16:16 DC Lactated Ringer's 1,000 ml @ 100 mls/hr Q10H IV 04/08/25 14:30 04/08/25 18:15 Cefazolin Sodium 50 ml @ 50 mls/hr Q6H IV 04/08/25 14:30 04/09/25 03:29 DC 04/09/25 02:18 Enoxaparin Sodium (Lovenox) 30 mg Q12HR SC 04/08/25 22:00 04/08/25 22:00 Physical Examination General Examination: Last Vital sign Vital Signs Date Time Temp Pulse Resp B/P (MAP) Pulse Ox O2 Delivery O2 Flow Rate FiO2 04/09/25 05:00 97.9 72 18 113/78 (90) 94 97.9 04/08/25 20:10 Room Air* 0 21 General: General: No apparent distress, appears comfortable. Cooperative. Extremities: left hip, dressing, clean, dry Neurological Examination: Neurological Examination: Mental Status: Cranial Nerves: Motor Examination: Reflexes: Sensory: Coordination: Gait: Labs: Labs: Laboratory Tests Test 04/06/25 20:03 04/07/25 06:05 04/07/25 15:10 04/08/25 06:52 Range/Units White Blood Count 9.1 5.3 # 6.6 4.4-10.8 10^3/uL Red Blood Count 4.36 4.29 4.40 4.0-5.20 10^6/uL Hemoglobin 13.3 13.2 13.6 12.2-16.2 g/dL Hematocrit 39.8 38.4 39.9 36.0-46.0 % Mean Corpuscular Volume 91.4 89.5 90.7 80.0-100.0 fL Mean Corpuscular Hemoglobin 30.6 30.9 30.9 28.0-32.0 pg Mean Corpuscular Hemoglobin Concent 33.5 34.5 34.0 32.0-36.0 g/dL Red Cell Distribution Width 14.5 H 13.9 13.9 11.8-14.3 % Platelet Count 222 213 198 140-450 10^3/uL Mean Platelet Volume 6.6 L 6.6 L 6.7 L 6.9-10.8 fL Neutrophils (%) (Auto) 83.9 H 71.9 75.6 37.0-80.0 % Lymphocytes (%) (Auto) 8.5 L 18.1 15.3 10.0-50.0 % Monocytes (%) (Auto) 7.2 9.2 8.4 0.0-12.0 % Eosinophils (%) (Auto) 0.1 0.6 0.5 0.0-7.0 % Basophils (%) (Auto) 0.3 0.2 0.2 0.0-2.0 % Neutrophils # (Auto) 7.6 3.8 5.0 1.6-8.6 10 ^3/uL Lymphocytes # (Auto) 0.8 1.0 1.0 0.4-5.4 10 ^3/uL Monocytes # (Auto) 0.6 0.5 0.6 0-1.3 10 ^3/uL Eosinophils # (Auto) 0 0 0 0-0.8 10 ^3/uL Basophils # (Auto) 0 0 0 0-0.2 10 ^3/uL Nucleated Red Blood Cells 0.0 0.1 0.1 % Prothrombin Time 10.4 9.3-11.8 sec Prothrombin Time INR 0.98 0.9-1.15 Activated Partial Thromboplast Time 25.9 24.5-34.5 SEC Sodium Level 145 146 H 142 136-145 mmol/L Potassium Level 3.5 3.1 L 4.2 3.5-5.1 mmol/L Chloride Level 107 106 106 98-107 mmol/L Carbon Dioxide Level 26 29 24 20-31 mmol/L Anion Gap 12 11 12 5-15 Blood Urea Nitrogen 12 11 9 9-23 mg/dL Creatinine 0.81 0.60 0.60 0.550-1.02 mg/dL Glomerular Filtration Rate Calc 74 92 92 >90 mL/min BUN/Creatinine Ratio 14.8 18.3 15.0 10.0-20.0 Serum Glucose 198 H 78 92 74-106 mg/dL Calcium Level 9.0 8.8 8.3 L 8.7-10.4 mg/dL Total Bilirubin 0.5 0.2-1.0 mg/dL Aspartate Amino Transferase (AST) 26 13-40 U/L Alanine Aminotransferase (ALT) 17 7-40 U/L Alkaline Phosphatase 104 46-116 U/L Troponin I High Sensitivity 4 </=34 ng/L Total Protein 7.2 5.7-8.2 g/dL Albumin 4.1 3.2-4.8 g/dL Thyroid Stimulating Hormone (TSH) 2.06 0.55-4.78 uIU/mL Urine Color Light-yellow Yellow Urine Clarity Clear Clear Urine pH 7.0 5.0-9.0 Urine Specific [place] 1.020 1.001-1.035 Urine Protein Negative Negative Urine Ketones Negative Negative Urine Blood Negative Negative /uL Urine Nitrite Negative Negative Urine Bilirubin Negative Negative Urine Urobilinogen Normal Negative mg/dL Urine Leukocyte Esterase Negative Negative /uL Urine RBC 11 0 - 4 /hpf Urine Microscopic WBC 7 H 0-5 /HPF Urine Squamous Epithelial Cells Few <5 /hpf Urine Bacteria Few H None Seen /hpf Urine Mucus Few None Seen Urine Glucose Normal Normal mg/dL Assessment/Plan Assessment/Plan Assessment and Plan:Becky Laura is a 79 year old female POD 1 s/p ORIF left hip IT fracture clear for transfer from [facility]o [facility] follow up ortho clinic 2 wks with XR left hip 2 V PT WBAT Left LE, full assist Plan discussed with: Other RAJESH FUNES MD Apr 09, 2025 09:32
--- NOTE | 2025-04-09 11:40 | DVHPN2 ---
Subjective Patient with advanced dementia. Does not report any symptoms at this time Reviewed: Care Plan, H&P, Labs, Medications Changes from previous H/P or p: No Changes General: Per HPI Objective Vitals Vital Signs Date Time Temp Pulse Resp B/P (MAP) Pulse Ox O2 Delivery O2 Flow Rate FiO2 04/09/25 08:00 50 16 98 Room Air* 0 21 04/09/25 05:00 97.9 113/78 (90) 97.9 Intake/Output Intake and Output 04/09/25 07:00 Intake Total 200 ml Output Total 450 ml Balance -250 ml Intake Oral 0 ml IV Total 200 ml Output Urine Total 450 ml # Voids 2 General Appearance: Alert, Cooperative, mild distress HEENT: Atraumatic, PERRLA Lungs: Clear to auscultation, Normal air movement Cardiovascular: Normal S1, Normal S2 Abdomen: Normal bowel sounds, Soft, No tenderness, No masses Genitourinary: No Apparent Abnormalities Musculoskeletal: Normal sensory function, Normal motor function Extremities: Other (Left hip dressing dry and intact) Neuro: Normal gait, Normal speech Skin: Dry, Intact Psych/Mental Status: Mental status NL, Mood NL Medications Current Medications Medications Dose Ordered Sig/Chrissy Route Start Time Stop Time Status Last Admin Dose Admin Nitroglycerin 0.4 mg Q5MINP PRN SL 04/06/25 20:00 Morphine Sulfate 2 mg Q30M PRN IV 04/06/25 20:00 Levothyroxine Sodium 100 mcg QAM@0600 PO 04/07/25 06:00 04/08/25 06:10 100 MCG Memantine 10 mg Q12HR PO 04/07/25 10:00 04/09/25 09:56 10 MG Ketorolac Tromethamine 15 mg Q6HPRN PRN IV 04/06/25 22:15 04/11/25 22:14 04/09/25 06:06 15 MG Acetaminophen/ Hydrocodone Bitart 1 tab Q4HP PRN PO 04/06/25 22:15 04/09/25 07:37 1 TAB Ondansetron HCl 4 mg Q4HP PRN IV 04/06/25 22:15 Acetaminophen 650 mg Q6HP PRN PO 04/06/25 22:15 04/07/25 06:50 650 MG Polyethylene Glycol 17 gm DAILYPRN PRN PO 04/07/25 12:45 Docusate Sodium 100 mg BID PO 04/07/25 22:00 04/09/25 09:55 100 MG Lactated Ringer's 1,000 ml @ 100 mls/hr Q10H IV 04/08/25 14:30 04/08/25 18:15 100 MLS/HR Enoxaparin Sodium 30 mg Q12HR SC 04/08/25 22:00 04/09/25 09:55 30 MG Laboratory Results Laboratory Tests 04/08/25 06:52 Urinalysis Test 04/07/25 15:10 Urine Color Light-yellow (Yellow) Urine Clarity Clear (Clear) Urine pH 7.0 (5.0-9.0) Urine Specific [place] 1.020 (1.001-1.035) Urine Protein Negative (Negative) Urine Ketones Negative (Negative) Urine Blood Negative /uL (Negative) Urine Nitrite Negative (Negative) Urine Bilirubin Negative (Negative) Urine Urobilinogen Normal mg/dL (Negative) Urine Leukocyte Esterase Negative /uL (Negative) Urine RBC 11 /hpf (0 - 4) Urine Microscopic WBC 7 /HPF (0-5) H Urine Squamous Epithelial Cells Few /hpf (<5) Urine Bacteria Few /hpf (None Seen) H Urine Mucus Few (None Seen) Urine Glucose Normal mg/dL (Normal) Labs and/or images reviewed: Labs reviewed by me, Image(s) reviewed by me Assessment/Plan Assessment/Plan Impression: -left hip fracture, status post ORIF -bradycardia -hypothyroidism -dementia Plan: -patient postop day one. Recommendations reviewed from orthopedic surgery. -physical therapy -pain management -PUD, DVT prophylaxis -discharge planning with delinquency prevention social worker, we will probably need SNF placement. Total time spent with patient discussing and formulating plan of care: 35 minutes. This medical document was created using an electronic medical record system with [email or web address] dictation system. Although this document has been carefully reviewed, there may still be some phonetic and typographical errors. These areas are purely typographical due to imperfections of the software programs, and do not reflect any compromise in the patient's medical care. Plan discussed with: Patient, Other (RN) My Orders Orders - ANGELA BALDERAS NP Procedure Category Date Status Time Basic Metabolic Panel LAB 04/10/25 Verified 04:00 Complete Blood Count LAB 04/10/25 Verified 04:00 Date of Service: Apr 09, 2025 Billing Provider: ANGELA BALDERAS NP Common Visit Codes: [id number] INP/OBS CARE(HIGH) ANGELA BALDERAS NP Apr 09, 2025 11:40
--- NOTE | 2025-04-09 13:50 | DVH ---
C-ARM FLUOROSCOPY: PROCEDURE: ORIF left hip FLUOROSCOPY TIME: 28.4 sec DAP: 2.62 mgy FINDINGS: Spot intraoperative C arm radiographs demonstrating ORIF left hip. IMPRESSION: Please refer to surgical report for detailed findings.
[2025-04-09] MEDS: POLYETHYLENE GLYCOL 17 GM PWDR PO PRN (17:00)
[2025-04-10] VITALS (8 sets, daily range): BP systolic 103–155; BP diastolic 62–93; PULSE 49–73; RESP 16–18; TEMP 97.5–99.1; O2SAT 93–97
[2025-04-10] MEDS: BISACODYL 10 MG RECT SUPP PR ONE (12:37)
--- NOTE | 2025-04-10 12:38 | DVHPN2 ---
Subjective Patient with advanced dementia. Does not report any symptoms at this time Reviewed: Care Plan, H&P, Labs, Medications Changes from previous H/P or p: No Changes General: Per HPI Objective Vitals Vital Signs Date Time Temp Pulse Resp B/P (MAP) Pulse Ox O2 Delivery O2 Flow Rate FiO2 04/10/25 09:00 98.3 49 16 134/72 (92) 96 98.3 04/10/25 08:00 Room Air* 0 21 Intake/Output Intake and Output 04/10/25 07:00 Intake Total 500 ml Output Total 152 ml Balance 348 ml Intake Oral 500 ml Output Urine Total 152 ml # Voids 3 # Bowel Movements 3 General Appearance: Alert, Cooperative, mild distress HEENT: Atraumatic, PERRLA Lungs: Clear to auscultation, Normal air movement Cardiovascular: Normal S1, Normal S2 Abdomen: Normal bowel sounds, Soft, No tenderness, No masses Genitourinary: No Apparent Abnormalities Musculoskeletal: Normal sensory function, Normal motor function Extremities: Other (Left hip dressing dry and intact) Neuro: Normal gait, Normal speech Skin: Dry, Intact Psych/Mental Status: Mental status NL, Mood NL Medications Current Medications Medications Dose Ordered Sig/Chrissy Route Start Time Stop Time Status Last Admin Dose Admin Nitroglycerin 0.4 mg Q5MINP PRN SL 04/06/25 20:00 Morphine Sulfate 2 mg Q30M PRN IV 04/06/25 20:00 Levothyroxine Sodium 100 mcg QAM@0600 PO 04/07/25 06:00 04/08/25 06:10 100 MCG Memantine 10 mg Q12HR PO 04/07/25 10:00 04/10/25 09:41 10 MG Ketorolac Tromethamine 15 mg Q6HPRN PRN IV 04/06/25 22:15 04/11/25 22:14 04/10/25 11:35 15 MG Acetaminophen/ Hydrocodone Bitart 1 tab Q4HP PRN PO 04/06/25 22:15 04/10/25 02:24 1 TAB Ondansetron HCl 4 mg Q4HP PRN IV 04/06/25 22:15 Acetaminophen 650 mg Q6HP PRN PO 04/06/25 22:15 04/07/25 06:50 650 MG Polyethylene Glycol 17 gm DAILYPRN PRN PO 04/07/25 12:45 04/09/25 17:00 17 GM Docusate Sodium 100 mg BID PO 04/07/25 22:00 04/10/25 09:41 100 MG Lactated Ringer's 1,000 ml @ 100 mls/hr Q10H IV 04/08/25 14:30 04/10/25 06:15 100 MLS/HR Enoxaparin Sodium 30 mg Q12HR SC 04/08/25 22:00 04/10/25 09:38 30 MG Laboratory Results Laboratory Tests 04/08/25 06:52 Urinalysis Test 04/07/25 15:10 Urine Color Light-yellow (Yellow) Urine Clarity Clear (Clear) Urine pH 7.0 (5.0-9.0) Urine Specific [place] 1.020 (1.001-1.035) Urine Protein Negative (Negative) Urine Ketones Negative (Negative) Urine Blood Negative /uL (Negative) Urine Nitrite Negative (Negative) Urine Bilirubin Negative (Negative) Urine Urobilinogen Normal mg/dL (Negative) Urine Leukocyte Esterase Negative /uL (Negative) Urine RBC 11 /hpf (0 - 4) Urine Microscopic WBC 7 /HPF (0-5) H Urine Squamous Epithelial Cells Few /hpf (<5) Urine Bacteria Few /hpf (None Seen) H Urine Mucus Few (None Seen) Urine Glucose Normal mg/dL (Normal) Labs and/or images reviewed: Labs reviewed by me, Image(s) reviewed by me Assessment/Plan Assessment/Plan Impression: -left hip fracture, status post ORIF -bradycardia -hypothyroidism -dementia -constipation Plan: Events: Patient ambulating approximately 30 ft. -patient postop day one. Recommendations reviewed from orthopedic surgery. -physical therapy -pain management -bowel regimen -PUD, DVT prophylaxis -discharge planning with social media marketing analyst, we will probably need SNF placement. Total time spent with patient discussing and formulating plan of care: 35 minutes. This medical document was created using an electronic medical record system with [employer] dictation system. Although this document has been carefully reviewed, there may still be some phonetic and typographical errors. These areas are purely typographical due to imperfections of the software programs, and do not reflect any compromise in the patient's medical care. Plan discussed with: Patient, Other (RN) My Orders Orders - ANGELA BALDERAS PATIENT INTAKE REPRESENTATIVE Procedure Category Date Status Time Lactulose Oral PHA 04/10/25 Verified 12:45 Date of Service: Apr 10, 2025 Billing Provider: ANGELA BALDERAS NP Common Visit Codes: [id number] INP/OBS CARE(HIGH) ANGELA BALDERAS NP Apr 10, 2025 12:38
[2025-04-10 16:08] LABS: Hematocrit 36.5 % (36.0-46.0); Hemoglobin 12.5 g/dL (12.2-16.2); Mean Corpuscular Hemoglobin 30.9 pg (28.0-32.0); Mean Corpuscular Volume 90.4 fL (80.0-100.0); Nucleated Red Blood Cells % 0.2 %
[2025-04-10 16:18] LABS: Chloride 104 mmol/L (98-107); Potassium 3.6 mmol/L (3.5-5.1); Sodium 140 mmol/L (136-145)
[2025-04-10 16:19] LABS: Anion Gap 9 (5-15); Carbon Dioxide 27 mmol/L (20-31)
[2025-04-10 16:20] LABS: Calcium 8.6 mg/dL (8.7-10.4)
[2025-04-10 16:24] LABS: BUN/Creatinine Ratio 12.5 (10.0-20.0); Blood Urea Nitrogen 9 mg/dL (9-23); Glucose 121 mg/dL (74-106)
[2025-04-10] MEDS: LACTULOSE 20Gm/30ML SOLN PO PRN (18:18)
[2025-04-11] VITALS (7 sets, daily range): BP systolic 119–137; BP diastolic 54–76; PULSE 54–88; RESP 18; TEMP 98–98.8; O2SAT 92–98
--- NOTE | 2025-04-11 13:34 | DVHPN2 ---
Subjective Patient with advanced dementia. Does not report any symptoms at this time Reviewed: Care Plan, H&P, Labs, Medications Changes from previous H/P or p: No Changes General: Per HPI Objective Vitals Vital Signs Date Time Temp Pulse Resp B/P (MAP) Pulse Ox O2 Delivery O2 Flow Rate FiO2 04/11/25 08:47 98.8 61 18 137/73 (94) 92 98.8 04/11/25 08:00 Room Air* 0 21 Intake/Output Intake and Output 04/11/25 07:00 Intake Total 250 ml Balance 250 ml Intake Oral 250 ml # Voids 20 # Bowel Movements 12 General Appearance: Alert, Cooperative, mild distress HEENT: Atraumatic, PERRLA Lungs: Clear to auscultation, Normal air movement Cardiovascular: Normal S1, Normal S2 Abdomen: Normal bowel sounds, Soft, No tenderness, No masses Genitourinary: No Apparent Abnormalities Musculoskeletal: Normal sensory function, Normal motor function Extremities: Other (Left hip dressing dry and intact) Neuro: Normal gait, Normal speech Skin: Dry, Intact Psych/Mental Status: Mental status NL, Mood NL Medications Current Medications Medications Dose Ordered Sig/Chrissy Route Start Time Stop Time Status Last Admin Dose Admin Nitroglycerin 0.4 mg Q5MINP PRN SL 04/06/25 20:00 Morphine Sulfate 2 mg Q30M PRN IV 04/06/25 20:00 Levothyroxine Sodium 100 mcg QAM@0600 PO 04/07/25 06:00 04/11/25 06:10 100 MCG Memantine 10 mg Q12HR PO 04/07/25 10:00 04/11/25 09:40 10 MG Ketorolac Tromethamine 15 mg Q6HPRN PRN IV 04/06/25 22:15 04/11/25 22:14 04/11/25 08:22 15 MG Acetaminophen/ Hydrocodone Bitart 1 tab Q4HP PRN PO 04/06/25 22:15 04/10/25 16:33 1 TAB Ondansetron HCl 4 mg Q4HP PRN IV 04/06/25 22:15 Acetaminophen 650 mg Q6HP PRN PO 04/06/25 22:15 04/07/25 06:50 650 MG Polyethylene Glycol 17 gm DAILYPRN PRN PO 04/07/25 12:45 04/10/25 12:37 17 GM Docusate Sodium 100 mg BID PO 04/07/25 22:00 04/10/25 22:33 100 MG Lactated Ringer's 1,000 ml @ 100 mls/hr Q10H IV 04/08/25 14:30 04/11/25 12:48 100 MLS/HR Enoxaparin Sodium 30 mg Q12HR SC 04/08/25 22:00 04/11/25 09:40 30 MG Lactulose 30 ml BIDPRN PRN PO 04/10/25 12:45 04/10/25 18:18 30 ML Laboratory Results Laboratory Tests 04/10/25 15:02 Chemistry Test 04/10/25 15:02 Calcium Level 8.6 mg/dL (8.7-10.4) L Urinalysis Test 04/07/25 15:10 Urine Color Light-yellow (Yellow) Urine Clarity Clear (Clear) Urine pH 7.0 (5.0-9.0) Urine Specific [place] 1.020 (1.001-1.035) Urine Protein Negative (Negative) Urine Ketones Negative (Negative) Urine Blood Negative /uL (Negative) Urine Nitrite Negative (Negative) Urine Bilirubin Negative (Negative) Urine Urobilinogen Normal mg/dL (Negative) Urine Leukocyte Esterase Negative /uL (Negative) Urine RBC 11 /hpf (0 - 4) Urine Microscopic WBC 7 /HPF (0-5) H Urine Squamous Epithelial Cells Few /hpf (<5) Urine Bacteria Few /hpf (None Seen) H Urine Mucus Few (None Seen) Urine Glucose Normal mg/dL (Normal) Labs and/or images reviewed: Labs reviewed by me, Image(s) reviewed by me Assessment/Plan Assessment/Plan Impression: -left hip fracture, status post ORIF -bradycardia -hypothyroidism -dementia -constipation Plan: Events: Patient ambulated about 10 ft today. Dressing to left hip is dry and intact. -continues to have issues with pain. Recommend nursing to provide analgesic prior to ambulating -physical therapy -pain management -bowel regimen -PUD, DVT prophylaxis -social service consultation to assess family appropriateness for home health services with PT Total time spent with patient discussing and formulating plan of care: 35 minutes. This medical document was created using an electronic medical record system with [employer] dictation system. Although this document has been carefully reviewed, there may still be some phonetic and typographical errors. These areas are purely typographical due to imperfections of the software programs, and do not reflect any compromise in the patient's medical care. Plan discussed with: Patient, Other (RN) Date of Service: Apr 11, 2025 Billing Provider: ANGELA BALDERAS NP Common Visit Codes: [id number] INP/OBS CARE(HIGH) ANGELA BALDERAS NP Apr 11, 2025 13:34
--- NOTE | 2025-04-11 14:17 | DVHSR ---
APPROVED REPORT EXAM: Two-dimensional and M-mode echocardiogram with Doppler and color Doppler. Blood Pressure: 92/53 mmHg INDICATION HTN RISK FACTORS Height: 5'3, Weight: 125 DIMENSIONS LVDd3.9 (3.8-5.7cm)LA (2D)3.0 (1.9-4.0cm)Aortic Root3.3 (2.0-3.7cm) LVDs2.7 (2.5-4.0cm)LA (MM) (1.9-4.0cm)Aortic Cusp Exc1.6 (1.5-2.0cm) EF (%) 60.0 (55-70%)Rt. Atrium3.9 (1.9-4.0cm)Asc. Aorta3.5 cm IVSd0.9 (0.7-1.1cm)RV (D)4.5 (1.8-2.4cm) PWd0.8 (0.7-1.1cm) Mitral Valve MitralMitral Stenosis E wave0.48m/sMV Mean GR.mmHg A wave0.75m/sMV Peak GR.101mmHg E/A ratio0.62D MVAcm2 DECEL [id number] 1/2 Timems Aortic Valve Aortic ValveAortic Stenosis V10.83m/Bettye Mean GR.5mmHg V21.44m/Bettye Peak GR.8mmHg LVOT Diameter2.2 (1.8-2.4cm)Doppler AVA2.19cm2 Tricuspid Valve TR Velocity2.34m/s [id number] Other Information Technically limited study due to PT ALOC, MOVING, SITTING UP UNABLE TO MOVE. Conclusion lvef 55 % normal rv function mild LVH normal atriabiattrial enlargement no severe valve abnormaliteis noted limited study asked to read echo 1 hour ago
[2025-04-12 05:00] VITALS: BP 125/65; PULSE 64; RESP 18; TEMP 98.8; O2SAT 98
[2025-04-12 08:00] VITALS: PULSE 42; PULSE 61; RESP 18; O2SAT 97
--- NOTE | 2025-04-12 11:14 | DVHDS2 ---
Discharge Summary Date of Admission Apr 06, 2025 at 19:48 Date of Discharge: Apr 12, 2025 Labs/Diagnostic Data: Laboratory Results Test 04/10/25 15:02 04/07/25 15:10 04/06/25 20:03 White Blood Count 6.0 10^3/uL (4.4-10.8) Red Blood Count 4.04 10^6/uL (4.0-5.20) Hemoglobin 12.5 g/dL (12.2-16.2) Hematocrit 36.5 % (36.0-46.0) Mean Corpuscular Volume 90.4 fL (80.0-100.0) Mean Corpuscular Hemoglobin 30.9 pg (28.0-32.0) Mean Corpuscular Hemoglobin Concent 34.2 g/dL (32.0-36.0) Red Cell Distribution Width 14.1 % (11.8-14.3) Platelet Count 214 10^3/uL (140-450) Mean Platelet Volume 7.5 fL (6.9-10.8) Neutrophils (%) (Auto) 79.1 % (37.0-80.0) Lymphocytes (%) (Auto) 14.0 % (10.0-50.0) Monocytes (%) (Auto) 6.1 % (0.0-12.0) Eosinophils (%) (Auto) 0.5 % (0.0-7.0) Basophils (%) (Auto) 0.3 % (0.0-2.0) Neutrophils # (Auto) 4.8 10 ^3/uL (1.6-8.6) Lymphocytes # (Auto) 0.8 10 ^3/uL (0.4-5.4) Monocytes # (Auto) 0.4 10 ^3/uL (0-1.3) Eosinophils # (Auto) 0 10 ^3/uL (0-0.8) Basophils # (Auto) 0 10 ^3/uL (0-0.2) Nucleated Red Blood Cells 0.2 % Sodium Level 140 mmol/L (136-145) Potassium Level 3.6 mmol/L (3.5-5.1) Chloride Level 104 mmol/L (98-107) Carbon Dioxide Level 27 mmol/L (20-31) Anion Gap 9 (5-15) Blood Urea Nitrogen 9 mg/dL (9-23) Creatinine 0.72 mg/dL (0.550-1.02) Glomerular Filtration Rate Calc 86 mL/min (>90) BUN/Creatinine Ratio 12.5 (10.0-20.0) Serum Glucose 121 mg/dL (74-106) Calcium Level 8.6 mg/dL (8.7-10.4) Urine Color Light-yellow (Yellow) Urine Clarity Clear (Clear) Urine pH 7.0 (5.0-9.0) Urine Specific [place] 1.020 (1.001-1.035) Urine Protein Negative (Negative) Urine Ketones Negative (Negative) Urine Blood Negative /uL (Negative) Urine Nitrite Negative (Negative) Urine Bilirubin Negative (Negative) Urine Urobilinogen Normal mg/dL (Negative) Urine Leukocyte Esterase Negative /uL (Negative) Urine RBC 11 /hpf (0 - 4) Urine Microscopic WBC 7 /HPF (0-5) Urine Squamous Epithelial Cells Few /hpf (<5) Urine Bacteria Few /hpf (None Seen) Urine Mucus Few (None Seen) Urine Glucose Normal mg/dL (Normal) Prothrombin Time 10.4 sec (9.3-11.8) Prothrombin Time INR 0.98 (0.9-1.15) Activated Partial Thromboplast Time 25.9 SEC (24.5-34.5) Total Bilirubin 0.5 mg/dL (0.2-1.0) Aspartate Amino Transferase (AST) 26 U/L (13-40) Alanine Aminotransferase (ALT) 17 U/L (7-40) Alkaline Phosphatase 104 U/L (46-116) Troponin I High Sensitivity 4 ng/L (</=34) Total Protein 7.2 g/dL (5.7-8.2) Albumin 4.1 g/dL (3.2-4.8) Thyroid Stimulating Hormone (TSH) 2.06 uIU/mL (0.55-4.78) Other Laboratory Tests 04/10/25 15:02 Brief Hx & Hospital Course: SEE DICTATED NOTE Condition at Discharge: Fair Final Diagnosis/Problems List HIP FRACTURE Discharge Disposition: Home with Health Services Discharge Instruct/Medications Diet: Regular Activity: No Restrictions, As Tolerated Follow Up/Referral: FU WITH ORTHO IN 2 WKS Medications: RESUME HOME MEDS SCRIPT TO PHARMACY Scheduled Donepezil Hydrochloride (Donepezil Hcl), 1 TAB PO DAILY, (Reported) Levothyroxine Sodium (Levothyroxine Sodium), 1 TAB PO DAILY, (Reported) Memantine Hydrochloride (Memantine HCl), 1 TAB PO BID, (Reported) Quetiapine Fumerate (Seroquel), 1 TAB PO BID, (Reported) Rivastigmine Tartrate (Rivastigmine Tartrate), 1 CAP PO BID, (Reported) Discharge Statement: "Patient was advised to return to the ER or call 911 if any headaches, dizziness, shortness of breath, chest pain, abdominal pain, bleeding, fevers, or worsening of medical condition. Patient was counseled about treatment plan, medications, possible side effects, patientverbalized understanding. All questions were answered to the best of my ability. This discharge took greater then 30 minutes in planning, reviewing documentation, counseling the patient, and discussing with other team members." ASSESSMENT ASSESSMENT Assessment HIP FRACTURE Date of Service: Apr 12, 2025 Billing Provider: ROSHNI WHITAKER MD Common Visit Codes: [id number]-RPW/OBS DISCH DAY >30min ROSHNI WHITAKER MD Apr 12, 2025 11:14
[2025-04-12] MEDS ORDERED: ASPI-498 PO (11:16)
[2025-04-12] MEDS ORDERED: HYDR1TAB97 PO (11:16)
--- NOTE | 2025-04-12 11:29 | DVHDS ---
DATE OF DISCHARGE: 04/12/2025 HISTORY OF PRESENT ILLNESS: The patient is a 79-year-old lady who is admitted with history of fall and subsequent pain in the left hip. The patient has history of hypothyroidism, congestive heart failure and Alzheimer's disease. HOSPITAL COURSE: The patient was seen in Orthopedic consult by Dr. Aleman. The patient had an echocardiogram done that showed an ejection fraction of 55%. The patient underwent surgery on the left hip on 04/08/2025. The patient has done well postoperatively and is ambulating with physical therapy. TSH was normal at 2.06. She will now be discharged home to resume her home medications along with home physical therapy. The patient will also receive Peebles p.r.n. for pain and aspirin 81 mg daily. She will follow up with her primary and Orthopedics in 2 weeks. FINAL DIAGNOSES: * Femur fracture, status post surgery. * Dementia. * Hypothyroidism. * Bradycardia. Time spent in discharge planning and review of plan with the patient and nursing was 38 minutes. MD KATHLEEN Griffin/MARY TID: [id number] RECEIPT: [id number]
[2025-04-12 13:11] VITALS: BP 118/61; PULSE 61; RESP 19; TEMP 97.6; O2SAT 97
== END 2025-04-12 15:00 | disposition home health service (06) | DRG 481 ==
LOC: ER 15:59 → OVERFLOW 19:48 → TELE-WESTW 22:18
PROVIDERS: ADMIT Nurse Practitioner Acute Care; ATTEND Nurse Practitioner Acute Care
PROC: 0QS734Z Reposition Left Upper Femur with Internal Fixation Device, Percutaneous Approach (ICD-10-PCS; principal; 2025-04-08 13:18)
DX: S72.142A Displaced intertrochanteric fracture of left femur, initial encounter for closed fracture (principal); F02.84 Dementia in other diseases classified elsewhere, unspecified severity, with anxiety; I50.9 Heart failure, unspecified; E03.9 Hypothyroidism, unspecified; R00.1 Bradycardia, unspecified; E87.6 Hypokalemia; G30.9 Alzheimer's disease, unspecified; K59.00 Constipation, unspecified; Z79.82 Long term (current) use of aspirin; Z82.49 Family history of ischemic heart disease and other diseases of the circulatory system; Z83.3 Family history of diabetes mellitus; Z88.5 Allergy status to narcotic agent; Z90.710 Acquired absence of both cervix and uterus; Z90.49 Acquired absence of other specified parts of digestive tract; Z79.899 Other long term (current) drug therapy; W18.30XA Fall on same level, unspecified, initial encounter; Y93.89 Activity, other specified; Y92.89 Other specified places as the place of occurrence of the external cause; Y99.8 Other external cause status
CPT/HCPCS: 36415; 71045; 73502; 74176; 76000; 80048; 80053; 81001; 84443; 84484; 85025; 85610; 85730; 86850; 86900; 86901; 93005; 93306; 97110; 97116; 97163; 97530; G0378; J1885; J2250; J2405; J2704

== ENCOUNTER 2025-05-21 13:59 | Emergency (ER) | payer OTHER, MEDICAID ==
[~2025-05-21] VITALS: Ht 160 cm; Wt 56.8 kg
[~2025-05-21 13:59] MED LIST changes: +ASPI-498 PO; -CIPR-173 PO; +DONE1TAB88 PO; +HYDR1TAB97 PO; -LEVO-848 PO; -LEVO-849 PO; -QUET1TAB11 PO
--- NOTE | 2025-05-21 15:04 | DVH ---
CLINICAL INFORMATION: Fall injury. TECHNIQUE: Axial imaging was obtained through the brain without contrast. Coronal and sagittal reformatted images were obtained, reviewed, and stored. Images were reviewed in brain and bone windows. All CT scans at this medical facility are performed using dose modulation techniques as appropriate to a performed exam including the following: Automated exposure control was utilized; adjustment of the MA and/or KV according to patient size; and use of iterative reconstruction technique. CTDIvol = 51.19 mGy DLP = 906.5 mGy-cm COMPARISON: CT BRAIN on DOS: 12/02/24, CT HEAD WITHOUT CONTRAST on DOS: 01/26/24, HEAD WITHOUT CONTRAST on DOS: 03/28/20 FINDINGS: There is no acute intracranial hemorrhage. No mass effect or midline shift. Scattered areas of hypoattenuation are seen in the periventricular and subcortical white matter, which are nonspecific but most likely sequelae of small vessel ischemic disease. The ventricles and sulci are within normal limits in size for age. Basal cisterns are patent. The calvarium is unremarkable. Paranasal sinuses and mastoid air cells are clear. IMPRESSION: 1. No CT evidence of acute intracranial abnormality. 2. Nonacute findings as described above.
--- NOTE | 2025-05-21 15:12 | ED.PDOC ---
Jer[place]. trauma (HPI) HPI Comments A 79 YEAR OLD FEMALE PRESENTS TO THE ED WITH COMPLAINT OF FOREHEAD ABRASION AND BRUISE. PATIENT'S GRANDDAUGHTER STATES THAT SHE THINKS THE PATIENT MAY HAVE HIT HER HEAD ON FELL EARLIER TODAY SINCE SHE NOW HAS AN ABRASION AND BRUISE TO THE RIGHT SIDE OF HER FOREHEAD. PATIENT'S GRANDDAUGHTER WAS NOTES SURE HOW THE PAT IENT INJURED HER FOREHEAD DUE TO THE PATIENT HAVING DEMENTIA, BUT WOULD LIKE TO HAVE HER EVALUATED REGARDLESS. PATIENT DENIES VISION CHANGES, LOC, NECK INJURY, FEVER, CHILLS, SHORTNESS OF BREATH, CHEST PAIN, ABDOMINAL PAIN, NAUSEA, VOMITING, HEADACHE, OR OTHER COMPLAINTS. NO OTHER SYMPTOMS OR MODIFYING FACTORS AT THIS TIME. PATIENT IS ALERT, ORIENTED X 4, AND HAS STEADY GAIT. Chief Complaint: Head Injury Time Seen by MD: 14:17 Primary Care Provider: SALOME Reviewed notes: Nurses Notes, Medications, Allergies Allergies: Coded Allergies: Codeine (Verified Allergy, Unknown, 01/16/15) Home Meds Active Scripts Acetaminophen (Tylenol 8 Hour Arthritis) 650 Mg Tab, 650 MG PO TID, #30 TAB Prov:DORIS ALVAREZ 05/21/25 Aspirin (ASPIRIN 81) 81 Mg Tab, 81 MG PO DAILY for 30 Days, #30 TAB Prov:ROSHNI WHITAKER MD 04/12/25 Hydrocodone-Acetaminophen (Hydrocodone/Acetaminophen 5-325 mg) 1 Tab Tab, 1 TAB PO TIDP PRN for 7 Days, #21 TAB Prov:ROSHNI WHITAKER MD 04/12/25 Reported Medications Donepezil Hydrochloride (DONEPEZIL HCL) 10 Mg Tab, 1 TAB PO DAILY, #90 TAB 1 Refill 04/06/25 Quetiapine Fumerate (Seroquel) 50 Mg Tab, 1 TAB PO BID for 90 Days, #180 04/06/25 Rivastigmine Tartrate (Rivastigmine Tartrate) 1.5 Mg Cap, 1 CAP PO BID for 90 Days, #180 04/06/25 Memantine Hydrochloride (Memantine HCl) 10 Mg Tab, 1 TAB PO BID for 90 Days, #180 04/04/23 Levothyroxine Sodium (Levothyroxine Sodium) 75 Mcg Tab, 1 TAB PO DAILY for 90 Days, #90 04/04/23 Information Source: Patient, Relative (GrandChild) Mode of Arrival: Wheelchair Severity: Moderate Timing: Hours Duration: Since onset, Hours Prehospital treatment: None Location: Head (FOREHEAD) Location of laceration: None Mechanism: Blunt trauma Associated signs and symtoms: None Past Medical History PAST MEDICAL HISTORY: Alzheimer, Anxiety, CHF, Dementia, Thyroid Surgical History: BTL, Cholecystectomy, Hysterectomy EXTRUSION MANAGER History: No Pertinent EXTRUSION MANAGER History Family History Family History: Reviewed,noncontributory to illness, Family hx of DM, Family hx of HTN Social History Smoker: Non-Smoker Alcohol: Denies ETOH Use Drugs: Denies Drug Use Lives In: Home Constitutional: denies: chills, diaphoresis, fatigue, fever, malaise, sweats, weakness, others EENTM: denies: blurred vision, double vision, ear bleeding, ear discharge, ear drainage, ear pain, ear ringing, eye pain, eye redness, hearing loss, mouth pain, mouth swelling, nasal discharge, nose bleeding, nose congestion, nose pain, photophobia, tearing, throat pain, throat swelling, voice changes, others Respiratory: denies: cough, hemoptysis, orthopnea, SOB at rest, shortness of breath, SOB with excertion, stridor, wheezing, others Cardiovascular: denies: chest pain, dizzy spells, diaphoresis, Dyspnea on exertion, edema, irregular heart beat, left arm pain, lightheadedness, palpitations, PND, syncope, others Gastrointestinal: denies: abdomen distended, abdominal pain, blood streaked bowels, constipated, diarrhea, dysphagia, difficulty swallowing, hematemesis, melena, nausea, poor appetite, poor fluid intake, rectal bleeding, rectal pain, vomiting, others Genitourinary: denies: abnormal vagina bleeding, burning, dyspareunia, dysuria, flank pain, frequency, hematuria, incontinence, pain, , vagina disc harge, urgency, others Neurological: denies: dizziness, fainting, headache, left sided numbness, left sided weakness, numbness, paresthesia, pre-existing deficit, right sided numbness, right sided weakness, seizure, speech problems, tingling, tremors, weakness, others Musculoskeletal: denies: back pain, gout, joint pain, joint swelling, muscle pain, muscle stiffness, neck pain, others Integumetry: reports: bruises, others (FOREHEAD ABRASION); denies: change in color, change in hair/nails, dryness, laceration, lesions, lumps, rash, wounds Allergic/Immunocompromised: denies: Difficulty Healing, Frequent Infections, Hives, Itching, others Hematologic/Lymphatic: denies: anemia, blood clots, easy bleeding, easy bruising, swollen glands, others Endocrine: denies: excessive hunger, excessive sweating, excessive thirst, excessive urination, flushing, intolerance to cold, intolerance to heat, unexplained weight gain, unexplained weight loss, others Psychiatric: denies: anxiety, bipolar disorder, depression, hopeless, panic disorder, schizophrenia, sleepless, suicidal, others All Other Systems: Reviewed and Negative Physical Exam General Appearance: No Apparent Distress, Normal HEENT: Head (CONTUSION AND ABRASION ON RIGHT FOREHEAD, NO BONY TENDERNESS AND DEFORMITY. ), Normal ENT Inspection, PERRL/EOMI, Pharynx Normal, TMs Normal Neck: Full Range of Motion, Non-Tender, Normal, Normal Inspection Respiratory: Chest Non-Tender, Lungs Clear, No Accessory Muscle Use, No Respiratory Distress, Normal Breath Sounds Cardiovascular: No Edema, No JVD, No Murmur, No Gallop, Normal Peripheral Pulses, Regular Rate/Rhythm Breast Exam: Deferred Gastrointestinal: No Organomegaly, Non Tender, No Pulsatile Mass, Normal Bowel Sounds, Soft Genitalia: Deferred Pelvic: Deferred Rectal: Deferred Extremities: No calf tenderness, Normal capillary refill, Normal inspection, Normal range of motion, Non-tender, No pedal edema Musculoskeletal : Apperance: Normal Neurologic: Alert, hardboard press operator II-XII nml as Tested, No Motor Deficits, Normal Affect, Normal Mood, No Sensory Deficits Cerebellar Function: Normal Reflexes: Normal Skin: Bruises (AND ABRASION ON RIGHT FOREHEAD, NO BLEEDING AND FB. ), Dry, Normal Color, Warm Peripheral Pulses: 2+ carotid (R), 2+ carotid (L) Lymphatic: No Adenopathy Was a procedure done? Was a procedure done?: No Differential Diagnosis Multiple Trauma: Closed Head Injury, Fractures, Cerebral Contusion, Abrasions, Contusion, Hematoma Neck Injury: N/A X-Ray, Labs, Meds, VS Vital Signs Date Time Temp Pulse Resp B/P (MAP) Pulse Ox O2 Delivery O2 Flow Rate FiO2 05/21/25 14:03 97.6 54 16 98/76 97 97.6 CLINICAL INFORMATION: Fall injury. TECHNIQUE: Axial imaging was obtained through the brain without contrast. Coronal and sagittal reformatted images were obtained, reviewed, and stored. Images were reviewed in brain and bone windows. All CT scans at this medical facility are performed using dose modulation techniques as appropriate to a performed exam including the following: Automated exposure control was utilized; adjustment of the MA and/or KV according to patient size; and use of iterative reconstruction technique. CTDIvol = 51.19 mGy DLP = 906.5 mGy-cm COMPARISON: CT BRAIN on DOS: 12/02/24, CT HEAD WITHOUT CONTRAST on DOS: 01/26/24, HEAD WITHOUT CONTRAST on DOS: 03/28/20 FINDINGS: There is no acute intracranial hemorrhage. No mass effect or midline shift. Scattered areas of hypoattenuation are seen in the periventricular and subcortical white matter, which are nonspecific but most likely sequelae of small vessel ischemic disease. The ventricles and sulci are within normal limits in size for age. Basal cisterns are patent. The calvarium is unremarkable. Paranasal sinuses and mastoid air cells are clear. IMPRESSION: 1. No CT evidence of acute intracranial abnormality. 2. Nonacute findings as described above. ATED BY: DIAZ PATEL DO DICTATED DATE/TIME: 05/21/25 1502 SIGNED BY: DIAZ PATEL DO SIGNED DATE/TIME: 05/21/25 1502 CC: X-Ray, Labs, Meds, VS Comment EXTERNAL MEDICAL RECORDS REVIEWED: [NONE] INDEPENDENT HISTORIANS: [NONE] SOCIAL DETERMINANTS OF HEALTH: [NONE] LABS ORDERED: NONE REVIEWED AND INTERPRETED RESULTS: NONE IMAGING ORDERED: CT BRAIN TREATMENTS ORDERED: NONE PROCEDURES PERFORMED: NONE CRITICAL CARE TIME: NONE I HAVE DISCUSSED THE PATIENT WITH THE ATTENDING PHYSICIAN DR. ANDREW AND HE AGREES WITH THE PATIENT'S PLAN OF CARE AND DISPOSITION. BASED ON HISTORY OF PRESENT ILLNESS, AND PHYSICAL EXAM, PATIENT WILL BE DISCHARGED HOME. SHARED DECISION MAKING: PATIENT INSTRUCTED TO FOLLOW UP WITH PRIMARY CARE PROVIDER IN 1-2 DAYS FOR RE-EVALUATION OF SYMPTOMS. PATIENT VERBALIZES UNDERSTANDING TO RETURN TO ED FOR NEW OR WORSENING SYMPTOMS OR IF FOLLOW UP WITH PCP CANNOT BE OBTAINED. PATIENT FEELS COMFORTABLE GOING HOME AT THIS TIME. ALL QUESTIONS ADDRESSED AT TIME OF DISCHARGE. Images Reviewed?: Images reviewed and evaluated by me Time of 1ST Reevaluation: 15:25 Reevaluation 1ST: Improved Patient Education/Counseling: Diagnosis, Treatment, Need For Follow Up Family Education/Counseling: Diagnosis, Treatment, Need For Follow Up Medical Screening: No EMC Exist At This Time Departure 1 Departure Time of Disposition: 15:25 Impression: Primary Impression: Forehead abrasion Qualified Codes: S00.81XA - Abrasion of other part of head, initial encount er Additional Impression: Contusion of forehead Qualified Codes: S00.83XA - Contusion of other part of head, initial encounter Disposition: HOME / SELF CARE / HOMELESS Condition: Stable Additional Instructions: FOLLOW-UP WITH PCP IN 1 TO 2 DAYS. TAKE MEDICATIONS PRESCRIBED. RETURN TO ED FOR ANY NEW OR WORSENING SYMPTOMS. e-Prescriptions Acetaminophen (Tylenol 8 Hour Arthritis) 650 Mg Tab 650 MG PO TID, #30 TAB Prov: DORIS ALVAREZ 05/21/25 Discharged With: Self, Relative Critical Care Note Critical Care Time?: No Stability Stability form required: No I personally scribed for DORIS ALVAREZ ([email or web address]) on 05/21/25 at 15:12. Electronically submitted by Prakash Stewart ([email or web address]). DORIS ALVAREZ May 21, 2025 15:12
[2025-05-21] MEDS ORDERED: ACET-1080 PO (15:22)
[2025-05-21 15:33] VITALS: BP 98/79; PULSE 69; RESP 17; TEMP 98.6; O2SAT 97
== END 2025-05-21 15:36 | disposition home or self-care (01) ==
LOC: ER 13:59
DX: S00.83XA Contusion of other part of head, initial encounter (principal); S00.81XA Abrasion of other part of head, initial encounter; F41.9 Anxiety disorder, unspecified; I50.9 Heart failure, unspecified; G30.9 Alzheimer's disease, unspecified; F02.80 Dementia in other diseases classified elsewhere, unspecified severity, without behavioral disturbance, psychotic disturbance, mood disturbance, and anxiety; Z79.899 Other long term (current) drug therapy; Z90.710 Acquired absence of both cervix and uterus; Z90.49 Acquired absence of other specified parts of digestive tract; Z79.890 Hormone replacement therapy; Z79.82 Long term (current) use of aspirin; Z88.5 Allergy status to narcotic agent; X58.XXXA Exposure to other specified factors, initial encounter; Y93.89 Activity, other specified; Y92.89 Other specified places as the place of occurrence of the external cause; Y99.8 Other external cause status
CPT/HCPCS: 70450